=== PATIENT | male | born 1965 | race Caucasian/White ===

== ENCOUNTER 2017-11-27 09:27 | Emergency (ER) | payer OTHER ==
[2017-11-27] MEDS ORDERED: HYDROCODONE/APAP 10/325 TAB ONE (10:20)
[2017-11-27] MEDS ORDERED: COLCHICINE 0.6 MG TAB ONE (10:21)
--- NOTE | 2017-11-27 10:32 | EDPHYS ---
Physician Documentation [facility] Name: Zeus Leone Age: 52 yrs Sex: Male : 1965 Arrival Date: 11/27/2017 Time: 09:29 Bed 15 Private MD: Osbaldo Hernandez S ED Physician Dagoberto Mason HPI: 11/27 10:07 This 52 yrs old Male presents to ER via Ambulatory with complaints of Knee moi Pain. 10:07 The patient presents with decreased range of motion, pain, that is acute. The moi complaints affect the medial aspect of left knee. Context: The problem was sustained at an unknown site. Onset: The symptoms/episode began/occurred 1 week(s) ago. Modifying factors: The symptoms are alleviated by elevating leg, remaining still, the symptoms are aggravated by movement, bending knee. Associated signs and symptoms: The patient has no apparent associated signs or symptoms. Treatment prior to arrival includes: no previous treatment. Severity of symptoms: At their worst the symptoms were moderate. The patient has not experienced similar symptoms in the past. Historical: - Allergies: 09:47 NKA; iw - Home Meds: 09:47 metformin 500 mg Oral tab 1 tab 2 times per day [Active]; unknown BP medication iw [Active]; - PMHx: 09:47 Hypertension; Diabetes - NIDDM; iw - PSHx: 09:47 Carpal Tunnel Repair; adrenal gland removal; right shoulder; iw - Immunization history:: Adult Immunizations not up to date. - Social history:: Smoking status: Patient/guardian denies using tobacco. - Family history:: not pertinent. ROS: 10:07 Constitutional: Negative for fever, chills, and weight loss, Eyes: Negative for injury, moi pain, redness, and discharge, ENT: Negative for injury, pain, and discharge, Neck: Negative for injury, pain, and swelling, Cardiovascular: Negative for chest pain, palpitations, and edema, Respiratory: Negative for shortness of breath, cough, wheezing, and pleuritic chest pain, Abdomen/GI: Negative for abdominal pain, nausea, vomiting, diarrhea, and constipation, Back: Negative for injury and pain, : Negative for injury, bleeding, discharge, and swelling, Skin: Negative for injury, rash, and discoloration, Neuro: Negative for headache, weakness, numbness, tingling, and seizure, Psych: Negative for depression, anxiety, suicide ideation, homicidal ideation, and hallucinations, Allergy/Immunology: Negative for hives, rash, and allergies, Endocrine: Negative for neck swelling, polydipsia, polyuria, polyphagia, and marked weight changes, Hematologic/Lymphatic: Negative for swollen nodes, abnormal bleeding, and unusual bruising. 10:07 MS/extremity: Positive for tenderness, of the medial aspect of left knee. Exam: 10:07 Constitutional: This is a well developed, well nourished patient who is awake, alert, moi and in no acute distress. Head/Face: Normocephalic, atraumatic. Eyes: Pupils equal round and reactive to light, extra-ocular motions intact. Lids and lashes normal. Conjunctiva and sclera are non-icteric and not injected. Cornea within normal limits. Periorbital areas with no swelling, redness, or edema. ENT: Nares patent. No nasal discharge, no septal abnormalities noted. Tympanic membranes are normal and external auditory canals are clear. Oropharynx with no redness, swelling, or masses, exudates, or evidence of obstruction, uvula midline. Mucous membranes moist. Neck: Trachea midline, no thyromegaly or masses palpated, and no cervical lymphadenopathy. Supple, full range of motion without nuchal rigidity, or vertebral point tenderness. No Meningismus. Chest/axilla: Normal chest wall appearance and motion. Nontender with no deformity. No lesions are appreciated. Cardiovascular: Regular rate and rhythm with a normal S1 and S2. No gallops, murmurs, or rubs. Normal PMI, no JVD. No pulse deficits. Respiratory: Lungs have equal breath sounds bilaterally, clear to auscultation and percussion. No rales, rhonchi or wheezes noted. No increased work of breathing, no retractions or nasal flaring. Abdomen/GI: Soft, non-tender, with normal bowel sounds. No distension or tympany. No guarding or rebound. No evidence of tenderness throughout. Back: No spinal tenderness. No costovertebral tenderness. Full range of motion. Male : Normal genitalia with no discharge or lesions. Skin: Warm, dry with normal turgor. Normal color with no rashes, no lesions, and no evidence of cellulitis. Neuro: Awake and alert, GCS 15, oriented to person, place, time, and situation. Cranial nerves II-XII grossly intact. Motor strength 5/5 in all extremities. Sensory grossly intact. Cerebellar exam normal. Normal gait. Psych: Awake, alert, with orientation to person, place and time. Behavior, mood, and affect are within normal limits. 10:07 Musculoskeletal/extremity: Extremities: noted in the medial aspect of left knee: decreased ROM, pain. Vital Signs: 09:47 Pulse 68; Resp 18 S; Temp 97.2; Pulse Ox 98% on R/A; Weight 128.82 kg; Height 5 ft. 11 iw in. (180.34 cm); Pain 9/10; 10:45 BP 157 / 93; Pulse 71; Resp 18; Pulse Ox 99% on R/A; em 09:47 Body Mass Index 39.61 (128.82 kg, 180.34 cm) iw MDM: 09:37 Patient medically screened. [facility] 10:07 Data reviewed: vital signs, nurses notes, radiologic studies. [facility] 11/27 10:07 Order name: Knee Left 3 View XRAY [facility] 11/27 10:07 Order name: Knee Immobilizer; Complete Time: 10:14 [facility] 11/27 10:07 Order name: Ice pack; Complete Time: 10:14 [facility] Administered Medications: 10:25 Drug: [place] 10 mg-325 mg 1 tabs Route: PO; em 11:17 Follow up: Response: No adverse reaction; Pain is decreased em 10:25 Drug: Colcrys 1.2 mg Route: PO; em 11:17 Follow up: Response: No adverse reaction em 11:13 Drug: Colcrys 0.6 mg Route: PO; em 11:17 Follow up: Response: No adverse reaction; Medication administered at discharge. em Disposition: 11/27/17 10:32 Discharged to Home. Impression: Pain in left knee, Osteoarthritis of knee - tricarpment involment. - Condition is Stable. - Discharge Instructions: Knee Bracing, Knee Pain, Knee Pain, [id number]. - Prescriptions for Ibuprofen 600 mg Oral Tablet - take 1 tablet by ORAL route every 6 hours As needed take with food; 24 tablet. Tylenol- Codeine #3 300-30 mg Oral Tablet - take 2 tablet by ORAL route every 6 hours As needed; 30 tablet. - Medication Reconciliation Form, Thank You Letter, Antibiotic Education, Prescription Opioid Use form. - Follow up: Osbaldo Hernandez; When: 2 - 3 days; Reason: Recheck today's complaints, Continuance of care, Re-evaluation by your physician. Follow up: Kevyn Mike; When: 2 - 3 days; Reason: Recheck today's complaints, Re-evaluation by your physician. - Problem is new. - Symptoms have improved. Signatures: Dispatcher [employer] EDDagoberto De La Rosa MD MD cha Munoz, Edgar, NARROW FABRIC CALENDERER NARROW FABRIC CALENDERER em Ester Gonzales RN RN iw Corrections: (The following items were deleted from the chart) 11:18 10:32 11/27/2017 10:32 Discharged to Home. Impression: Pain in left knee; em Osteoarthritis of knee - tricarpment involment. Condition is Stable. Discharge Instructions: Knee Bracing, Knee Pain, Knee Pain, [id number]. Prescriptions for Ibuprofen 600 mg Oral Tablet - take 1 tablet by ORAL route every 6 hours As needed take with food; 24 tablet, Tylenol-Codeine #3 300-30 mg Oral Tablet - take 2 tablet by ORAL route every 6 hours As needed; 30 tablet. and Forms are Medication Reconciliation Form, Thank You Letter, Antibiotic Education, Prescription Opioid Use. Follow up: Osbaldo Hernandez; When: 2 - 3 days; Reason: Recheck today's complaints, Continuance of care, Re-evaluation by your physician. Follow up: Kevyn Mike; When: 2 - 3 days; Reason: Recheck today's complaints, Re-evaluation by your physician. Problem is new. Symptoms have improved. moi
--- NOTE | 2017-11-27 10:32 | ER ---
Nurse's Notes [facility] Name: Zeus Leone Age: 52 yrs Sex: Male : 1965 Arrival Date: 11/27/2017 Time: 09:29 Bed 15 Private MD: Osbaldo Hernandez S Diagnosis: Pain in left knee;Osteoarthritis of knee-tricarpment involment Presentation: 11/27 09:44 Presenting complaint: Patient states: has had left knee pain over past few months, iw walks up and down stairs a lot at work, pain has gotten worse, denies injury to knee, also has hx of gout but this feels different, no redness or swelling noted to knee. Transition of care: patient was not received from another setting of care. Onset of symptoms was August 2017. Initial Sepsis Screen: Does the patient meet any 2 criteria? No. Patient's initial sepsis screen is negative. Does the patient have a suspected source of infection? No. Patient's initial sepsis screen is negative. Care prior to arrival: None. 09:44 Method Of Arrival: Ambulatory iw 09:44 Acuity: YAIR 4 iw Historical: - Allergies: 09:47 NKA; iw - Home Meds: 09:47 metformin 500 mg Oral tab 1 tab 2 times per day [Active]; unknown BP medication iw [Active]; - PMHx: 09:47 Hypertension; Diabetes - NIDDM; iw - PSHx: 09:47 Carpal Tunnel Repair; adrenal gland removal; right shoulder; iw - Immunization history:: Adult Immunizations not up to date. - Social history:: Smoking status: Patient/guardian denies using tobacco. - Family history:: not pertinent. Screenin:05 Abuse screen: Denies threats or abuse. Nutritional screening: No deficits noted. em Tuberculosis screening: No symptoms or risk factors identified. Fall Risk None identified. Assessment: 10:22 General: Appears in no apparent distress. comfortable, Behavior is calm, cooperative. em Pain: Complains of pain in left leg Pain currently is 9 out of 10 on a pain scale. Neuro: Level of Consciousness is awake, alert, obeys commands, Oriented to person, place, time, situation. Cardiovascular: Capillary refill < 3 seconds Patient's skin is warm and dry. Respiratory: Airway is patent Respiratory effort is even, unlabored, Respiratory pattern is regular, symmetrical. GI: Abdomen is round non-distended. : No signs and/or symptoms were reported regarding the genitourinary system. Derm: Skin is intact, Skin is pink, warm \T\ dry. Musculoskeletal: Range of motion: intact in all extremities. 10:35 Reassessment: Patient appears in no apparent distress at this time. I agree with above iw assessment by Rafael Lawton LVN. 11:15 Reassessment: Patient appears in no apparent distress at this time. Patient and/or em family updated on plan of care and expected duration. Pain level reassessed. Patient is alert, oriented x 3, equal unlabored respirations, skin warm/dry/pink. Vital Signs: 09:47 Pulse 68; Resp 18 S; Temp 97.2; Pulse Ox 98% on R/A; Weight 128.82 kg; Height 5 ft. 11 iw in. (180.34 cm); Pain 9/10; 10:45 BP 157 / 93; Pulse 71; Resp 18; Pulse Ox 99% on R/A; em 09:47 Body Mass Index 39.61 (128.82 kg, 180.34 cm) iw ED Course: 09:29 Patient arrived in ED. mr 09:29 Osbaldo Hernandez MD is Private Physician. mr 09:37 Dagoberto Mason MD is Attending Physician. moi 09:46 Triage completed. iw 09:47 Arm band placed on. iw 10:05 Rafael Lawton LVN is Primary Nurse. em 10:22 Patient has correct armband on for positive identification. Bed in low position. Call em light in reach. Adult w/ patient. 10:30 Osbaldo Hernandez MD is Referral Physician. moi 10:30 Kevyn Mike MD is Referral Physician. moi 10:45 No provider procedures requiring assistance completed. Patient did not have IV access em during this emergency room visit. 11:00 Crutch training done. Knee immobilizer applied on left knee. em 11:08 Knee Left 3 View XRAY In Process Unspecified. EDMS Administered Medications: 10:25 Drug: [place] 10 mg-325 mg 1 tabs Route: PO; em 11:17 Follow up: Response: No adverse reaction; Pain is decreased em 10:25 Drug: Colcrys 1.2 mg Route: PO; em 11:17 Follow up: Response: No adverse reaction em 11:13 Drug: Colcrys 0.6 mg Route: PO; em 11:17 Follow up: Response: No adverse reaction; Medication administered at discharge. em Outcome: 10:32 Discharge ordered by . moi 11:15 Discharged to home ambulatory, with crutches. em 11:15 Condition: good 11:15 Discharge instructions given to patient, family, Instructed on discharge instructions, follow up and referral plans. medication usage, Demonstrated understanding of instructions, follow-up care, medications, Prescriptions given X 2. 11:18 Patient left the ED. em Signatures: Dispatcher [employer] EDMS Dagoberto Mason MD MD cha Rivera, Maria mr Munoz, Edgar, EQUIPMENT MANAGER EQUIPMENT MANAGER em Ester Gonzales, TEJ RN iw
--- NOTE | 2017-11-27 13:49 | RAD REPORT ---
EXAM DESCRIPTION: RAD - Knee Left 3 View - 11/27/2017 11:08 am CLINICAL HISTORY: Knee pain COMPARISON: None. FINDINGS: No fracture, dislocation or periosteal reaction.No joint effusion seen. No significant pratik nt space narrowing. Meniscus calcifications are present. Marginal spurs are present. There is spurrin g of the intercondylar notch and tibial spine. No soft tissue abnormality. No foreign body seen. IMPRESSION: Moderate for age degenerative changes in the knee. No acute bone or joint finding. Clinical concerns for internal derangement or occult bony injury could be further assessed with MR im aging.
== END 2017-11-27 11:18 | disposition home or self-care (01) ==
LOC: ER 09:27
DX: M17.12 Unilateral primary osteoarthritis, left knee (principal); I10 Essential (primary) hypertension; E11.9 Type 2 diabetes mellitus without complications
CPT/HCPCS: 99284

== ENCOUNTER 2020-06-14 12:48 | Emergency (ER) | payer OTHER ==
--- OUTSIDE RECORDS SUMMARY | 2020-06-14 12:53 | XMS REPORT | Summary of Care ---
:1965 Author Organization [facility] Address [address] [place] [id number] Care Team Providers Name Role Phone Osbaldo Hernandez MD Primary Care Provider Reason for Visit Reason Comments LAB WORK Auth/Cert Status Reason Specialty Diagnoses / Procedures Referred By C ontact Referred To Contact Phlebotomy Diagnoses Generalized abdominal pain Adc Pob Lab Draw Procedures FECES CULTURE URINE CULTURE UA CMP CBC Professional Office Building [address] , [address] [place] [address] Phone: Fax: Encounter Details Date Type Department Care Team Description 05/14/2020 Taxicab Dispatcher Visit [facility] Anaya Newton FNP [address] [phone] Generalized Professional Office Pob, Adc Lab Main abdominal pain Building Phlebotomy Lab Professional Office Building [address] , [address] [place] [address] Allergies No Known Allergiesdocumented as of this encounter (statuses as of 05/14/2020) Medications Medication Sig Dispensed Refills Start Date End Date Status ONETOUCH VERIO strip TEST BLOOD 100 Strip 0 01/25/2018 Active SUGAR 2 TIMES A DAY sildenafil 100 mg tablet Take 1 tablet 24 tablet 1 03/09/2018 Active by mouth as needed for Other (prn, sexual activity). LISINOPRIL 20 mg TAKE 1 TABLET 60 tablet 0 05/15/2019 Active tabletIndications: BY MOUTH TWICE Uncontrolled hypertension A DAY SITagliptin 100 mg Take 1 tablet 30 tablet 3 06/22/2019 Active tabletIndications: Type 2 by mouth diabetes mellitus without daily. complication, without long-term current use of insulin METFORMIN 1,000 mg TAKE 1 TABLET 180 tablet 1 01/08/2020 Active tabletIndications: Type 2 BY MOUTH TWICE diabetes mellitus without A DAY WITH complication, without MEALS long-term current use of insulin ATORVASTATIN 10 mg tablet TAKE 1 TABLET 30 tablet 1 01/31/2020 Active BY MOUTH EVERYDAY AT BEDTIME HYDROCHLOROTHIAZIDE 12.5 TAKE 1 CAPSULE 90 capsule 0 0 Active mg capsuleIndications: BY MOUTH EVERY Essential hypertension DAY CARVEDILOL 12.5 mg TAKE 1 TABLET 180 tablet 0 03/29/2020 Active tabletIndications: BY MOUTH TWICE Essential hypertension A DAY WITH MEALS dicyclomine (BENTYL) 10 Take 2 180 capsule 0 05/14/2020 Active mg capsuleIndications: capsules by 0 Generalized abdominal mouth 3 pain, Diarrhea, (three) times unspecified type daily for 30 days. documented as of this encounter (statuses as of 05/14/2020) Active Problems Problem Noted Date Obesity (BMI 30-39.9) 11/16/2018 Uncontrolled hypertension 10/07/2017 Paresthesia of both feet 10/07/2017 Lower extremity edema 10/07/2017 Type 2 diabetes mellitus without complication 10/08/19 18 Other hyperlipidemia 10/07/2017 documented as of this encounter (statuses as of 05/14/2020) Resolved Problems Problem Noted Date Resolved Date Rash 10/07/2017 10/28/2017 Other specified hypothyroidism 10/07/2017 8 Chronic gout of multiple sites, unspecified cause 10/07/2017 10/28/2017 documented as of this encounter (statuses as of 05/14/2020) Social History Tobacco Use Types Packs/Day Years Used Date Never Smoker Smokeless Tobacco: Never Used Alcohol Use Drinks/Week oz/Week Comments Yes 2 per month Sex Assigned at Date Recorded Not on file COVID-19 Exposure Response Date Recorded In the last month, have you been in contact with No / Unsure 05/14/2020 11:35 AM CDT someone who was confirmed or suspected to have Coronavirus / COVID-19? documented as of this encounter Last Filed Vital Signs Not on filedocumented in this encounter Nursing Notes Cathy Wright - 05/14/2020 12:30 PM CDT Venipuncture collection performed by clean technique on the right anticubitus. Total of 1 attempts were made. Slight pressure and a bandage/dressing were applied to the site(s). The patient experiencedno complications. The following specimens were processed according to instructions and sent to [facility] laboratories per lab order on [id number]: LT BLUE 1 SST RED 1 LAV PPT DK GREEN (LiHep) DK GREEN (SodH) OSCAR DK BLUE (K2) DK BLUE (S) ACD Blood Culture NIPT/NTD Patient has been identified by and name and was provided with cup, antiseptic towelette, and clean catch instructions. 2 urine specimen(s) sent. 1 Unpreserved 1 Urine Culture Aptima tube Other urine Patient was given kit to collect stool specimen with instructions to return at a later date. documented in this encounter Plan of Treatment Date Type Specialty Care Team Description 05/14/2020 Appointment Radiology Anaya Newton FNP [address] [place] [phone] 05/23/2020 Office Visit Family Medicine Anaya Newton FNP [address] [place] [address] [phone] Health Maintenance Due Date Last Done Comments Depression Screening 1975 FOOT EXAM 1981 DTaP,Tdap,and Td Vaccines (1 1982 - Tdap) COLON CANCER SCREENING 2013 ANNUAL FIT/FOBT COLON CANCER SCREENING FIT 2013 DNA EVERY 3 YEARS COLON CANCER SCREENING 2013 SIGMOIDOSCOPY EVERY 5 YEARS COLONOSCOPY 2013 Colorectal Cancer Screening 2013 Zoster Recombinant Vaccine 2013 (SHINGRIX) (1 of 2) HgA1C 12/22/2019 06/22/2019, 03/09/2018, 10/07/2017 INFLUENZA VACCINE (#1) 2020 EYE EXAM 06/21/2020 06/21/2019 CREATININE (SERUM) 06/22/2020 06/22/2019, 11/11/2018, 03/09/2018, Additional history exists LDL-C 06/22/2020 06/22/2019, 03/09/2018, 10/07/2017 URINE MICROALBUMIN 06/22/2020 06/22/2019 HEPATITIS C (HCV) SCREEN Completed 10/07/2017 PNEUMOCOCCAL 0-64 YEARS Aged Out No longe r eligible COMBINED SERIES based on patient 's age to complete this topic documented as of this encounter Implants Implanted Type Area Pin Machine Tender Device Shelf Model / Serial Identifier Expiration / Lot Date Lens, Konstantin #[id number] - [id number] LENS Right: Konstantin 09/15/2021 [id number] / Implanted: Qty: 1 on 11/16/2018 by Jose Alejandro Santana MD at [facility] Eye 1 [id number] / N/A documented as of this encounter Results Not on filedocumented in this encounter Visit Diagnoses Diagnosis Generalized abdominal pain Abdominal pain, generalized documented in this encounter Additional Health Concerns Infection Onset Date Last Indicated Resolved Time COVID-19 Rule Out 05/14/2020 05/14/2020 documented as of this encounter documented as of this encounter
--- OUTSIDE RECORDS SUMMARY | 2020-06-14 12:53 | XMS REPORT | Summary of Care ---
:1965 Author Organization [facility] Address [address] [place] [address] Care Team Providers Name Role Phone Osbaldo Hernandez MD Primary Care Provider Encounter Details Date Type Department Care Team Description 05/14/2020 Letter (Out) [facility] [employer] Message s Doctor Unassigned, No [address] [facility] [place] [address] [address] [facility] [phone] [place] [address] Allergies No Known Allergiesdocumented as of this [...] TWICE Essential hypertension A DAY WITH MEALS documented as of this encounter (statuses as [...] Assigned at Date Recorded Not on file documented as of this encounter Last Filed Vital Signs Not on filedocumented in this encounter Plan of Treatment Date Type Specialty Care Team Description 05/14/2020 Urgent Care Family Medicine Anaya Newton, [employer] TECHNICIAN [address] [place] [phone] Provider, [facility] Health Maintenance Due Date Last Done Comments [...] of this encounter Implants Implanted Type Area Sports Commentator Device Shelf Model / Serial Identifier Expiration / Lot Date Lens, Konstantin #[id number] - [id number] LENS Right: Konstantin 09/15/2021 [id number] / Implanted: Qty: 1 on 11/16/2018 by Jose Alejandro Santana MD at [facility] Eye 1 [id number] / N/A documented as of this encounter Results Not on filedocumented in this encounter Insurance Payer Benefit Plan / Group Subscriber ID Effective Dates Phone Address Type AET FABY PAE[place] [id number] 2015-Present PPO documented as of this encounter
--- OUTSIDE RECORDS SUMMARY | 2020-06-14 12:53 | XMS REPORT | Continuity of Care Document ---
:1965 Author Organization [facility] t Address [address] [place] [address] Care Team Providers Name Role Phone David MAGUIRE Attending Clinician Lamar MALONEY Attending Clinician Problems This patient has no known problems. Allergies, Adverse Reactions, Alerts This patient has no known allergies or adverse reactions. Medications This patient has no known medications. Procedures This patient has no known procedures. Encounters Start End Encounter Admission Attending Care Care Encounter Source Date/Time Date/Time Type Type Clinicians Facility Department ID 2020-06-06 2020-06-06 Refill REANNA Hernandez [id number] 00:00:00 00:00:00 [facility] [id number] [place] [id number] [facility] [phone] nal [address] 2020-05-23 2020-05-23 Office REANNA Newton [id number] 13:54:55 14:41:19 Visit Anaya [facility] [id number] [place] [id number] [facility] [phone] nal [address] Results This patient has no known results.
--- OUTSIDE RECORDS SUMMARY | 2020-06-14 12:53 | XMS REPORT | Summary of Care ---
:1965 Author Organization [facility] Address [address] [place] [address] Care Team Providers Name Role Phone Osbaldo Hernandez MD Primary Care Provider Reason for Visit Reason Comments Refill Request Encounter Details Date Type Department Care Team Description 05/09/2020 Refill [facility] Family Medicine Chantal gallo, LIZETTE James Refill Request - [address] [place] [address] [place] [address] [phone] Allergies No Known Allergiesdocumented as of this encounter (statuses as of 05/14/2020) Medications Medication Sig Dispensed Refills Start End Date Status Date ONETOUCH VERIO strip TEST BLOOD 100 Strip 0 Active SUGAR 2 8 TIMES A DAY sildenafil 100 mg tablet Take 1 24 tablet 1 Active tablet by 8 mouth as needed for Other (prn, sexual activity). LISINOPRIL 20 mg TAKE 1 60 tablet 0 Act britta tabletIndications: TABLET BY 9 Uncontrolled MOUTH TWICE hypertension A DAY SITagliptin 100 mg Take 1 30 tablet 3 A ctive tabletIndications: Type tablet by 9 2 diabetes mellitus mouth daily. without complication, without long-term current use of insulin METFORMIN 1,000 mg TAKE 1 180 tablet 1 Active tabletIndications: Type TABLET BY 0 2 diabetes mellitus MOUTH TWICE without complication, A DAY WITH without long-term MEALS current use of insulin ATORVASTATIN 10 mg TAKE 1 30 tablet 1 A ctive tablet TABLET BY 0 MOUTH EVERYDAY AT BEDTIME CARVEDILOL 12.5 mg TAKE 1 180 tablet 0 Active tabletIndications: TABLET BY 0 Essential hypertension MOUTH TWICE A DAY WITH MEALS HYDROCHLOROTHIAZIDE 12.5 TAKE 1 14 capsule 0 Active mg capsuleIndications: CAPSULE BY 0 Essential hypertension MOUTH EVERY DAY HYDROCHLOROTHIAZIDE 12.5 TAKE 1 90 capsule 0 04/19 Discontinued mg capsuleIndications: CAPSULE BY 0 20 Essential hypertension MOUTH EVERY DAY documented as of this encounter (statuses as [...] Signs Not on filedocumented in this encounter Miscellaneous Notes Telephone Encounter - Eve Harrison PA - 05/10/2020 10:18 PM CDTI have not seen patient since 06/2019. Was supposed to complete 4 week check up but never did. Needsto be seen and complete fasting labs. If completely out can give 14 day supply documented in this encounter Plan of Treatment Date Type Specialty Care Team Description 05/14/2020 Hospital Encounter Radiology Oj Newton [employer]KR[employer] TRAPPER Arrived [address] [phone] 05/23/2020 Office Visit Family Medicine Erica Newtonthia, [employer]KRAT TRAPPER [address] [phone] Health Maintenance Due Date Last [...] of this encounter Implants Implanted Type Area Food Service Attendant Device Shelf Model / Serial Identifier Expiration / Lot Date Lens, Konstantin #[id number] - [id number] LENS Right: Konstantin 09/15/2021 SN60WF / Implanted: Qty: 1 on 11/16/2018 by Jose Alejandro Santana MD at [facility] Eye 9 [id number] / N/A documented as of this encounter Results Not on filedocumented in this encounter Visit Diagnoses Diagnosis Essential hypertension Unspecified essential hypertension Generalized abdominal pain Abdominal pain, generalized documented in this encounter Additional Health Concerns Infection Onset Date Last Indicated Resolved Time COVID-19 Rule Out 05/14/2020 05/14/2020 documented as of this encounter Insurance Payer Benefit Plan / Group Subscriber ID Effective Dates Phone Address Type AETNA AET[place] CHOICE [place] [id number] 2018-Present POS documented as of this encounter
--- OUTSIDE RECORDS SUMMARY | 2020-06-14 12:53 | XMS REPORT | Summary of Care ---
:1965 Author Organization [facility] Address [address] [place] [address] Care Team Providers Name Role Phone Osbaldo Hernandez MD Primary Care Provider Reason for Visit Reason Comments Refill Request Encounter Details Date Type Department Care Team Description 03/28/2020 Refill [facility] Family Medicine Chantal gallo, LIZETTE James Refill Request - [address] [place] [address] [place] [address] [phone] Allergies No Known Allergiesdocumented as of this encounter (statuses as of 03/29/2020) Medications Medication Sig Dispensed Refills Start End [...] TABLET BY 0 MOUTH EVERYDAY AT BEDTIME HYDROCHLOROTHIAZIDE 12.5 TAKE 1 90 capsule 0 Active mg capsuleIndications: CAPSULE BY 0 Essential hypertension MOUTH EVERY DAY CARVEDILOL 12.5 mg TAKE 1 180 tablet 0 Active tabletIndications: TABLET BY 0 Essential hypertension MOUTH TWICE A DAY WITH MEALS carvedilol 12.5 mg TAKE 1 60 tablet 5 03/29/20 D iscontinued tabletIndications: TABLET BY 9 20 Essential hypertension MOUTH TWICE A DAY WITH MEALS documented as of this encounter (statuses as of 03/29/2020) Active Problems Problem Noted Date Obesity (BMI 30-39.9) 11/16/2018 Uncontrolled hypertension 10/07/2017 Paresthesia of both feet 10/07/2017 Lower extremity edema 10/07/2017 Type 2 diabetes mellitus without complication 10/08/19 18 Other hyperlipidemia 10/07/2017 documented as of this encounter (statuses as of 03/29/2020) Resolved Problems Problem Noted Date Resolved Date Rash 10/07/2017 10/28/2017 Other specified hypothyroidism 10/07/2017 8 Chronic gout of multiple sites, unspecified cause 10/07/2017 10/28/2017 documented as of this encounter (statuses as of 03/29/2020) Social History Tobacco Use Types Packs/Day Years Used Date Never Smoker Smokeless Tobacco: Never Used Alcohol Use Drinks/Week oz/Week Comments Yes 2 per month Sex Assigned at Date Recorded Not on file documented as of this encounter Last Filed Vital Signs Not on filedocumented in this encounter Plan of Treatment Health Maintenance Due Date Last Done Comments [...] of this encounter Implants Implanted Type Area Thread Laster Device Shelf Model / Serial Identifier Expiration / Lot Date Lens, Konstantin #Sn60wf - [id number] LENS Right: Konstantin 09/15/2021 SN60WF / Implanted: Qty: 1 on 11/16/2018 by Jose Alejandro Santana MD at [facility] Eye 2 [id number] / N/A documented as of this encounter Results Not on filedocumented in this encounter Visit Diagnoses Diagnosis Essential hypertension Unspecified essential hypertension documented in this encounter Insurance Payer Benefit Plan / Group Subscriber ID Effective Dates Phone Address Type AETNA F[employer]Y PA[employer] [id number] 2015-Present PPO documented as of this encounter
--- OUTSIDE RECORDS SUMMARY | 2020-06-14 12:54 | XMS REPORT | Summary of Care ---
:1965 Author Organization [facility] Address [address] [place] [address] Care Team Providers Name Role Phone Osbaldo Hernandez MD Primary Care Provider Reason for Visit Reason Comments Results Encounter Details Date Type Department Care Team Description 05/15/2020 Telephone [facility] Family Medicine Osbaldo Hernandez MD Results - [address] [place] [address] [place] [address] [phone] Allergies No Known Allergiesdocumented as of this encounter (statuses as of 05/15/2020) Medications Medication Sig Dispensed Refills Start Date [...] 01/31/2020 Active BY MOUTH EVERYDAY AT BEDTIME CARVEDILOL 12.5 mg TAKE 1 TABLET 180 tablet 0 03/29/2020 Active tabletIndications: BY MOUTH TWICE Essential hypertension A DAY WITH MEALS HYDROCHLOROTHIAZIDE 12.5 TAKE 1 CAPSULE 14 capsule 0 0 Active mg capsuleIndications: BY MOUTH EVERY Essential hypertension DAY dicyclomine (BENTYL) 10 Take 2 180 capsule 0 05/14/2020 Active mg capsuleIndications: capsules by 0 Generalized abdominal mouth 3 pain, Diarrhea, (three) times unspecified type daily for 30 days. documented as of this encounter (statuses as of 05/15/2020) Active Problems Problem Noted Date Obesity (BMI 30-39.9) 11/16/2018 Uncontrolled hypertension 10/07/2017 Paresthesia of both feet 10/07/2017 Lower extremity edema 10/07/2017 Type 2 diabetes mellitus without complication 10/08/19 18 Other hyperlipidemia 10/07/2017 documented as of this encounter (statuses as of 05/15/2020) Resolved Problems Problem Noted Date Resolved Date Rash 10/07/2017 10/28/2017 Other specified hypothyroidism 10/07/2017 8 Chronic gout of multiple sites, unspecified cause 10/07/2017 10/28/2017 documented as of this encounter (statuses as of 05/15/2020) Social History Tobacco Use Types Packs/Day Years [...] this encounter Miscellaneous Notes Telephone Encounter - Monique Fernandez RN - 05/15/2020 3:[address] abdomen show fatty liver and spleen, kidney stones on both sides but no signs off obstruction, and a small gall stone that is not inflamed. Continue treatment plan from this visit, stool culture and labs still pending. Due to findings of the CT, and his symptoms, I recommend he sees GI. Referral made. Telephone Encounter - Valencia Velasco - 05/15/2020 10:20 AM CDTPt returning call back in regards to CT results. documented in this encounter Plan of Treatment Date Type Specialty Care Team Description 05/23/2020 Office Visit Family Medicine Anaya Newton, VP GENETIC [address] [address] Health Maintenance Due Date Last Done [...] VACCINE (#1) 2020 EYE EXAM 06/21/2020 06/21/2019 LDL-C 06/22/2020 06/22/2019, 03/09/2018, 10/07/2017 URINE MICROALBUMIN 06/22/2020 06/22/2019 CREATININE (SERUM) 05/14/2021 05/14/2020, 06/22/2019, 11/11/2018, Additional history exists HEPATITIS C (HCV) SCREEN Completed 10/07/2017 PNEUMOCOCCAL 0-64 YEARS Aged Out No longe r eligible COMBINED SERIES based on patient 's age to complete this topic documented as of this encounter Implants Implanted Type Area Lottery Manager Device Shelf Model / Serial Identifier Expiration / Lot Date Lens, Konstantin #Sn60wf - [id number] LENS Right: Konstantin 09/15/2021 SN60WF / Implanted: Qty: 1 on 11/16/2018 by Jose Alejandro Santana MD at [facility] Eye 8 [id number] / N/A documented as of this encounter Results Not on filedocumented in this encounter Additional Health Concerns Infection Onset Date Last Indicated Resolved Time COVID-19 Rule Out 05/14/2020 05/14/2020 documented as of this encounter Insurance Payer Benefit Plan / Group Subscriber ID Effective Dates Phone Address Type AETNA AETNA CHOICE POS II [id number] 2018-Present POS documented as of this encounter
--- OUTSIDE RECORDS SUMMARY | 2020-06-14 12:54 | XMS REPORT | Summary of Care ---
:1965 Author Organization [facility] Address [address] [place] [id number] Care Team Providers Name Role Phone Osbaldo Hernandez MD Primary Care Provider Reason for Referral MRI/CAT Scan (STAT) Status Reason Specialty Diagnoses / Referred By Referred To Procedures Contact Contact Closed Diagnostic Diagnoses Generalized abdominal pain Anaya Newton, Radiology Procedures CT ABDOMEN WO CONTRAST CT ABDOMEN WO CONTRAST FOIL CUTTER [address] [phone] (Routine) Status Reason Specialty Diagnoses / Procedures Referred By Ann rondon To Contact Contact New Request Gastroenterology Diagnoses Generalized abdominal pain Diarrhea, unspecified type Anene, Procedures CONSULT/REFERRAL GASTROENTEROLOGY Anaya, FOIL CUTTER [address] [phone] Reason for Visit Reason Comments Diarrhea Started a little over a lia h ago. Everytime pt eats anything he has to go to the bathroom almost im mediantly or with in 20 minutes, sometimes it is diarrhea sometimes its regular. Pt is having lots of bloating and gas and today he had crampin g. Every morning it seems he has to get up and make a run for the bathr oom. STOMACH ACHE cramping Auth/Cert Status Reason Specialty Diagnoses / Procedures Referred By Bernie lee Referred To Contact Phlebotomy Diagnoses Generalized abdominal pain Adc Pob Lab Draw Procedures FECES CULTURE URINE CULTURE UA CMP CBC Professional Office Building [address] [facility] [address], [address] [place] [address] Phone: Fax: Encounter Details Date Type Department Care Team Description 05/14/2020 Urgent Care [facility] Family Oj Newton, FOIL CUTTER [address] [place] [phone] Diarrhea, unspecified type (Primary Dx); Medicine - [place] Provider, [facility] Exposure to SARS-associated coronavirus; [address] [place] [address] Generalize d abdominal pain; Drive [place] [phone] Allergies No Known Allergiesdocumented as of this encounter (statuses as of 05/14/2020) Medications Medication Sig Dispensed Refills Start End Date Status Date ONETOUCH VERIO strip TEST BLOOD 100 Strip 0 Active SUGAR 2 8 TIMES A DAY sildenafil 100 mg Take 1 24 tablet 1 Ac tive tablet tablet by 8 mouth as needed for [...] hypertension MOUTH TWICE A DAY WITH MEALS dicyclomine (BENTYL) 10 Take 2 180 capsule 0 05/20 Active mg capsuleIndications: capsules by 0 20 Generalized abdominal mouth 3 pain, Diarrhea, (three) unspecified type times daily for 30 days. HYDROCHLOROTHIAZIDE TAKE 1 90 capsule 0 05/14/20 Discontinued 12.5 mg CAPSULE BY 0 20 capsuleIndications: MOUTH EVERY Essential hypertension DAY documented as of this encounter (statuses [...] of this encounter Last Filed Vital Signs Vital Sign Reading Time Taken Comments Blood Pressure 173/94 05/14/2020 11:38 AM CDT Pulse 72 05/14/2020 11:37 AM CDT Temperature 36.7 C (98.1 F) 05/14/2020 11:37 AM CDT Respiratory Rate 20 05/14/2020 11:37 AM CDT Oxygen Saturation 96% 05/14/2020 11:37 AM CDT Inhaled Oxygen Concentration - - Weight 117.9 kg (260 lb) 05/14/2020 11:37 AM CDT Height 180.3 cm (5' 11") 05/14/2020 11:37 AM CDT Body Mass Index 36.26 05/14/2020 11:37 AM CDT documented in this encounter Patient Instructions Patient InstructionsAnaya Newton FNP - 05/14/2020 11:20 AM CDT Patient Education Abdominal Pain Abdominal pain is pain in the stomach or belly area. Everyone has this pain from time to time. In many cases it goes away on its own. But abdominal pain can sometimes be due to a serious problem, such as appendicitis. So its important to know when to get help. Causes of abdominal pain There are many possible causes of abdominal pain. Common causes in adults include: Constipation, diarrhea, or gas Stomach acid flowing back up into the esophagus (acid reflux or heartburn) Severe acid reflux, called GERD (gastroesophageal reflux disease) A sore in the lining of the stomach or small intestine (peptic ulcer) Inflammation of the gallbladder, liver,or pancreas Gallstones or kidney stones Appendicitis Intestinal blockage An internal organ pushing through a muscle or other tissue (hernia) Urinary tract infections In women, menstrual cramps, fibroids, ovarian cysts, pelvic inflammatory disease, or endometriosis Inflammation or infection of the intestines, including Crohn's disease and ulcerative colitis Irritable bowel syndrome Diagnosing the cause of abdominal pain Your healthcare provider will give you a physical exam help find the cause of your pain. If needed, you will have tests. Belly pain has many possible causes. So it can be hard to find the reason for your pain. Giving details about your pain can help. Tell your provider where and when you feel the pain, and what makes it better or worse. Also let your provider know if you have other symptoms such as: Fever Tiredness Upset stomach (nausea) Vomiting Changes in bathroom habits Blood in the stool or black, tarry stool Weight loss that you can't explain (involuntary weight loss?) Also report any family history of stomach or intestinal problems, or cancers. Tell your provider about all your alcohol use and drug use. Tell your provider about all medicines you use, including herbs, vitamins, and supplements. Treating abdominal pain Some causes of pain need emergency medical treatment right away. These include appendicitis or a bowel blockage. Other problems can be treated with rest, fluids, or medicines. Your healthcare provider can give you specific instructions for treatment or self-care based on what is causing your pain. If you have vomiting or diarrhea,sip water or other clear fluids. When you are ready to eat solid foods again, start with small amounts of tipl-zq-ztaarv, low- fat foods. These include apple sauce, toast, or crackers. When to get medical care Call 911or go to the hospital right away if you: Cant pass stool and are vomiting Are vomiting blood or have bloody diarrhea or black, tarry diarrhea Have chest, neck, or shoulder pain Feel like you might pass out Have pain in your shoulder blades with nausea Have sudden, severe belly pain Have new, severepain unlike any you have felt before Have a belly that is rigid, hard, and hurts to touch Call your healthcare provider if you have: Pain for more aofd7pmhr Bloating for more than 2days Diarrhea for more cioy3yqju A fever of 100.4F (38C) or higher, or as directed by your healthcare provider Pain that gets worse Weight loss for no reason Continued lack of appetite Blood in your stool How to prevent abdominal pain Here are some tips to help prevent abdominal pain: Eat smaller amounts of food at each meal. Don't eat greasy, fried, or other high-fat foods. Don't eat foods that give you gas. Exercise regularly. Drink plenty of fluids. To help prevent GERD symptoms: Quit smoking. Reduce alcohol and foods that increase stomach acid. Don't use aspirin or xpsd-fzg-ocrwlxp pain and fever medicines, if possible. This includes nonsteroidal anti-inflammatory drugs (NSAIDs). Lose excess weight. Finish eating at least 2 hours before you go to bed or lie down. Raise the head of your bed. Zk[employer] last reviewed this educational content on 10/17/201819996063-1611 [employer]. All rights reserved. This information is not intended as a substitute for professional medical care. Always follow your healthcare professional's instructions. Patient Education Treating Diarrhea Diarrhea happens when you have loose, watery, or frequent bowel movements. It is a common problem with many causes. Most cases of diarrhea clear up on their own. But certain cases may need treatment. Be sure to see your healthcare providerif your symptoms don't get better in a few days. Getting relief Treatment of diarrhea depends on its cause. Diarrhea caused by bacterial or parasite infection is often treated with antibiotics. Diarrhea caused by other factors, such as a stomach virus, often improves with simple home treatment. The tips below may also help ease your symptoms. Drink plenty of fluids. This helps prevent too much fluid loss (dehydration). Water, clear soups,and electrolyte solutions are good choices. Don't take alcohol, coffee, tea, or milk. These can irritate your intestines andmake symptoms worse. Suck on ice chips if drinking makes you queasy. Return to your normal diet slowly. You may want to eat bland foods at first, such as rice and toast. Also, you may need to stay away from certain foods for a while, such as dairy products. These canmake symptoms worse. Ask yourhealthcare providerif there are any other foods you should stay away from. If you were prescribed antibiotics, take them as directed. Don't take anti-diarrhea medicines without asking yourproviderfirst. Call your healthcare provider Call your healthcare provider if you have any of the following: A fever of 100.4 F ( 38.0C) or higher, or as directed by your provider Chills Severe pain Worsening diarrhea or diarrhea for more than 2 days Bloody vomit or stool Signs of dehydration (dizziness, dry mouth and tongue, rapid pulse, dark urine) Zkatter last reviewed this educational content on 12/17/201819998038-8566 [employer]. [address] [place] [address], [place] [address]. All rights reserved. This information is not intended as a substitute for professional medical care. Always follow your healthcare professional's instructions. documented in this encounter Progress Notes Anaya Newton FNP - 05/14/2020 11:20 AM CDT Cc: Chief Complaint Patient presents with Diarrhea Started a little over a month ago. Everytime pt eats anything he has to go to the bathroom almost immediantly or with in 20 minutes, sometimes it is diarrhea sometimes its regular. Pt is having lots of bloating and gas and today he had cramping. Every morning it seems he has to get up and make a runfor the bathroom. STOMACH ACHE cramping Zeus Leone is a 54 year old male. Abdominal pain and diarrhea for over 1 month. He has 3 watery stools and 2-3 normal stools per day, on average of 5-6 BM per day. Diarrhea Quality: Watery and semi-solid Severity: Mild Number of episodes: 2-3 times watery, 2 time loose Timing: Constant Progression: Unchanged Relieved by: Nothing Worsened by: Nothing Ineffective treatments: None tried Associated symptoms: abdominal pain Associated symptoms: no chills, no fever, no headaches and no vomiting Abdominal pain: Location: Generalized Quality: bloating Severity: Moderate Onset quality: Gradual Timing: Constant Progression: Unchanged Chronicity: New Risk factors: no recent antibiotic use Allergies Zeus has No Known Allergies. Medications Outpatient Medications Prior to Visit Medication Sig Dispense Refill CARVEDILOL 12.5 mg tablet TAKE 1 TABLET BY MOUTH TWICE A DAY WITH MEALS 180 tablet 0 HYDROCHLOROTHIAZIDE 12.5 mg capsule TAKE 1 CAPSULE BY MOUTH EVERY DAY 90 capsule 0 ATORVASTATIN 10 mg tablet TAKE 1 TABLET BY MOUTH EVERYDAY AT BEDTIME 30 tablet 1 METFORMIN 1,000 mg tablet TAKE 1 TABLET BY MOUTH TWICE A DAY WITH MEALS 180 tablet 1 SITagliptin 100 mg tablet Take 1 tablet by mouth daily. 30 tablet 3 LISINOPRIL 20 mg tablet TAKE 1 TABLET BY MOUTH TWICE A DAY 60 tablet 0 sildenafil 100 mg tablet Take 1 tablet by mouth as needed for Other (prn, sexual activity). 24 tablet 1 ONETOUCH VERIO strip TEST BLOOD SUGAR 2 TIMES A DAY 100 Strip 0 Facility-Administered Medications Prior to Visit Medication Dose Route Frequency Provider Last Rate Last Dose vofraitw-liwoubzcg-mjrrsgireegtd (MAXITROL) 3.5 mg/g-10,000 unit/g-0.1 % ophthalmic ointment PRN Jose Alejandro Ignacio MD 0.5 Inch at 11/16/18 1026 sodium chloride (NS) injection PRN Jose Alejandro Ignacio MD 30 mL at 11/16/18 1026 water for irrigation irrigation solution PRN Jose Alejandro Ignacio MD 30 mL at 11/16/18 1026 Histories Past Medical History: Diagnosis Date Chronic gout of multiple sites, unspecified cause 10/07/2017 Gout Hypertension Other hyperlipidemia 10/07/2017 Renal stones Thyroid disease Type 2 diabetes mellitus without complication 10/07/2017 Past Surgical History: Procedure Laterality Date ADRENALECTOMY left ENDOSCOPIC CARPAL TUNNEL RELEASE b/l KNEE ARTHROSCOPY Left 2018 PHACOEMULSIFICATION OF CATARACT WITH INTRAOCULAR LENS IMPLANT Right 11/16/2018 Surgeon: Jose Alejandro Ignacio MD; Location: [facility] REMV CATARACT INTRACAP,INSERT LENS SHOULDER ARTHROPLASTY R Social History Socioeconomic History Marital status: Spouse name: Not on file Number of children: Not on file Years of education: Not on file Highest education level: Not on file Occupational History Not on file Social Needs Financial resource strain: Not on file Food insecurity Worry: Not on file Inability: Not on file Transportation needs Medical: Not on file Non-medical: Not on file Tobacco Use Smoking status: Never Smoker Smokeless tobacco: Never Used Substance and Sexual Activity Alcohol use: Yes Comment: 2 per month Drug use: No Sexual activity: Not on file Lifestyle Physical activity Days per week: Not on file Minutes per session: Not on file Stress: Not on file Relationships Social connections Talks on phone: Not on file Gets together: Not on file Attends oriental orthodox service: Not on file Active member of club or organization: Not on file Attends meetings of clubs or organizations: Not on file Relationship status: Not on file Intimate partner violence Fear of current or ex partner: Not on file Emotionally abused: Not on file Physically abused: Not on file Forced sexual activity: Not on file Other Topics Concern Not on file Social History Narrative Lives at home with and 2 kids Works at [employer] Family History Problem Relation Age of Onset No Significant Medical Problems Mother Hypercholesterolemia Father Hypertension Father Diabetes Maternal Grandmother Diabetes Maternal Grandfather Diabetes Paternal Grandmother Diabetes Paternal Grandfather Review of Systems Constitutional: Negative. Negative for chills, fatigue and fever. Respiratory: Negative. Negative for cough, chest tightness, shortness of breath and wheezing. Cardiovascular: Negative. Negative for chest pain, palpitations and leg swelling. Gastrointestinal: Positive for abdominal pain and diarrhea. Negative for vomiting. Neurological: Negative. Negative for syncope, weakness, light-headedness and headaches. Psychiatric/Behavioral: Negative. Endocrine: Endocrine negative Vital Signs BP (!) 173/94 | Pulse 72 | Temp 36.7 C (98.1 F) | Resp 20 | Ht 5' 11" (1.803 m) | Wt 260 lb(117.9 kg) | SpO2 96% | BMI 36.26 kg/m Physical Exam Vitals signs and nursing note reviewed. Constitutional: General: He is not in acute distress. Appearance: He is well-developed. Cardiovascular: Rate and Rhythm: Normal rate and regular rhythm. Heart sounds: Normal heart sounds. No murmur. No friction rub. No gallop. Pulmonary: Effort: Pulmonary effort is normal. No respiratory distress. Breath sounds: Normal breath sounds. No stridor. No wheezing or rales. Chest: Chest wall: No tenderness. Abdominal: General: Bowel sounds are normal. Palpations: Abdomen is soft. Tenderness: There is no right CVA tenderness, left CVA tenderness or rebound. Skin: General: Skin is warm and dry. Capillary Refill: Capillary refill takes less than 2 seconds. Neurological: Mental Status: He is alert and oriented to person, place, and time. Psychiatric: Mood and Affect: Mood normal. Assessment/Plan Diarrhea, unspecified type (primary encounter diagnosis) Comment: likely IBS, will give bentyl, get some labs and imaging and refer to GI for further eval and tx Plan: COMP. METABOLIC PANEL (97521), dicyclomine (BENTYL) 10 mg capsule, CONSULT/REFERRAL GASTROENTEROLOGY Exposure to SARS-associated coronavirus Comment: Plan: COVID-19 (PCR MOLECULAR TESTING) - Quarantine until your COVID results are back Criteria met - Covid testing - pending. This test can take 2-3 days to be resulted. While the test is pending...Please socially isolate your self - do not go out to stores or out in public. We will contact you once we have the results. If you are negative - continue with symptomatic treatment. (see below) Patients who have positive results will be contacted by the health department to enforce quarantine measures and for additional community contact tracing. The Infection Control Department will also undertake evaluation of exposures in our healthcare facility. If symptoms worsen - please call your Primary Care Doctor - do not go into the clinic. Call first. Generalized abdominal pain Comment: will work up to determine etiology Plan: CBC WITH DIFF, COMP. METABOLIC PANEL (40929), URINALYSIS, URINE CULTURE, FECES CULTURE, dicyclomine (BENTYL) 10 mg capsule, CONSULT/REFERRAL GASTROENTEROLOGY, CT ABDOMEN WO CONTRAST, CANCELED: CT ABDOMEN WO CONTRAST If worse, go to the ER. Essential hypertension Comment: continue current therapies and care with PCP Plan: Watch blood pressure: check at least twice weekly. Low salt Low caffeine diet Low alcohol Avoid tobacco products. Heart Healthy Exercise: total of 150 minutes of cardio: walking,swimming, hiking, biking every week. Heart healthy diet: low fat/carb/sugar diet; increase lean meat-chicken, turkey, fish; increase vegetables/fruits ( still be careful because elevated sugar level) ER--> worsening condition; cp, shortness of breath, dizziness, syncope, palpitations, n/v, diaphoresis. Plan of care, desired health behaviors, goals, and medication discussed with patient. Education resources provided and reviewed with AVS. Patient/guardian/family verbalized understanding & agrees to plan of care. This visit did not involve counseling and coordination that comprised more than 50% of the visit time. If applicable, the [facility] database was accessed to review any controlled substance prescription claims data. The [employer] prescription claims data in [place] was reviewed to assess patient compliance with the medication treatment plan. Itzel Brandon MA - 05/14/2020 11:20 AM CDT Zeus Leone is a 54 year old male Chief Complaint Patient presents with Diarrhea Started a little over a month ago. Everytime pt eats anything he has to go to the bathroom almost immediantly or with in 20 minutes, sometimes it is diarrhea sometimes its regular. Pt is having lots of bloating and gas and today he had cramping. Every morning it seems he has to get up and make a runfor the bathroom. STOMACH ACHE cramping Vitals: 05/14/20 1137 05/14/20 1138 BP: (!) 197/105 (!) 173/94 Pulse: 72 Resp: 20 Temp: 36.7 C (98.1 F) SpO2: 96% Weight: 260 lb (117.9 kg) Height: 5' 11" (1.803 m) [facility]/pharmacy #[id number] [place] [id number] All Vitals taken, allergies and all medications reviewed, fall risk assessed. Pain level 0. Did not swab for covid. Itzel Nicole MA 05/14/2020 11:39 AM documented in this encounter Plan of Treatment Date Type Specialty Care Team Description 05/14/2020 Hospital Encounter Radiology Oj Newton FNP Arrived [address] [phone] 05/23/2020 Office Visit Family Medicine Anaya Newton FNP [address] [phone] Name Type Priority Associated Diagnoses Date/Ti me COMP. METABOLIC PANEL LAB Routine Generalized abdomin al 05/14/2020 12:36 PM (87220) pain CDT Diarrhea, unspecified type URINALYSIS LAB Routine Generalized abdominal 2019 12:37 PM pain CDT URINE CULTURE LAB Routine Generalized abdominal 05/14 12:37 PM pain CDT Name Type Priority Associated Diagnoses Order S stefany COVID-19 (PCR MOLECULAR LAB Routine Exposure to Orde red: 05/14/2020 TESTING) SARS-associated coronavirus FECES CULTURE LAB Routine Generalized abdominal Expec joey: 05/14/2020, pain Expires: 2020 CT ABDOMEN WO CONTRAST IMAGING STAT Generalized abdomi nal Expected: 05/14/2020, pain Expires: 2020 Health Maintenance Due Date Last Done Comments [...] of this encounter Implants Implanted Type Area Upholstery Department Supervisor Device Shelf Model / Serial Identifier Expiration / Lot Date Lens, Konstantin #[id number] - [id number] LENS Right: Konstantin 09/15/2021 [id number] / Implanted: Qty: 1 on 11/16/2018 by Jose Alejandro Santana MD at [facility] 2 [id number] / N/A documented as of this encounter Procedures Procedure Name Priority Date/Time Associated Diagnosis Comme nts CBC WITH DIFF Routine 05/14/2020 12:36 PM Generalized abdomina l Results for this CDT pain procedure are i n the results section. documented in this encounter Results CBC WITH DIFF (05/14/2020 12:36 PM CDT) Pathologist Sig nature WBC 7.14 4.20 - 10.70 [facility] 10*3/L [facility] RBC 5.00 4.26 - 5.52 [facility] 10*6/L [facility] HGB 15.1 12.2 - 16.4 g/dL [facility] HCT 44.3 38.4 - 49.3 % [facility] MCV 88.6 81.7 - 95.6 fL [facility] MCH 30.2 26.1 - 32.7 pg [facility] MCHC 34.1 31.2 - 35.0 g/dL [facility] RDW-SD 39.4 38.5 - 51.6 fL [facility] RDW-CV 12.2 12.1 - 15.4 % [facility] PLT 145 (L) 150 - 328 [facility] 10*3/L [facility] MPV 10.2 9.8 - 13.0 fL [facility] NRBC/100 WBC 0.0 0.0 - 10.0 /100 [facility] WBCs [facility] NRBC x10^3 <0.01 10*3/L [facility] GRAN MAT (NEUT) % 60.5 % [facility] IMM GRAN % 0.40 % [facility] LYMPH % 29.0 % [facility] MONO % 5.7 % [facility] EOS % 3.8 % [facility] BASO % 0.6 % [facility] GRAN MAT x10^3(ANC) 4.32 1.99 - 6.95 [facility] 10*3/uL [facility] IMM GRAN x10^3 0.03 0.00 - 0.06 [facility] 10*3/uL [facility] LYMPH x10^3 2.07 1.09 - 3.23 [facility] 10*3/uL [facility] MONO x10^3 0.41 0.36 - 1.02 [facility] 10*3/uL [facility] EOS x10^3 0.27 0.06 - 0.53 [facility] 10*3/uL [facility] BASO x10^3 0.04 0.01 - 0.09 [facility] 10*3/uL [facility] Specimen Blood Performing Organization Address City/State/Zipcode Phone Number [facility] CLIA: [id number] [place] [address] documented in this encounter Visit Diagnoses Diagnosis Diarrhea, unspecified type - Primary Exposure to SARS-associated coronavirus Generalized abdominal pain Abdominal pain, generalized Essential hypertension Unspecified essential hypertension Generalized abdominal pain Abdominal pain, generalized documented in this encounter Additional Health Concerns Infection Onset Date Last Indicated Resolved Time COVID-19 Rule Out 05/14/2020 05/14/2020 documented as of this encounter documented as of this encounter
--- OUTSIDE RECORDS SUMMARY | 2020-06-14 12:54 | XMS REPORT | Summary of Care ---
:1965 Author Organization [facility] Address [address] [place] [id number] Care Team Providers Name Role Phone Osbaldo Hernandez MD Primary Care Provider Reason for Referral (Routine) Status Reason Specialty Diagnoses / Referred By Referred To Procedures Contact Contact New Request Ophthalmology Diagnoses Type 2 diabetes mellitus without complication, without long-term current use of insulin Anaya Newton, Procedures CONSULT/REFERRAL OPHTHALMOLOGY [employer] [address] [place] [address] [phone] (Routine) Status Reason Specialty Diagnoses / Referred By Referred To Procedures Contact Contact New Request Orthopedic Surgery Diagnoses Type 2 diabetes mellitus without complication, without long-term current use of insulin Anaya Newton, Procedures CONSULT/REFERRAL PODIATRY [employer] [address] [place] [id number] Reason for Visit Reason Comments Follow-up annual wellness Refill Request atorvastatin Encounter Details Date Type Department Care Team Description 05/23/2020 Office Visit [facility] Family Anaya Newton Wellne ss examination (Primary Dx); [facility] Essential hypertension; [address] [place] [address] Hyperlip idemia, unspecified hyperlipidemia type; [facility] Type 2 diabetes mellitus without complic ation, without long-term current use of insulin; [place] [id number] Uncontrolled hypertension [id number] [place], [place] [phone] Allergies No Known Allergiesdocumented as of this encounter (statuses as of 05/23/2020) Medications Medication Sig Dispensed Refills Start End Status Date Date ONETOUCH VERIO strip TEST BLOOD 100 Strip 0 01/26/20 Active SUGAR 2 18 TIMES A DAY sildenafil 100 mg Take 1 24 tablet 1 03/09/20 Ac tive tablet tablet by 18 mouth as needed for Other (prn, sexual activity). SITagliptin 100 mg Take 1 30 tablet 3 06/22/20 A ctive tabletIndications: Type tablet by 19 2 diabetes mellitus mouth daily. without complication, without long-term current use of insulin METFORMIN 1,000 mg TAKE 1 180 tablet 1 01/08/20 Active tabletIndications: Type TABLET BY 20 2 diabetes mellitus MOUTH TWICE without complication, A DAY WITH without long-term MEALS current use of insulin CARVEDILOL 12.5 mg TAKE 1 180 tablet 0 03/29/20 Active tabletIndications: TABLET BY 20 Essential hypertension MOUTH TWICE A DAY WITH MEALS dicyclomine (BENTYL) 10 Take 2 180 capsule 0 05/14/2005/20 Active mg capsuleIndications: capsules by 20 020 Generalized abdominal mouth 3 pain, Diarrhea, (three) unspecified type times daily for 30 days. acetaminophen-codeine 0 05/21/20 Active 300-30 mg tablet 20 clindamycin 150 mg 0 05/21/20 A ctive capsule 20 hydroCHLOROthiazide Take 1 90 capsule 0 05/23/20 Active 12.5 mg capsule by 20 021 capsuleIndications: mouth daily Essential hypertension, for 90 days. Uncontrolled hypertension lisinopriL 20 mg Take 1 180 tablet 0 05/23/20 Ac tive tabletIndications: tablet by 20 021 Uncontrolled mouth 2 hypertension (two) times daily for 90 days. atorvastatin 10 mg Take 1 30 tablet 0 05/23/20 A ctive tabletIndications: tablet by 20 Hyperlipidemia, mouth at unspecified bedtime. hyperlipidemia type LISINOPRIL 20 mg TAKE 1 60 tablet 0 05/15/20 Dis continued tabletIndications: TABLET BY 19 020 ( Reorder) Uncontrolled MOUTH TWICE hypertension A DAY ATORVASTATIN 10 mg TAKE 1 30 tablet 1 01/31/20 D iscontinued tablet TABLET BY 20 020 (Reorder) MOUTH EVERYDAY AT BEDTIME HYDROCHLOROTHIAZIDE TAKE 1 14 capsule 0 05/14/20 Discontinued 12.5 mg CAPSULE BY 20 020 (Dose capsuleIndications: MOUTH EVERY adjustment) Essential hypertension DAY hydroCHLOROthiazide 25 Take 1 90 tablet 0 05/23/20 Discontinued mg tabletIndications: tablet by 20 020 (Error) Essential hypertension mouth daily for 90 days. documented as of this encounter (statuses as of 05/23/2020) Active Problems Problem Noted Date Obesity (BMI 30-39.9) 11/16/2018 Uncontrolled hypertension 10/07/2017 Paresthesia of both feet 10/07/2017 Lower extremity edema 10/07/2017 Type 2 diabetes mellitus without complication 10/08/19 18 Other hyperlipidemia 10/07/2017 documented as of this encounter (statuses as of 05/23/2020) Resolved Problems Problem Noted Date Resolved Date Rash 10/07/2017 10/28/2017 Other specified hypothyroidism 10/07/2017 8 Chronic gout of multiple sites, unspecified cause 10/07/2017 10/28/2017 documented as of this encounter (statuses as of 05/23/2020) Social History Tobacco Use Types Packs/Day Years Used Date Never Smoker Smokeless Tobacco: Never Used Tobacco Cessation: Counseling Given: No Alcohol Use Drinks/Week oz/Week Comments Yes 2 per month Sex Assigned at Date Recorded Not on file COVID-19 Exposure Response Date Recorded In the last month, have you been in contact with No / Unsure 05/23/2020 2:05 PM [employer] someone who was confirmed or suspected to have Coronavirus / COVID-19? documented as of this encounter Last Filed Vital Signs Vital Sign Reading Time Taken Comments Blood Pressure 162/82 05/23/2020 2:04 PM [employer] Pulse 75 05/23/2020 2:04 PM [employer] Temperature 36.9 C (98.4 F) 05/23/2020 2:04 PM [employer] Respiratory Rate - - Oxygen Saturation 99% 05/23/2020 2:04 PM [employer] Inhaled Oxygen Concentration - - Weight 119.5 kg (263 lb 6.4 oz) 05/23/2020 2:04 PM [employer] Height 180.3 cm (5' 11") 05/23/2020 2:04 PM [employer] Body Mass Index 36.74 05/23/2020 2:04 PM [employer] documented in this encounter Patient Instructions Patient InstructionsAnaya Newton FNP - 05/23/2020 2:00 PM CST Patient Education Controlling High Blood Pressure High blood pressure (hypertension) is often called the silent killer. This is because many people who have it, dont know it. It can be very dangerous. High blood pressure can raise your risk of heart attack, stroke, heart disease, and heart failure. Controlling your blood pressure can decrease yourrisk of these problems. It's important to know the appropriate blood pressure range and remember to check your blood pressure regularly. Doing so can save your life. Blood pressure measurements are given as 2 numbers. Systolic blood pressure is the upper number. This is the pressure when the heart contracts. Diastolic blood pressure is the lower number. This is thepressure when the heart relaxes between beats. Blood pressure is categorized as normal, elevated, or stage 1 or stage 2 high blood pressure: Normal blood pressure is systolic of less than 120 and diastolic of less than 80 (120/80) Elevated blood pressure is systolic of 120 to 129 and diastolic less than 80 Stage 1 high blood pressure is systolic of 130 to 139 or diastolic between 80 to 89 Stage 2 high blood pressure is when systolic is 140 or higher or the diastolic is 90 or higher A heart-healthy lifestyle can help you control your blood pressure without medicines. Here are some things you can do to pursue a heart-healthy lifestyle: Choose heart-healthy foods Select low-salt, low-fat foods. Limit sodium intake to 2,400 mg per day or the amount suggested by your healthcare provider. Limit canned, dried, cured, packaged, and fast foods. These can contain a lot of salt. Eat 8 to 10 servings of fruits and vegetables every day. Choose lean meats, fish, or chicken. Eat whole-grain pasta, brown rice, and beans. Eat 2 to 3 servings of low-fat or fat-free dairy products. Ask your doctor about the DASH eating plan. This plan helps reduce blood pressure. When you go to a restaurant, ask that your meal be prepared with no added salt. Stay at a healthy weight Ask your healthcare provider how many calories to eat a day. Then stick to that number. Ask your healthcare provider what weight range is healthiest for you. If you are overweight, a weight loss of only 3% to 5% of your body weightcan help lower blood pressure. Generally, a good weight loss goal is to lose 10% of your body weight in a year. Limit snacks and sweets. Get regular exercise. Get up and get active Find activities you enjoy that can be done alone or with friends or family. Such activities mightinclude bicycling, dancing, walking, or jogging. Park farther away from building entrances to walk more. Use stairs instead of the elevator. When you can, walk or bike instead of driving. [place] leaves, garden, or do household repairs. Be active at a moderate to vigorous level of physical activity for at least 40 minutes for a minimum of 3 to 4 days a week. Manage stress Make time to relax and enjoy life. Find time to laugh. Communicate your concerns with your loved ones and your healthcare provider. Visit with family and friends, and keep up with hobbies. Limit alcohol and quit smoking Men should have no more than 2 drinks per day. Women should have no more than 1 drink per day. Talk with your healthcare provider about quitting smoking. Smoking significantly increases your risk for heart disease and stroke. Ask your healthcare provider about community smoking cessation programs and other options. Medicines If lifestyle changes arent enough, your healthcare provider may prescribe high blood pressure medicine. Take all medicines as prescribed. If you have any questions about your medicines, ask your healthcare provider before stopping or changing them. [employer] last reviewed this educational content on 12/17/201819992413-1869 [employer]. All rights reserved. This information is not intended as a substitute for professional medical care. Always follow your healthcare professional's instructions. Patient Education Understanding Fat and Cholesterol Too much cholesterol in your blood can lead to problems such as blocked arteries. This canlead toheart attack and stroke. One of the best ways to manage heart and blood vessel disease is to lower your blood cholesterol. Eating meals that are low in saturated fat and cholesterol helps reduce the level of cholesterol in your blood. Below are eating tips to help you do this. Eat less fat A healthy goal is to have less than 25% to 35% of your daily calories come from fat. Instead of fats, eat more fruits, whole grains, and vegetables. This also helps control your weight. It can even reduce your risk for some cancers. There are different kinds of fats in foods. Fats can be saturated, unsaturated, or trans fats. The best fats to choose are unsaturated fats. But fats are high in calories, so eat even unsaturated fats in small amounts. Limit saturated fats Saturated fats come from animals. They also come from certain plants such as coconut and palm. Eating too much saturated fat can raise your blood cholesterol levels. This can make your artery problems worse. Your goal is to eat less saturated fat. Below are some examples of foods that contain a lot ofsaturated fat: Fatty cuts of meat (may, ham, beef) Many pastries, cakes, cookies, and candies Cream, ice cream, sour cream, cheese, and butter, and foods made with them Sauces made with butter or cream Salad dressings with saturated fats Foods that contain palm or coconut oil Choose unsaturated fats Unsaturated fats are usually liquid at room temperature. They are better choices for your heart thansaturated fat. There are 2 types of unsaturated fats. Aim to replace saturated fats with these: Polyunsaturated fats. These are found in corn oil, safflower oil, sunflower oil, and other vegetable oils. Monounsaturated fats. These are found in olive oil, canola oil, and peanut oil. Some margarines and spreads are now made with these oils, too. Avocados are also high in monounsaturated fat. Of allfats, monounsaturated fats are the least harmful to your heart. Don't eat trans fats Like saturated fats, trans fats have been linked to heart disease. Even a small amount can harm yourhealth. Trans fats are found in liquid oils that have been changed to be solid at room temperature. Margarine, which is often made from vegetable oil, is one example. Vegetable shortening is another. Trans fats are often found in packaged goods. Check ingredients for the words hydrogenated or partially hydrogenated. They mean the foods contain trans fat. What about triglycerides? Triglycerides are a type of fat in your blood. Like cholesterol, high levels of triglycerides can lead to blocked arteries. High triglyceride levels can be reduced 20% to 50% by limiting added sugarsin your diet, eating healthier fats, getting more physical activity, and losing weight if you are overweight. You may also be advised to avoid or limit alcohol. Reading food labels Most foods now have Nutrition Facts labels that give you the details about what youre eating. Reading food labels helps you make healthy choices. Look for the words highlighted below. Serving Size.This is the amount of food in 1 serving. If you eat larger portions, be sure to count more of everything: fat, calories, and cholesterol. Total Fat. Tells you how many grams (g) of fat are in 1 serving. Calories from Fat.This tells you the total number of calories from fat in 1 serving.There are9 calories per gram of fat.Look for foods with the fewest calories from fat. Saturated Fat.Tells you how many grams (g) of saturated fat are in 1 serving. Trans Fat. Tells how many grams (g) of trans fat are in 1 serving. Cholesterol.Tells you how many milligrams (mg) of cholesterol are in 1 serving. [employer] haroon reviewed this educational content on 12/18/201919997637-2191 [employer]. All rights reserved. This information is not intended as a substitute for professional medical care. Always follow your healthcare professional's instructions. Patient Education Controlling Your Cholesterol Cholesterol is a waxy substance. It travels in your blood through the blood vessels. When you have high cholesterol, it can build up along the de jesus of the blood vessels. This makes the vessels narrower and decreases blood flow. You are then at greater risk of having a heart attack or a stroke. Good and bad cholesterol Lipids are fats, and blood is mostly water. Fat and water don't mix. So our bodies need lipoproteins(lipids inside a protein shell) to carry the lipids. The protein shell carries its lipids through the bloodstream. There are two main kinds of lipoproteins: LDL (low-density lipoprotein) is known as "bad cholesterol." It mainly carries cholesterol. It delivers this cholesterol to body cells. Excess LDL cholesterol will build up in artery de jesus. This increases your riskfor heart disease and stroke. HDL (high-density lipoprotein) is known as "good cholesterol." This protein shell collects excesscholesterol that LDLs have left behind on blood vessel de jesus. That's why high levels of HDL cholesterol can decrease your risk of heart disease and stroke. Controlling cholesterol levels Total cholesterol includes LDL and HDL cholesterol, as well as other fats in the bloodstream. If your total cholesterol is high, follow the steps below to help lower your total cholesterol level: Eat less unhealthy fat Cut back on saturated fats and trans fats (also called hydrogenated) by selecting lean cuts of meat, low-fat dairy, and using oils instead of solid fats. Limit baked goods, processed meats, and fried foods. A diet thats high in these fats increases your bad cholesterol. It's not enough to just cut back on foods containing cholesterol. Eat about two, 3.5 ounce servings of non-fried fish such as salmon, link, sardines or mackerelper week . Most fish contain omega-3 fatty acids. These help lower total blood cholesterol. [place]-3 fatty acids lowers triglyceride levels, another form of fat in the blood. If you are or thinking of becoming or are , talk with your healthcare provider for advice about the best fish choices and how much to eat. Eat more whole grains and soluble fiber (such as oat bran). These lower overall cholesterol. Be active Choose an activity you enjoy. Walking, swimming, and riding a bike are some good ways to be active. Start at a level where you feel comfortable. Increase your time and pace a little each week. Work up to 30 to 40 minutes of moderate to high intensity physical activity at least 3 to 4 days per week. Remember, some activity is better than none. If you haven't been exercising regularly, start slowly. Check with your healthcare provider to make sure the exercise plan is right for you. Quit smoking Quitting smoking can improve your lipid levels. It also lowers your risk for heart disease and stroke. Manage your weight If you are overweight or obese, your healthcare provider will work with you to lose weight and loweryour BMI (body mass index) to a normal or near-normal level. Making diet changes and increasing physical activity can help. Take medicine as directed Many people need medicine to get their LDL levels to a safe level. Medicine to lower cholesterol levels is effective and safe. Taking medicine is not a substitute for exercise or watching your diet! Your healthcare provider can tell you whether you might benefit from a cholesterol-lowering medicine. [employer] last reviewed this educational content on 12/17/201819995816-2062 [employer]. All rights reserved. This information is not intended as a substitute for professional medical care. Always follow your healthcare professional's instructions. Patient Education Prevention Guidelines, Men Ages 50 to 64 Screening tests and vaccines are an important part of managing your health. A screening test is doneto find diseases in people who don't have any symptoms. The goal is to find a disease early so lifestyle changes and checkups can reduce the risk of disease. Or the goal may be to detect it early to treat it most effectively. Screening tests are not used to diagnose a disease. But they are used to seeif more testing is needed. Health counseling is important, too. Below are guidelines for these, for men ages 50 to 64. Keep in mind that screening recommendations vary among expert groups. Talk with your healthcare provider about which tests are best for you and to make sure youre up-to-date on what you need. Screening Who needs it How often Unhealthy alcohol use All men in this age group At routine exams Blood pressure All men in this age group Yearly checkup if your blood pressure is normal Normal blood pressure is less than 120/80 mm Hg If your blood pressure reading is higher than normal, follow the advice of your healthcare provider Colorectal cancer All men at average risk in this age group Multiple tests are available and are used at different times. Possible tests include: Flexible sigmoidoscopy every 5 years, or Colonoscopy every [address] colonography (virtual colonoscopy) every 5 years, or Yearly fecal occult blood test, or Yearly fecal immunochemical test every year, or Stool DNA test, every 3 years If you choose a test other than a colonoscopy and have an abnormal test result, you will need to follow-up with a colonoscopy. Screening recommendations advice vary varies among expert groups. Talk with your healthcare provider about which tests are best for you. Some people should be screened using a different schedule because of their personal or family healthhistory. Talk with your healthcare provider about your health history. Depression All men in this age group At routine exams Type 2 diabetes or prediabetes All men beginning at age 45 and men without symptoms at any age who are overweight or obese and have 1 or more other risk factors for diabetes At least every 3 years (yearly if your blood sugar has already begun to rise) Type 2 diabetes All men with prediabetes Every year Hepatitis C Men at increased risk for infection; 1 time for those born between 1945 and 1965 At routine exams; talk with your healthcare provider. High cholesterol or triglycerides All men in this age group At least every 5 years; talk with your healthcare provider about your risk HIV All males up to age 64 and men at increased risk. At least once up to age 64 at routine exams; talk with your healthcare provider if you are at risk Lung cancer Men between the ages of 55 to 74 who in fairly good health and are at higher risk for lung cancer Currently smoke or who have quit within past 15 years 30-pack year smoking history a Eligibility criteria and age limit (possibly up to age 80) may vary across major organizations Yearly lung cancer screening with a low-dose CT scan (LDCT); talk with your healthcare provider Obesity All men in this age group At yearly routine exams BMI (body mass index) All men in this age group Every year, to help find out if you are at a healthyweight for your height Prostate cancer Starting at age 50, talk with your healthcare provider about risks and benefits of testing with digital rectal exam (ANNA) and prostate- specific antigen (PSA) screening At routine exams if you decide to be tested. Syphilis Men at increased risk for infection At routine exams; talk with your healthcare provider Tuberculosis Men at increased risk for infection Talk with your healthcare provider Vision All men in this age group Talk with your healthcare provider Vaccine Who needs it How often Chickenpox (varicella) All men in this age group who have no record of this infection or vaccine 2 doses; second dose should be given at least 4 weeks after the first dose Hepatitis A Men at increased risk for infection 2 or 3 doses (depending on the vaccine) given at least 6 months apart; talk with your healthcare provider Hepatitis B Men at increased risk for infection 2 or 3 doses (depending on the vaccine) second dose should be given 1 month after the first dose; if a third dose , it should be given at least 2 months after the second dose and at least 4 months after the first dose; talk with your healthcare provider Haemophilus influenzaeType B (HIB) Men at increased risk for infection 1 or 3 doses; talk with your healthcare provider Influenza (flu) All men in this age group Once a year Measles, mumps, rubella (MMR) Men in this age group born in 1957 or later who have no record of these infections or vaccines 1 or 2 doses; talk with your healthcare provider Meningococcal ACWY (MenACWY) Men at increased risk for infection 1 or 2 doses depending on your case. Then a booster every 5 years if you are still at risk. Talk with your healthcare provider. Meningococcal B (MenB) Men at increased risk for infection 2 or 3 doses, depending on the vaccine and your case; talk with your healthcare provider Pneumococcal conjugate vaccine (PCV13)and pneumococcal polysaccharidevaccine(PPSV23) Men at increased risk for infection PCV13: 1 dose ages 19 to 65 (protects against 13 types of pneumococcal bacteria) PPSV23: 1 to2 doses through age 64, (protects against 23 types of pneumococcal bacteria) Tetanus/diphtheria/pertussis (Td/Tdap) booster All men in this age group Td every 10 years, or a 1-time dose of Tdap instead of a Td booster after age 18, then Td every 10 years Zoster (Shingles) All men in this age group 2 vaccines are available: Recombinant zoster vaccine (RZV; Shigrix) is recommended as the preferred shingles vaccine. It isgiven in a series of 2 doses. The 2nd dose is given 2 to 6 months after the first. This is given even if you've had shingles before or had a previous Zoster live vaccine (ZVL; Zostavax) Zoster live vaccine (ZVL; Zostavax) may be given to healthy adults over age 60. It's given in onedose Counseling Who needs it How often Diet and exercise Men who are overweight or obese When diagnosed, and then at routine exams Sexually transmitted infection prevention Men at increased risk for infection At routine exams; talkwith your healthcare provider Use of daily aspirin Men ages 50 years and up in this age group who are at high risk for cardiovascular health problems and not at increased risk for bleeding as identified by their healthcare providery At routine exams; talk with your healthcare provider Use of statins Men between the ages of 40 and 75 years who have ; men An LDL-C level of more than 70 mg/dL but less than 190 mg/dL, no diabetes and borderline to high level of risk An LDL-C level of 190 mg/dL or greater A diagnosis of diabetes and LDL-C level of greater than 70mg/dL At routine exams, or more often as directed by your healthcare provider. Statin dosages may vary based on your overall health, risk factors, and other health conditions such as diabetes. Talk with your healthcare provider about your risk . Use of tobacco and the health effects it can cause All men in this age group Every exam [facility] last reviewed this educational content on 11/16/201819997228-2093 [employer]. All rights reserved. This information is not intended as a substitute for professional medical care. Always follow your healthcare professional's instructions. 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 Annual wellness visit: Describes diet: Am- peanut butter crackers, and water Lunch-senegalese food, and tea Dinner- grilled chicken, rice- generally healthy Water: at least 64 oz daily. Exercise: stair climbing at work, not routine exercise Other beverages: cokes x2 daily STD screening consent?: No Last colonoscopy: declined Candidate for Hep C screening based on year?: No Candidate for shingles vaccine?: No Candidate for pneumococcal vaccine?: diabetic, stable- NO Candidate for influenza vaccine?: Yes- declines. Candidate for Tdap?: current Domestic/relationship violence screen is negative Depression and anxiety- denies He has a hx of hypertension, but not controlled. Used to be on more medication than he is now, for some reason he has not gotten lisinopril filled for sometime as well as his cholesterol medications. He is a diabetic and compliant with his therapy. Allergies Zeus has No Known Allergies. Medications Outpatient Medications Prior to Visit Medication Sig Dispense Refill acetaminophen-codeine 300-30 mg tablet clindamycin 150 mg capsule dicyclomine (BENTYL) 10 mg capsule Take 2 capsules by mouth 3 (three) times daily for 30 days. 180 capsule 0 HYDROCHLOROTHIAZIDE 12.5 mg capsule TAKE 1 CAPSULE BY MOUTH EVERY DAY 14 capsule 0 CARVEDILOL 12.5 mg tablet TAKE 1 TABLET BY MOUTH TWICE A DAY WITH MEALS 180 tablet 0 ATORVASTATIN 10 mg tablet TAKE 1 [...] Dose Route Frequency Provider Last Rate Last Admin vxbbhxnt-fpfrtrsep-vgfvgkbnxnbiy (MAXITROL) 3.5 mg/g-10,000 unit/g-0.1 % ophthalmic ointment PRN Jose Alejandro Ignacio MD 0.5 Inch at 11/16/18 1026 sodium chloride (NS) injection Jose Alejandro Coleman MD 30 mL at 11/16/18 1026 water for irrigation irrigation solution Jose Alejandro Coleman MD 30 mL at 11/16/18 1026 Histories [...] 11/16/2018 Surgeon: Jose Alejandro Ignacio MD; [place] [facility] [place]AC[place],INSERT LENS SHOULDER ARTHROPLASTY R Social [...] file Gets together: Not on file Attends mandaeism service: Not on file Active member of [...] home with and 2 kids Works at [employer] Family History Problem Relation Age of Onset No Significant Medical Problems Mother Hypercholesterolemia Father Hypertension Father Diabetes Maternal Grandmother Diabetes Maternal Grandfather Diabetes Paternal Grandmother Diabetes Paternal Grandfather Review of Systems Constitutional: Negative. Negative for chills, fatigue and fever. HENT: Negative. Eyes: Negative. Respiratory: Negative. Negative for cough, chest tightness, shortness of breath and wheezing. Cardiovascular: Negative. Negative for chest pain, palpitations and leg swelling. Gastrointestinal: Negative. Genitourinary: Negative. Musculoskeletal: Negative. Skin: Negative. Neurological: Negative. Negative for syncope, weakness, light-headedness and headaches. Psychiatric/Behavioral: Negative. Endocrine: Endocrine negative Vital Signs BP (!) 162/82 (BP Location: Right arm, Patient Position: Sitting, BP CUFF SIZE: Adult Large) | Pulse 75 | Temp 36.9 C (98.4 F) (Oral) | Ht 5' 11" (1.803 m) | Wt 263 lb 6.4 oz (119.5 kg) | [id number]% | BMI 36.74 kg/m Physical Exam Vitals signs and nursing note reviewed. Constitutional: General: He is not in acute distress. Appearance: He is well-developed. Neck: Vascular: No carotid bruit or JVD. Cardiovascular: Rate and Rhythm: Normal rate and regular rhythm. Heart sounds: Normal heart sounds. No murmur. No friction rub. No gallop. Pulmonary: Effort: Pulmonary effort is normal. No respiratory distress. Breath sounds: Normal breath sounds. No stridor. No wheezing or rales. Chest: Chest wall: No tenderness. Abdominal: General: Bowel sounds are normal. Palpations: Abdomen is soft. Feet: Right foot: Skin integrity: Skin integrity normal. Left foot: Skin integrity: Skin integrity normal. Comments: Sensory exam of the foot is normal, tested with the monofilament. Good pulses, no lesions or ulcers, good peripheral pulses. Skin: General: Skin is warm and dry. Capillary Refill: Capillary refill takes less than 2 seconds. Neurological: Mental Status: He is alert and oriented to person, place, and time. Psychiatric: Mood and Affect: Mood normal. Assessment/Plan Wellness examination (primary encounter diagnosis) Comment: physical exam unremarkable Plan: GLYCOSYLATED HEMOGLOBIN (A1C), CBC WITH DIFF, COMP. METABOLIC PANEL (13319), THYROID STIMULATING HORMONE, PROSTATIC SPECIFIC ANTIGEN SCREEN, LIPID PANEL (84207)(TOTAL CHOLESTEROL, TRIGLYCERIDES, HDL) Essential hypertension Comment: uncontrolled, will restart lisinopril Plan: GLYCOSYLATED HEMOGLOBIN (A1C), CBC WITH DIFF, COMP. METABOLIC PANEL (58163), THYROID STIMULATING HORMONE, LIPID PANEL (72371)(TOTAL CHOLESTEROL, TRIGLYCERIDES, HDL), hydroCHLOROthiazide 12.5 mg capsule, DISCONTINUED: hydroCHLOROthiazide 25 mg tablet Watch blood pressure: check at least twice [...] of breath, dizziness, syncope, palpitations, n/v, diaphoresis. Hyperlipidemia, unspecified hyperlipidemia type Comment: will restart atorvastatin Plan: GLYCOSYLATED HEMOGLOBIN (A1C), CBC WITH DIFF, COMP. METABOLIC PANEL (41028), THYROID STIMULATING HORMONE, LIPID PANEL (79559)(TOTAL CHOLESTEROL, TRIGLYCERIDES, HDL), atorvastatin 10 mg tablet Counseled on healthy lifestyle habits in great detail including: -Portion control -My plate model with fruits/vegetables on half of your plate -Monitoring caloric intake via my fitness pal rosangela: goal 2458-4468 xiao daily for women, [id number] calfor men. -Recommend avoiding sodas -Recommend avoiding fast food -Recommend increasing water: min 64 oz daily -Recommend Heart healthy diet: low fat/carb/sugar diet; increase lean meat- chicken, turkey, fish; increase vegetables/fruits ( still be careful because elevated sugar level) -Recommend Heart Healthy Exercise: total of 150 minutes of cardio: walking,swimming, hiking, biking every week. Type 2 diabetes mellitus without complication, without long-term current use of insulin Comment: will get labs including A1C Plan: GLYCOSYLATED HEMOGLOBIN (A1C), CBC WITH DIFF, COMP. METABOLIC PANEL (63550), THYROID STIMULATING HORMONE, LIPID PANEL (85741)(TOTAL CHOLESTEROL, TRIGLYCERIDES, HDL) PREVENTATIVE MEASURE: Declined colonoscopy Declined flu vaccine- but will consider, thus will get from his employer Tetanus up to date, within 5 years, given by his employer [employer] Differed referral to podiatry for annual foot exam Differed referral to optometry for annual eye exam Plan of care, desired health behaviors, goals, and medication discussed with patient. Education resources provided and reviewed with AVS. Patient/guardian/family verbalized understanding & agrees to plan of care. This visit did not involve counseling and coordination that comprised more than 50% of the visit time. If applicable, the [place] ANODIC OPERATOR database was accessed to review any controlled substance prescription claims data. The [place] prescription claims data in [facility] was reviewed to assess patient compliance with the medication treatment plan. 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 METABOLIC PANEL LAB Routine Wellness e xamination Ordered: 05/23/2020 (23763) Essential hypert ension Hyperlipidemia, unspecified hyperlipidemia type Type 2 diabetes mellitus without complication, without long-term current use of insulin THYROID STIMULATING LAB Routine Wellness exa mination Expected: HORMONE Essential hypert ension 05/23/2020, Expires: Hyperlipidemia, 05/23/2021 unspecified hyperlipidemia type Type 2 diabetes mellitus without complication, without long-term current use of insulin PROSTATIC SPECIFIC LAB Routine Wellness examination E xpected: ANTIGEN SCREEN 05/23/2020, E xpires: 05/23/2021 LIPID PANEL (21606)(TOTAL LAB Routine Wellne ss examination Ordered: 05/23/2020 CHOLESTEROL, Essential hypert ension TRIGLYCERIDES, HDL) Hyperlipidemia, unspecified hyperlipidemia type Type 2 diabetes mellitus without complication, without long-term current use of insulin Health Maintenance Due Date Last Done Comments FOOT EXAM 1981 DTaP,Tdap,and Td Vaccines 1982 (1 - Tdap) COLON CANCER SCREENING 2013 ANNUAL FIT/FOBT COLON CANCER SCREENING FIT 2013 DNA EVERY 3 YEARS COLON CANCER SCREENING 2013 SIGMOIDOSCOPY EVERY 5 YEARS COLONOSCOPY 2013 Colorectal Cancer Screening 2013 Zoster Recombinant Vaccine 2013 (SHINGRIX) (1 of 2) HgA1C 12/22/2019 06/22/2019, 03/09/2018, 10/07/2017 EYE EXAM 06/21/2020 06/21/2019 LDL-C 06/22/2020 06/22/2019, 03/09/2018, 10/07/2017 URINE MICROALBUMIN 06/22/2020 06/22/2019 INFLUENZA VACCINE (#1) 2021 Postponed from 03/19/2020 (Refu sed) CREATININE (SERUM) 05/14/2021 05/14/2020, 06/22/2019, 11/11/2018, Additional history exists Depression Screening 05/23/2021 05/23/2020 HEPATITIS C (HCV) SCREEN Completed 10/07/2017 PNEUMOCOCCAL 0-64 YEARS Aged Out No longe r eligible COMBINED SERIES based on patient 's age to complete this topic documented as of this encounter Implants Implanted Type Area Director Business Travel Device Shelf Model / Serial Identifier Expiration / Lot Date Lens, Konstantin #[id number] - [id number] LENS Right: Konstantin 09/15/2021 [id number] / Implanted: Qty: 1 on 11/16/2018 by Jose Alejandro Santana MD at [facility] 2 [id number] / N/A documented as of this encounter Results Not on filedocumented in this encounter Visit Diagnoses Diagnosis Wellness examination - Primary Essential hypertension Unspecified essential hypertension Hyperlipidemia, unspecified hyperlipidem ia type Type 2 diabetes mellitus without complic ation, without long-term current use of insulin Uncontrolled hypertension Unspecified essential hypertension documented in this encounter Additional Health Concerns Infection Onset Date Last Indicated Resolved Time COVID-19 Rule Out 05/14/2020 05/14/2020 documented as of this encounter documented as of this encounter
--- OUTSIDE RECORDS SUMMARY | 2020-06-14 12:54 | XMS REPORT | Summary of Care ---
:1965 Author Organization [facility] Address [address] [place] [id number] Care Team Providers Name Role Phone Osbaldo Hernandez MD Primary Care Provider Reason for Referral MRI/CAT Scan (STAT) Status Reason Specialty Diagnoses / Referred By Referred To Procedures Contact Contact Closed Diagnostic Diagnoses Generalized abdominal pain Anaya Newton, Radiology Procedures CT ABDOMEN WO CONTRAST CT ABDOMEN WO CONTRAST CATALOGUE MAKER [id number] [place] [address] Reason for Visit Auth/Cert Status Reason Specialty Diagnoses / Procedures Referred By Bernie ontpeggy Referred To Contact Phlebotomy Diagnoses Generalized abdominal pain Adc Pob Lab Draw Procedures FECES CULTURE URINE CULTURE UA CMP CBC Professional Office Building [address] [facility] [place] [address], [address] [place] [address] Phone: Fax: Encounter Details Date Type Department Care Team Description 05/14/2020 Hospital Encounter [facility] Bernie Newton, CATALOGUE MAKER Arrived [place] [facility] [address] Tomography [id number] [place] [phone] Allergies No Known Allergiesdocumented as of [...] 05/23/2020 Office Visit Family Medicine Anaya Newton, CATALOGUE MAKER [address] [place] [phone] Health Maintenance Due Date Last Done [...] of this encounter Implants Implanted Type Area Workforce Management Manager Device Shelf Model / Serial Identifier Expiration / Lot Date Lens, Konstantin #[id number] - [id number] LENS Right: Konstantin 09/15/2021 [id number] / Implanted: Qty: 1 on 11/16/2018 by Jose Alejandro Santana MD at [facility] 3 [id number] / N/A documented as of this encounter Procedures Procedure Name Priority Date/Time Associated Diagnosis Comme nts CT ABDOMEN WO STAT 05/14/2020 2:34 PM Generalized Results for this CONTRAST CDT abdominal pain procedure are in the results section. documented in this encounter Results CT ABDOMEN WO CONTRAST (05/14/2020 2:34 PM CDT) Specimen Narrative Performed At CT Abdomen without contrast. PACS/VR/DOSE CLINICAL HISTORY: Abdominal pain. TECHNIQUE: Multidetector helical CT acquisition was ob tained from the lung bases to the level iliac crests without oral and IV co ntrast. The images were reviewed in lung, bone, and soft ti ssue windows. FINDINGS: Absence of intravenous contrast limits cory luation of the solid organs. Evaluation of the bowel is also limited by lac k of oral contrast. Lower lungs: Clear. Triple-vessel marrero ry atherosclerosis is noted. Liver, Gallbladder and Spleen: Liver is 20 cm in lengt h and showed diffuse hepatic steatosis. Spleen is also enlarged, measuring 15 x 7.2 cm. Probable very small gallstone without any acute c hanges. Focal calcifications are seen in the soft tissues oyanna cent to the anterior inferior surface of the spleen and in the left upper a bdomen near the inner surface of the spleen and splenic artery/aorta adrenal gland region, from unknown etiology. Peritoneum: No free air or free fluid. No lymphadenopathy. Pancreas and Adrenals: Unremarkable pa ncreas and adrenal glands. Kidneys and Ureters: 5 mm nonobstructing stone in the interpolar right kidney and 4 mm stone in the lower pole collecting system of the left kidney. No hydronephrosis or hydroureter .. Vessels: Mild diffuse atherosclerosis of the aorta. No aortic aneurysm. Retroperitoneum: No abnormal fluid or ly mphadenopathy. Bowel: Portions of normal appendix visua lized. Visualized large bowel showed mild diverticular disease without any acute changes. Bones: Subcentimeter sclerotic lesion in left side of T10 vertebral body is of unknown etiology but could be an inci dental bone island. Mild degenerative changes are seen in the low er thoracic and upper lumbar spines. Prominent Schmorl's nodes are se en in the L2 and lower thoracic vertebral endplates, likely secondary to remote axial loading trauma. Disc osteophyte complex noted protruding into the spinal canal at L4-L5 and L5-S1. Soft tissues: Unremarkable. CONCLUSION: 1. No acute intra-abdominal pathology de tected. 2. Focal ill-defined increased density i n the left anterior abdominal subcutaneous tissue above the level of u mbilicus could be scar tissue or secondary to recent trauma. Please corre late with history. 3. Hepatosplenomegaly with hepatic steat osis. 4. Bilateral kidney stones without hydro nephrosis or hydroureter. 5. Probable small gallstone without any acute changes of cholecystitis. Procedure Note [facility], Radiant Results Inft User - 2019 2:[address] Abdomen without contrast. CLINICAL HISTORY: Abdominal pain. TECHNIQUE: Multidetector helical CT acqu isition was obtained from the lung bases to the level iliac crests without oral and IV contrast. The images were reviewed in lung, bone, and soft ti ssue windows. FINDINGS: Absence of intravenous contra st limits evaluation of the solid organs. Evaluation of the bowel is also limited by lack of oral contrast. Lower lungs: Clear. Triple-vessel marrero ry atherosclerosis is noted. Liver, Gallbladder and Spleen: Liver is 20 cm in length and showed diffuse hepatic steatosis. Spleen is also enlarg ed, measuring 15 x 7.2 cm. Probable very small gallstone without any acute c hanges. Focal calcifications are seen in the sof t tissues adjacent to the anterior inferior surface of the spleen and in th e left upper abdomen near the inner surface of the spleen and splenic artery /aorta adrenal gland region, from unknown etiology. Peritoneum: No free air or free fluid. No lymphadenopathy. Pancreas and Adrenals: Unremarkable loyola creas and adrenal glands. Kidneys and Ureters: 5 mm nonobstructing stone in the interpolar right kidney and 4 mm stone in the lower pole collecting system of the left kidney. No hydronephrosis or hydroureter .. Vessels: Mild diffuse atherosclerosis of the aorta. No aortic aneurysm. Retroperitoneum: No abnormal fluid or ly mphadenopathy. Bowel: Portions of normal appendix visua lized. Visualized large bowel showed mild diverticular disease without any acute changes. Bones: Subcentimeter sclerotic lesion in left side of T10 vertebral body is of unknown etiology but could be an inci dental bone island. Mild degenerative changes are seen in the low er thoracic and upper lumbar spines. Prominent Schmorl's nodes are se en in the L2 and lower thoracic vertebral endplates, likely secondary to remote axial loading trauma. Disc osteophyte complex noted protruding into the spinal canal at L4-L5 and L5-S1. Soft tissues: Unremarkable. CONCLUSION: 1. No acute intra-abdominal pathology de tected. 2. Focal ill-defined increased density i n the left anterior abdominal subcutaneous tissue above the level of u mbilicus could be scar tissue or secondary to recent trauma. Please corre late with history. 3. Hepatosplenomegaly with hepatic steat osis. 4. Bilateral kidney stones without hydro nephrosis or hydroureter. 5. Probable small gallstone without any acute changes of cholecystitis. Performing Organization Address City/State/Zipcode Phone Number PACS/VR/DOSE documented in this encounter Visit Diagnoses Diagnosis Generalized abdominal pain Abdominal pain, generalized documented in this encounter Additional Health Concerns Infection Onset Date Last Indicated Resolved Time COVID-19 Rule Out 05/14/2020 05/14/2020 documented as of this encounter documented as of this encounter
--- OUTSIDE RECORDS SUMMARY | 2020-06-14 12:55 | XMS REPORT | Summary of Care ---
:1965 Author Organization [facility] Address [address] [place] [id number] Care Team Providers Name Role Phone Osbaldo Hernandez MD Primary Care Provider Reason for Referral (Routine) Status Reason Specialty Diagnoses / Referred By Referred To Procedures Contact Contact New Request Ophthalmology Diagnoses Type 2 diabetes mellitus without complication, without long-term current use of insulin Anaya Newton, Procedures CONSULT/REFERRAL OPHTHALMOLOGY EMT BASIC [address] [place] [address] [phone] (Routine) Status Reason Specialty Diagnoses / Referred By Referred To Procedures Contact Contact New Request Orthopedic Surgery Diagnoses Type 2 diabetes mellitus without complication, without long-term current use of insulin Anaya Newton, Procedures CONSULT/REFERRAL PODIATRY EMT BASIC [address] [place] [phone] Reason for Visit Reason Comments Follow-up annual wellness Refill Request atorvastatin Encounter Details Date Type Department Care Team Description 05/23/2020 Office Visit [facility] Family Anaya Newton Wellne ss examination (Primary Dx); [facility] Essential hypertension; [address] [place] [address] Hyperlip idemia, unspecified hyperlipidemia type; 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 documented as of this encounter Last Filed Vital Signs Vital Sign Reading Time Taken Comments Blood Pressure 162/82 05/23/2020 2:04 PM REVENUE TAX SPECIALIST Pulse 75 05/23/2020 2:04 PM REVENUE TAX SPECIALIST Temperature 36.9 C (98.4 F) 05/23/2020 2:04 PM REVENUE TAX SPECIALIST Respiratory Rate - - Oxygen Saturation 99% 05/23/2020 2:04 PM REVENUE TAX SPECIALIST Inhaled Oxygen Concentration - - Weight 119.5 kg (263 lb 6.4 oz) 05/23/2020 2:04 PM REVENUE TAX SPECIALIST Height 180.3 cm (5' 11") 05/23/2020 2:04 PM REVENUE TAX SPECIALIST Body Mass Index 36.74 05/23/2020 2:04 PM REVENUE TAX SPECIALIST documented in this encounter Patient Instructions Patient [...] can, walk or bike instead of driving. [place] leaves, garden, or do household repairs. Be [...] healthcare provider before stopping or changing them. [employer] last reviewed this educational content on 12/17/201819995486-6182 [employer]. All rights reserved. This information is not [...] (mg) of cholesterol are in 1 serving. [employer] haroon reviewed this educational content on 12/18/201919992982-5360 [employer]. All rights reserved. This information is not [...] acids. These help lower total blood cholesterol. [place]-3 fatty acids lowers triglyceride levels, another form [...] you might benefit from a cholesterol-lowering medicine. [employer] last reviewed this educational content on 12/17/201819990243-7033 [employer]. All rights reserved. This information is not [...] men in this age group Every exam [employer] last reviewed this educational content on 11/16/201819999020-5394 [employer]. All rights reserved. This information is not intended as a substitute for professional medical care. Always follow your healthcare professional's instructions. NUE TAX SPECIALIST documented in this encounter Progress Notes Anaya Newton FNP - 05/23/2020 2:00 PM CST Cc: Chief Complaint Patient presents with Follow-up annual wellness Refill Request atorvastatin Zeus Leone is a 54 year old male. Annual wellness visit: Describes diet: Am- peanut butter crackers, and water Lunch-ukrainian food, and tea Dinner- grilled chicken, rice- [...] Route Frequency Provider Last Rate Last Admin rnjjlboa-zfywfiyjo-lggitweoakusm (MAXITROL) 3.5 mg/g-10,000 unit/g-0.1 % ophthalmic ointment [...] 11/16/2018 Surgeon: Jose Alejandro Ignacio MD; [place] [facility] [place]AC[place],INSERT LENS SHOULDER ARTHROPLASTY R [...] file Gets together: Not on file Attends baptist service: Not on file Active member of [...] home with and 2 kids Works at [employer] Family History Problem Relation Age of Onset [...] 263 lb 6.4 oz (119.5 kg) | XrE698% | BMI 36.74 kg/m Physical Exam Vitals [...] (A1C), CBC WITH DIFF, COMP. METABOLIC PANEL (71518), THYROID STIMULATING HORMONE, PROSTATIC SPECIFIC ANTIGEN SCREEN, LIPID PANEL (48804)(TOTAL CHOLESTEROL, TRIGLYCERIDES, HDL) Essential hypertension Comment: uncontrolled, will restart lisinopril Plan: GLYCOSYLATED HEMOGLOBIN (A1C), CBC WITH DIFF, COMP. METABOLIC PANEL (74808), THYROID STIMULATING HORMONE, LIPID PANEL (01420)(TOTAL CHOLESTEROL, TRIGLYCERIDES, HDL), hydroCHLOROthiazide 12.5 mg capsule, [...] (A1C), CBC WITH DIFF, COMP. METABOLIC PANEL (98834), THYROID STIMULATING HORMONE, LIPID PANEL (00680)(TOTAL CHOLESTEROL, TRIGLYCERIDES, HDL), atorvastatin 10 mg tablet Counseled on healthy lifestyle habits in great detail including: -Portion control -My plate model with fruits/vegetables on half of your plate -Monitoring caloric intake via my fitness pal rosangela: goal [phone] xiao daily for women, [phone] calfor men. -Recommend avoiding sodas -Recommend avoiding [...] (A1C), CBC WITH DIFF, COMP. METABOLIC PANEL (10722), THYROID STIMULATING HORMONE, LIPID PANEL (81573)(TOTAL CHOLESTEROL, TRIGLYCERIDES, HDL) PREVENTATIVE MEASURE: Declined colonoscopy [...] of the visit time. If applicable, the [place] IMPLEMENTATION ANALYST database was accessed to review any controlled substance prescription claims data. The [facility] prescription claims data in [facility] was reviewed to assess patient compliance with the medication treatment plan. NUE TAX SPECIALIST documented in this encounter Plan of Treatment [...] LAB Routine Wellness e xamination Ordered: 05/23/2020 (98732) Essential hypert ension Hyperlipidemia, unspecified hyperlipidemia type [...] SCREEN 05/23/2020, E xpires: 05/23/2021 LIPID PANEL (08199)(TOTAL LAB Routine Wellne ss examination Ordered: 05/23/2020 [...] of this encounter Implants Implanted Type Area Doctor Naturopathic Device Shelf Model / Serial Identifier Expiration / Lot Date Lens, Konstantin #[id number] - [id number] LENS Right: Konstantin 09/15/2021 [id number] / Implanted: Qty: 1 on 11/16/2018 by Jose Alejandro Santana MD at [facility] Eye 2 [id number] / N/A documented as of this encounter [...]
--- OUTSIDE RECORDS SUMMARY | 2020-06-14 12:55 | XMS REPORT | Summary of Care ---
:1965 Author Organization [facility] Address [address] [place] [address] Care Team Providers Name Role Phone Osbaldo Hernandez MD Primary Care Provider Reason for Visit Reason Comments Refill Request Encounter Details Date Type Department Care Team Description 06/06/2020 Refill [facility] Family Medicine Osbaldo Hernandez MD Refill Request - [address] [place] [address] [place] [address] [place] [address] [phone] Allergies No Known Allergiesdocumented as of this encounter (statuses as of 06/06/2020) Medications Medication Sig Dispensed Refills Start End [...] hypertension MOUTH TWICE A DAY WITH MEALS acetaminophen-codeine 0 05/21/20 Active 300-30 mg tablet [...] Hyperlipidemia, mouth at unspecified bedtime. hyperlipidemia type dicyclomine (BENTYL) 10 Take 2 180 capsule 0 06/06/20 Active mg capsuleIndications: capsules by 20 Generalized abdominal mouth 3 pain, Diarrhea, (three) unspecified type times daily. dicyclomine (BENTYL) 10 Take 2 180 capsule 0 05/14/2005/19 Discontinued mg capsuleIndications: capsules by 20 020 (Reorder) Generalized abdominal mouth 3 pain, Diarrhea, (three) unspecified type times daily for 30 days. documented as of this encounter (statuses as of 06/06/2020) Active Problems Problem Noted Date Obesity (BMI 30-39.9) 11/16/2018 Uncontrolled hypertension 10/07/2017 Paresthesia of both feet 10/07/2017 Lower extremity edema 10/07/2017 Type 2 diabetes mellitus without complication 10/08/19 18 Other hyperlipidemia 10/07/2017 documented as of this encounter (statuses as of 06/06/2020) Resolved Problems Problem Noted Date Resolved Date Rash 10/07/2017 10/28/2017 Other specified hypothyroidism 10/07/2017 8 Chronic gout of multiple sites, unspecified cause 10/07/2017 10/28/2017 documented as of this encounter (statuses as of 06/06/2020) Social History Tobacco Use Types Packs/Day Years Used Date Never Smoker Smokeless Tobacco: Never Used Alcohol Use Drinks/Week oz/Week Comments Yes 2 per month Sex Assigned at Date Recorded Not on file COVID-19 Exposure Response Date Recorded In the last month, have you been in contact with No / Unsure 05/23/2020 2:05 PM 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 someone who was confirmed or suspected to [...] of this encounter Implants Implanted Type Area Ager Tender Device Shelf Model / Serial Identifier Expiration / Lot Date Lens, Konstantin #[id number] - [id number] LENS Right: Konstantin 09/15/2021 [id number] / Implanted: Qty: 1 on 11/16/2018 by Jose Alejandro Santana MD at [facility] Eye 6 [id number] / N/A documented as of this encounter Results Not on filedocumented in this encounter Visit Diagnoses Diagnosis Generalized abdominal pain Abdominal pain, generalized Diarrhea, unspecified type documented in this encounter Insurance Payer Benefit Plan / Group Subscriber ID Effective Dates Phone Address Type AETNA AETNA CHOICE POS II [id number] 2018-Present POS documented as of this encounter
[2020-06-14 13:46] LABS: Basophils % 0.3 % (0-1.3); Hematocrit 43.5 % (39.6-49.0); Lymphocytes % 22.3 % (15.3-44.8); MPV 9.5 fL (7.6-11.3); RBC Red Blood Cell Count 5.02 M/uL (4.33-5.43)
--- NOTE | 2020-06-14 13:47 | RAD REPORT ---
EXAM DESCRIPTION: Lisa Single View06/14/2020 1:41 pm CLINICAL HISTORY: Cough COMPARISON: none FINDINGS: The lungs appear clear of acute infiltrate. The heart is normal size IMPRESSION: No acute abnormalities displayed
[2020-06-14] MEDS ORDERED: NA CHLORIDE 0.9% 1,000 ML ONE (13:54)
[2020-06-14] MEDS ORDERED: ONDANSETRON 4 MG/2 ML VIAL ONE (13:54)
[2020-06-14 14:12] LABS: Albumin 3.6 g/dL (3.4-5.0); Bilirubin Direct 0.2 mg/dL (0-0.2); Bilirubin Total 0.7 mg/dL (0.2-1.0); Potassium 3.7 mmol/L (3.5-5.1); Protein, Total 7.8 g/dL (6.4-8.2)
--- NOTE | 2020-06-14 15:11 | RAD REPORT ---
EXAM DESCRIPTION: CT - Stone Protocol - 06/14/2020 2:53 pm CLINICAL HISTORY: Abdominal pain. COMPARISON: 2011 TECHNIQUE: Computed axial tomography of the abdomen pelvis was obtained without oral or IV contrast. Lack of IV and oral contrast limits evaluation of solid organs, bowel, and vessels. Coronal reformat joey images were obtained and reviewed. All CT scans are performed using dose optimization technique as appropriate and may include automated exposure control or mA/KV adjustment according to patient size. FINDINGS: Mild to moderate bilateral ground-glass opacities within the lungs. Small bilateral renal calculi. No hydronephrosis. . An ureteral calculus is not noted. A bladder calc ulus is not present. Fatty liver The spleen measures 15 centimeters Pancreas and right adrenal appear grossly normal. Postsurgical changes involve left adrenal gland There is no evidence of diverticulitis. The appendix appears normal. Small inguinal hernias contain fat IMPRESSION: Small nonobstructing renal calculi Mild to moderate ground-glass opacities within the lungs may indicate Covid pneumonia
--- NOTE | 2020-06-14 15:17 | EDPHYS ---
Physician Documentation [facility] Name: Zeus Leone Age: 55 yrs Sex: Male : 1965 Arrival Date: 06/14/2020 Time: 12:51 Bed 5 Private MD: ED Physician Florencia Barroso HPI: 06/14 13:24 This 55 yrs old Male presents to ER via Ambulatory with complaints of Cough, kb Vomiting/Diarrhea. 13:24 The patient presents to the emergency department with nausea, vomiting, diarrhea. kb Onset: The symptoms/episode began/occurred 3 week(s) ago. Possible causes: unknown. The symptoms are aggravated by food , The symptoms are alleviated by nothing. Associated signs and symptoms: Pertinent positives: diarrhea, nausea, vomiting, cough, congestion, Pertinent negatives: fever. Severity of symptoms: At their worst the symptoms were moderate in the emergency department the symptoms are unchanged. The patient has not experienced similar symptoms in the past. The patient has not recently seen a physician. Pt reports nausea after eating and diarrhea for 3 weeks. Reports cough and congestion for 10 days. Denies fevre.. Historical: - Allergies: 13:04 NKA; iw - Home Meds: 13:06 metformin 1,000 mg oral tab 2 times per day [Active]; carvedilol 12.5 mg oral tab 1 tab iw 2 times per day [Active]; hydrochlorothiazide 12.5 mg Oral tab 1 tab 2 times per day [Active]; atorvastatin 10 mg oral tab 1 tab once daily [Active]; Dicyclomine Oral [Active]; - PMHx: 13:04 Diabetes - NIDDM; Hypertension; iw - PSHx: 13:04 Carpal Tunnel Repair; adrenal gland removal; right shoulder; iw - Immunization history:: Adult Immunizations not up to date. - Social history:: Smoking status: Patient denies any tobacco usage or history of. ROS: 13:23 Constitutional: Negative for fever, chills, and weight loss, Cardiovascular: Negative kb for chest pain, palpitations, and edema, Back: Negative for injury and pain, MS/Extremity: Negative for injury and deformity, Skin: Negative for injury, rash, and discoloration, Neuro: Negative for headache, weakness, numbness, tingling, and seizure. 13:23 ENT: Positive for rhinorrhea, sinus congestion. 13:23 Respiratory: Positive for cough, Negative for dyspnea on exertion, hemoptysis, orthopnea, pleurisy, shortness of breath, sputum production, wheezing. 13:23 Abdomen/GI: Positive for nausea, vomiting, and diarrhea, Negative for abdominal pain. Exam: 13:24 Constitutional: This is a well developed, well nourished patient who is awake, alert, kb and in no acute distress. Head/Face: Normocephalic, atraumatic. Chest/axilla: Normal chest wall appearance and motion. Nontender with no deformity. No lesions are appreciated. Cardiovascular: Regular rate and rhythm with a normal S1 and S2. No gallops, murmurs, or rubs. Normal PMI, no JVD. No pulse deficits. Respiratory: Lungs have equal breath sounds bilaterally, clear to auscultation and percussion. No rales, rhonchi or wheezes noted. No increased work of breathing, no retractions or nasal flaring. Abdomen/GI: Soft, non-tender, with normal bowel sounds. No distension or tympany. No guarding or rebound. No evidence of tenderness throughout. Skin: Warm, dry with normal turgor. Normal color with no rashes, no lesions, and no evidence of cellulitis. MS/ Extremity: Pulses equal, no cyanosis. Neurovascular intact. Full, normal range of motion. Neuro: Awake and alert, GCS 15, oriented to person, place, time, and situation. Cranial nerves II-XII grossly intact. Motor strength 5/5 in all extremities. Sensory grossly intact. Cerebellar exam normal. Normal gait. Vital Signs: 13:00 BP 107 / 95; Pulse 86; Resp 18 S; Temp 98.6; Pulse Ox 98% on R/A; Weight 109.77 kg; iw Height 5 ft. 11 in. (180.34 cm); 15:38 BP 115 / 76; Pulse 74; Resp 18; Temp 99.2; Pulse Ox 99% on R/A; ll1 13:00 Body Mass Index 33.75 (109.77 kg, 180.34 cm) iw MDM: 13:14 Patient medically screened. kb 13:23 Data reviewed: vital signs, nurses notes. Data interpreted: Pulse oximetry: on room air kb is 98 %. Interpretation: normal. 15:14 Counseling: I had a detailed discussion with the patient and/or guardian regarding: the kb historical points, exam findings, and any diagnostic results supporting the discharge/admit diagnosis, lab results, radiology results, the need for outpatient follow up, a family practitioner, to return to the emergency department if symptoms worsen or persist or if there are any questions or concerns that arise at home. ED course: Pt educated on diagnostic results and probability of COVID, but results from swab needed to confirm. Verbal understanding received. . 06/14 13:18 Order name: Basic Metabolic Panel; Complete Time: 14:13 kb 06/14 13:18 Order name: CBC with Diff; Complete Time: 13:48 kb 06/14 13:18 Order name: Hepatic Function; Complete Time: 14:13 kb 06/14 13:18 Order name: Lipase; Complete Time: 14:13 kb 06/14 13:18 Order name: COVID-19; Complete Time: 12:36 kb 06/14 14:20 Order name: Flu; Complete Time: 15:03 kb 06/14 13:18 Order name: IV Saline Lock; Complete Time: 13:26 kb 06/14 13:18 Order name: Labs collected and sent; Complete Time: 13:26 kb 06/14 13:18 Order name: Chest Single View XRAY; Complete Time: 13:48 kb 06/14 14:36 Order name: CT Stone Protocol; Complete Time: 15:13 kb Administered Medications: 13:46 Drug: NS 0.9% 1000 ml Route: IV; Rate: 1000 ml; Site: left antecubital; ll1 15:39 Follow up: Response: No adverse reaction; RASS: Alert and Calm (0); IV Status: ll1 Completed infusion; IV Intake: 1000ml 13:46 Drug: Zofran (Ondansetron) 4 mg Route: IVP; Site: left antecubital; ll1 15:37 Follow up: Response: No adverse reaction ll1 Disposition: 18:37 Co-signature as Attending Physician, Florencia Barroso MD. ma2 Disposition: 06/14/20 15:16 Discharged to Home. Impression: Acute upper respiratory infection, unspecified, Diarrhea, unspecified, Viral pneumonia, unspecified. - Condition is Stable. - Discharge Instructions: Viral Respiratory Infection, Ivjk-Ay-Wjzm, COVID-19. - Prescriptions for Zofran 4 mg Oral Tablet - take 1 tablet by ORAL route every 6 hours As needed; 20 tablet. - Medication Reconciliation Form, Thank You Letter, Antibiotic Education, Prescription Opioid Use form. - Follow up: Emergency Department; When: As needed; Reason: Worsening of condition. Follow up: Private Physician; When: 2 - 3 days; Reason: Recheck today's complaints, Continuance of care, Re-evaluation by your physician. Addendum: 06/17/2020 12:37 Addendum: Notified of positive COVID result, feels better, told to quarantine. . r n Signatures: Dispatcher [employer] EDMS Deloris Henderson, HEMATOLOGY TECHNOLOGIST-C HEMATOLOGY TECHNOLOGIST-Ckb Ester Gonzales, RN RN Camron Del Castillo MD MD rn Alzahri, Mohammad, MD MD ma2 Zenaida Cates RN RN ll1 Corrections: (The following items were deleted from the chart) 06/14 15:39 15:16 06/14/2020 15:16 Discharged to Home. Impression: Acute upper respiratory ll1 infection, unspecified; Diarrhea, unspecified; Viral pneumonia, unspecified. Condition is Stable. Forms are Medication Reconciliation Form, Thank You Letter, Antibiotic Education, Prescription Opioid Use. Follow up: Emergency Department; When: As needed; Reason: Worsening of condition. Follow up: Private Physician; When: 2 - 3 days; Reason: Recheck today's complaints, Continuance of care, Re-evaluation by your physician. kb
--- NOTE | 2020-06-14 15:17 | ER ---
Nurse's Notes [facility] Name: Zeus Leone Age: 55 yrs Sex: Male : 1965 Arrival Date: 06/14/2020 Time: 12:51 Bed 5 Private MD: Diagnosis: Acute upper respiratory infection, unspecified;Diarrhea, unspecified;Viral pneumonia, unspecified Presentation: 06/14 13:00 Chief complaint: Patient states: persistent cough, nasal drainage, diarrhea , got iw dicyclomine for diarrhea, was prescribed by Dr. David BAUER on May 22, is still having diarrhea, is weak, no appetite, lost 20 pounds in past month, no fever, +chills , has not been tested for COVID . Cough started 10 days ago. Coronavirus screen: chills, cough unrelated to allergies, diarrhea, runny nose, Client presents with at least one sign or symptom that may indicate coronavirus-19. Standard/surgical mask placed on the client. Provider contacted for isolation considerations. Ebola Screen: Patient negative for fever greater than or equal to 101.5 degrees Fahrenheit, and additional compatible Ebola Virus Disease symptoms Patient denies exposure to infectious person. Patient denies travel to an Ebola-affected area in the 21 days before illness onset. No symptoms or risks identified at this time. Initial Sepsis Screen: Does the patient meet any 2 criteria? No. Patient's initial sepsis screen is negative. Does the patient have a suspected source of infection? No. Patient's initial sepsis screen is negative. Risk Assessment: Do you want to hurt yourself or someone else? Patient reports no desire to harm self or others. Onset of symptoms was May 22, 2020. 13:00 Method Of Arrival: Ambulatory iw 13:00 Acuity: YAIR 3 iw Historical: - Allergies: 13:04 NKA; iw - Home Meds: 13:06 metformin 1,000 mg oral tab 2 times per day [Active]; carvedilol 12.5 mg oral tab 1 tab iw 2 times per day [Active]; hydrochlorothiazide 12.5 mg Oral tab 1 tab 2 times per day [Active]; atorvastatin 10 mg oral tab 1 tab once daily [Active]; Dicyclomine Oral [Active]; - PMHx: 13:04 Diabetes - NIDDM; Hypertension; iw - PSHx: 13:04 Carpal Tunnel Repair; adrenal gland removal; right shoulder; iw - Immunization history:: Adult Immunizations not up to date. - Social history:: Smoking status: Patient denies any tobacco usage or history of. Screenin:49 Abuse screen: Denies threats or abuse. Nutritional screening: No deficits noted. ll1 Tuberculosis screening: No symptoms or risk factors identified. Fall Risk IV access (20 points). Gait- Weak (10 pts.). Total Thomas Fall Scale indicates Low Risk Score (25-44 pts). Fall prevention measures have been instituted. Side Rails Up X 2 Placed close to Nursing Station Frequent Obs/Assesments occuring Family Present and informed to notify staff if they need to leave bedside As available Patient and Family Educated on Fall Prevention Program and strategies. Assessment: 13:47 General: Appears in no apparent distress. Behavior is calm, cooperative, appropriate ll1 for age. Pain: Complains of pain in abdomen Quality of pain is described as crampy, Pain began 3 weeks. Neuro: No deficits noted. Cardiovascular: No deficits noted. Respiratory: Reports cough that is productive, Airway is patent Trachea midline Respiratory effort is even, unlabored, Respiratory pattern is regular, symmetrical, Sputum is thick, Breath sounds are clear bilaterally. Onset: The symptoms/episode began/occurred 3 weeks ago. GI: Abdomen is round Bowel sounds present X 4 quads. Abd is soft and non tender X 4 quads. Reports cramping, diarrhea, nausea. : No deficits noted. Musculoskeletal: Circulation, motion, and sensation intact. Capillary refill < 3 seconds, Reports body aches and fatigue. 14:45 Reassessment: Patient and/or family updated on plan of care and expected duration. Pain ll1 level reassessed. 15:38 Reassessment: Patient and/or family updated on plan of care and expected duration. Pain ll1 level reassessed. Patient is alert, oriented x 3, equal unlabored respirations, skin warm/dry/pink. Patient states feeling better. Vital Signs: 13:00 BP 107 / 95; Pulse 86; Resp 18 S; Temp 98.6; Pulse Ox 98% on R/A; Weight 109.77 kg; iw Height 5 ft. 11 in. (180.34 cm); 15:38 BP 115 / 76; Pulse 74; Resp 18; Temp 99.2; Pulse Ox 99% on R/A; ll1 13:00 Body Mass Index 33.75 (109.77 kg, 180.34 cm) ED Course: 12:51 Patient arrived in ED. as 13:02 Deloris Henderson [facility]-C [facility]. kb 13:02 Florencia Barroso MD is Attending Physician. kb 13:04 Triage completed. iw 13:05 Arm band placed on. iw 13:15 Zenaida Cates, RN is Primary Nurse. ll1 13:30 Inserted saline lock: 20 gauge in left antecubital area, using aseptic technique. Blood ll1 collected. 13:41 Chest Single View XRAY In Process Unspecified. EDMS 13:49 Patient has correct armband on for positive identification. Bed in low position. Call ll1 light in reach. Side rails up X 1. Adult w/ patient. 14:53 CT Stone Protocol In Process Unspecified. EDMS 15:38 No provider procedures requiring assistance completed. IV discontinued, intact, ll1 bleeding controlled, No redness/swelling at site. Pressure dressing applied. Administered Medications: 13:46 Drug: NS 0.9% 1000 ml Route: IV; Rate: 1000 ml; Site: left antecubital; ll1 15:39 Follow up: Response: No adverse reaction; RASS: Alert and Calm (0); IV Status: ll1 Completed infusion; IV Intake: 1000ml 13:46 Drug: Zofran (Ondansetron) 4 mg Route: IVP; Site: left antecubital; ll1 15:37 Follow up: Response: No adverse reaction ll1 Intake: 15:39 IV: 1000ml; Total: 1000ml. ll1 Outcome: 15:16 Discharge ordered by . kb 15:39 Discharged to home ambulatory. ll1 15:39 Condition: stable 15:39 Discharge instructions given to patient, Instructed on discharge instructions, follow up and referral plans. medication usage, Demonstrated understanding of instructions, follow-up care, medications, Prescriptions given X 1. 15:39 Patient left the ED. ll1 Signatures: Dispatcher [employer] EDMS Deloris Henderson FNP-C FNP-Ckb Martinez, Amelia as Ester Gonzales RN RN iw Zenaida Cates, RN RN ll1
[2020-06-14 16:18] VITALS: BP 115/76; TEMP 99.2; O2SAT 99
== END 2020-06-14 15:39 | disposition home or self-care (01) ==
LOC: ER 12:48
DX: U07.1 COVID-19 (principal); J12.89 Other viral pneumonia; R19.7 Diarrhea, unspecified; I10 Essential (primary) hypertension; E11.9 Type 2 diabetes mellitus without complications
CPT/HCPCS: 96361; 85025; 80048; 36415; 80076; 83690; 87804 ×2; 76377; 74176; 71045; 96374; 99284; U0002; J7030; J2405

== ENCOUNTER 2021-12-08 15:05 | Observation (INO) | payer OTHER ==
--- OUTSIDE RECORDS SUMMARY | 2021-12-08 15:12 | XMS REPORT | Continuity of Care Document ---
:[address] [facility] t Address [address] [place] [address] Care Team Providers Name Role Phone David MAGUIRE Primary Care Physician David MAGUIRE Attending Clinician Lamar MCKENZIEP Attending Clinician Jung Desai DO Attending Clinician Juan Miguel MAGUIRE, A Attending Clinician Christy BAUER, A Attending Clinician Doctor Unassigned, Name Attending Clinician Unavailable ANENE Attending Clinician Unavailable Pob, Lab Main Attending Clinician Unavailable Provider, Urgent Care Attending Clinician Unavailable Payers Payer Name Policy Type Policy Number Effective Date Expiration Date S ource Problems Condition Condition Condition Status Onset Resolution Last Treating Co mments Source Name Details Category Date Date Treatment Clinician Date Obesity Obesity Disease Active Univers (BMI (BMI 5-01 ity of 30-39.9) 30-39.9) 00:00: [place] 00 [facility] Branch Type 2 Type 2 Disease Active Univers diabetes diabetes 3- ity of mellitus mellitus 00:00: [place] without without 00 Medical complicati complicati Br anch on on Other Other Disease Active Univers hyperlipid hyperlipid 3-22 it y of emia emia 00:00: [place] 00 Medical Branch Uncontroll Uncontroll [facility] hypertens[place] Paresthesi Paresthesi Disease Active U nivers a of both a of both - ity of feet feet 00:00: [place] [facility] Branch Lower Lower Disease Active Univers extremity extremity 3- ity of edema edema 00:00: [place] [address] Medical Branch Allergies, Adverse Reactions, Alerts Allergy Allergy Status Severity Reaction(s) Onset Inactive Treating Comm ents Source Name Type Date Date Clinician NO KNOWN Drug Active Univers ALLERGIE Class ity of S [facility] Social History Social Habit Start Date Stop Date Quantity Comments Source Exposure to Not sure [facility] SARS-CoV-2 [place] [facility] (event) Branch History SDOH University o f Alcohol Frequency [place] M ed[facility] Branch History SDOH University o f Alcohol Std [place] [facility] Drinks Branch History SDOH University o f Alcohol Binge [place] [facility] Alcohol intake 2020-05-23 2020-05-23 Current drinker Unive rsity of 00:00:00 00:00:00 of alcohol [place] [facility] (finding) Branch Tobacco use and 2017-10-07 2017-10-07 Never used Universit y of exposure 00:00:00 00:00:00 [facility] Alcohol Comment 2017-10-07 2017-10-07 2 per month Universi ty of 00:00:00 00:00:00 [facility] Sex [birth year] Universit y of 00:00:00 00:00:00 [facility] Smoking Status Start Date Stop Date Source Never smoker [facility] Medications Ordered Filled Start Stop Current Ordering Indication Dosage Frequency Signature Comments Components Source Medication Medication Date Date Medication? Clinician (SIG) Name Name atormarthadong 2020-07 Yes [id number] 10mg Take 1 Univers n 10 mg 0-26 tablet by ity of tablet 00:00: mouth at [place] [address] bedtime. Medical MUST BE Branch SEEN FOR FURTHER REFILLS atorvastati 2020-07 Yes [id number] 10mg Take 1 Univers n 10 mg 0-26 tablet by ity of tablet 00:00: mouth at [place] [address] bedtime. Medical MUST BE Branch SEEN FOR FURTHER REFILLS atorvastati 2020-07 Yes [id number] 10mg Take 1 Univers n 10 mg 0-26 tablet by ity of tablet 00:00: mouth at [place] [address] bedtime. Medical MUST BE Branch SEEN FOR FURTHER REFILLS atorvastati 2020-07 Yes [id number] 10mg Take 1 Univers n 10 mg 0-26 tablet by ity of tablet 00:00: mouth at [place] [address] bedtime. Medical MUST BE Branch SEEN FOR FURTHER REFILLS atorvastati Yes [id number] 10mg Take 1 Univers n 10 mg 9-02 tablet by ity of tablet 00:00: mouth at [place] [address] bedtime. Medical Branch atorvastati 0 Yes [id number] 10mg Take 1 Univers n 10 mg 9-02 tablet by ity of tablet 00:00: mouth at [place] 00 bedtime. Medical Branch atorvastati 0 Yes [id number] 10mg Take 1 Univers n 10 mg 9-02 tablet by ity of tablet 00:00: mouth at [place] [address] bedtime. Medical Branch atorvastati Yes [id number] 10mg Take 1 Univers n 10 mg 9-02 tablet by ity of tablet 00:00: mouth at [place] [address] bedtime. Medical Branch atorvastati Yes [id number] 10mg Take 1 Univers n 10 mg 9-02 tablet by ity of tablet 00:00: mouth at [place] [address] bedtime. Medical Branch atorvastati 2020- No [id number] 10mg Take 1 Univers n 10 mg 9-02 10-26 tablet by ity of tablet 00:00: 00:00 mouth at [place] 00 :00 bedtime. Medical Branch LISINOPRIL 0 Yes [id number] TAKE 1 U nivers 20 mg 8-27 TABLET BY ity of tablet 00:00: MOUTH [place] 00 TWICE A Medical DAY Branch LISINOPRIL 2020-0 Yes [id number] TAKE 1 U nivers 20 mg 8-27 TABLET BY ity of tablet 00:00: MOUTH [place] 00 TWICE A Medical DAY Branch LISINOPRIL 2020-0 Yes [id number] TAKE 1 U nivers 20 mg 8-27 TABLET BY ity of tablet 00:00: MOUTH [place] 00 TWICE A Medical DAY Branch LISINOPRIL 2020-0 Yes [id number] TAKE 1 U nivers 20 mg 8-27 TABLET BY ity of tablet 00:00: MOUTH [place] 00 TWICE A Medical DAY Branch LISINOPRIL 2020-0 Yes [id number] TAKE 1 U nivers 20 mg 8-27 TABLET BY ity of tablet 00:00: MOUTH [place] 00 TWICE A Medical DAY Branch LISINOPRIL 202-0 Yes [id number] TAKE 1 U nivers 20 mg 8-27 TABLET BY ity of tablet 00:00: MOUTH TWICE A Medical DAY Branch LISINOPRIL 2020-0 Yes [id number] TAKE 1 U nivers 20 mg 8-27 TABLET BY ity of tablet 00:00: MOUTH TWICE A Medical DAY Branch LISINOPRIL 2020-0 Yes [id number] TAKE 1 U nivers 20 mg 8-27 TABLET BY ity of tablet 00:00: MOUTH TWICE A Medical DAY Branch LISINOPRIL 2020-0 Yes [id number] TAKE 1 U nivers 20 mg 8-27 TABLET BY ity of tablet 00:00: MOUTH TWICE A Medical DAY Branch LISINOPRIL 2020-0 Yes [id number] TAKE 1 U nivers 20 mg 8-27 TABLET BY ity of tablet 00:00: MOUTH TWICE A Medical DAY Branch LISINOPRIL 2020-0 Yes [id number] TAKE 1 U nivers 20 mg 8-27 TABLET BY ity of tablet 00:00: MOUTH TWICE A Medical DAY Branch ATORVASTATI 2020-0 Yes [id number] TAKE 1 Univers N 10 mg 8-02 TABLET BY ity of tablet 00:00: MOUTH 00 EVERYDAY Medical AT BEDTIME Branch LISINOPRIL 2020-0 Yes [id number] TAKE 1 U nivers 20 mg 8-02 TABLET BY ity of tablet 00:00: MOUTH TWICE A Medical DAY Branch ATORVASTATI 2020-0 Yes [id number] TAKE 1 Univers N 10 mg 8-02 TABLET BY ity of tablet 00:00: MOUTH 00 EVERYDAY Medical AT BEDTIME Branch ATORVASTATI 2020-0 Yes [id number] TAKE 1 Univers N 10 mg 8-02 TABLET BY ity of tablet 00:00: MOUTH 00 EVERYDAY Medical AT BEDTIME Branch ATORVASTATI 2020-0 2021- No [id number] TAKE 1 Univers N 10 mg 8-02 08-31 TABLET BY ity of tablet 00:00: 00:00 [facility] [place] 00 :00 EVERYDAY Medical AT BEDTIME Branch LISINOPRIL 202-0 1- No [id number] TAKE 1 Univers 20 mg 8-02 08-27 TABLET BY ity of tablet 00:00: 00:00 MOUTH [place] 00 :00 TWICE A Medical DAY Branch LISINOPRIL 2021-0 2021- No [id number] TAKE 1 Univers 20 mg 8-02 08-27 TABLET BY ity of tablet 00:00: 00:00 MOUTH [place] 00 :00 TWICE A Medical DAY Branch ATORVASTATI 2021-0 Yes [id number] TAKE 1 Univers N 10 mg 7-05 TABLET BY ity of tablet 00:00: MOUTH [place] 00 EVERYDAY Medical AT BEDTIME Branch LISINOPRIL 2021-0 Yes [id number] TAKE 1 U nivers 20 mg 7-05 TABLET BY ity of tablet 00:00: MOUTH [place] 00 TWICE A Medical DAY Branch ATORVASTATI 2020-0 2021- No [id number] TAKE 1 Univers N 10 mg 7-05 08-02 TABLET BY ity of tablet 00:00: 00:00 MOUTH [place] 00 :00 EVERYDAY Medical AT BEDTIME Branch LISINOPRIL 202-0 2021- No [id number] TAKE 1 Univers 20 mg 7-05 08-02 TABLET BY ity of tablet 00:00: 00:00 MOUTH [place] 00 :00 TWICE A Medical DAY Branch METFORMIN 2021-0 Yes [id number] TAKE 1 U nivers 1,000 mg 7-02 TABLET BY ity of tablet 00:00: MOUTH [place] 00 TWICE A Medical DAY WITH Branch MEALS METFORMIN 2021-0 Yes [id number] TAKE 1 U nivers 1,000 mg 7-02 TABLET BY ity of tablet 00:00: MOUTH [place] 00 TWICE A Medical DAY WITH Branch MEALS METFORMIN 2021-0 Yes [id number] TAKE 1 U nivers 1,000 mg 7-02 TABLET BY ity of tablet 00:00: MOUTH [place] 00 TWICE A Medical DAY WITH Branch MEALS METFORMIN 2021-0 Yes [id number] TAKE 1 U nivers 1,000 mg 7-02 TABLET BY ity of tablet 00:00: MOUTH [place] 00 TWICE A Medical DAY WITH Branch MEALS METFORMIN 2021-0 Yes [id number] TAKE 1 U nivers 1,000 mg 7-02 TABLET BY ity of tablet 00:00: MOUTH [place] 00 TWICE A Medical DAY WITH Branch MEALS METFORMIN 2021-0 Yes [id number] TAKE 1 U nivers 1,000 mg 7-02 TABLET BY ity of tablet 00:00: MOUTH [place] 00 TWICE A Medical DAY WITH Branch MEALS METFORMIN 2021-0 Yes [id number] TAKE 1 U nivers 1,000 mg 7-02 TABLET BY ity of tablet 00:00: MOUTH [place] 00 TWICE A Medical DAY WITH Branch MEALS METFORMIN 2021-0 Yes [id number] TAKE 1 U nivers 1,000 mg 7-02 TABLET BY ity of tablet 00:00: MOUTH [place] 00 TWICE A Medical DAY WITH Branch MEALS METFORMIN 2021-0 Yes [id number] TAKE 1 U nivers 1,000 mg 7-02 TABLET BY ity of tablet 00:00: MOUTH [place] 00 TWICE A Medical DAY WITH Branch MEALS METFORMIN 2021-0 Yes [id number] TAKE 1 U nivers 1,000 mg 7-02 TABLET BY ity of tablet 00:00: MOUTH [place] 00 TWICE A Medical DAY WITH Branch MEALS METFORMIN 2021-0 Yes [id number] TAKE 1 U nivers 1,000 mg 7-02 TABLET BY ity of tablet 00:00: MOUTH [place] 00 TWICE A Medical DAY WITH Branch MEALS METFORMIN 2021-0 Yes [id number] TAKE 1 U nivers 1,000 mg 7-02 TABLET BY ity of tablet 00:00: MOUTH [place] 00 TWICE A Medical DAY WITH Branch MEALS METFORMIN 2021-0 Yes [id number] TAKE 1 U nivers 1,000 mg 7-02 TABLET BY ity of tablet 00:00: MOUTH [place] 00 TWICE A Medical DAY WITH Branch MEALS METFORMIN 2021-0 Yes [id number] TAKE 1 U nivers 1,000 mg 7-02 TABLET BY ity of tablet 00:00: MOUTH [place] 00 TWICE A Medical DAY WITH Branch MEALS LISINOPRIL 2021-0 Yes [id number] TAKE 1 U nivers 20 mg 6-09 TABLET BY ity of tablet 00:00: MOUTH [place] 00 TWICE A Medical DAY Branch ATORVASTATI 2021-0 Yes [id number] TAKE 1 Univers N 10 mg 6-09 TABLET BY ity of tablet 00:00: MOUTH [place] 00 EVERYDAY Medical AT BEDTIME Branch LISINOPRIL 2021-0 Yes [id number] TAKE 1 U nivers 20 mg 6-09 TABLET BY ity of tablet 00:00: MOUTH [place] 00 TWICE A Medical DAY Branch ATORVASTATI 2021-0 Yes [id number] TAKE 1 Univers N 10 mg 6-09 TABLET BY ity of tablet 00:00: MOUTH [place] 00 EVERYDAY Medical AT BEDTIME Branch LISINOPRIL 2021-0 2021- No [id number] TAKE 1 Univers 20 mg 12-25 TABLET BY ity of tablet 00:00: 00:00 MOUTH [place] 00 :00 TWICE A Medical DAY Branch ATORVASTATI 2020- No [id number] TAKE 1 Univers N 10 mg 12-25 TABLET BY ity of tablet 00:00: 00:00 MOUTH [place] 00 :00 EVERYDAY Medical AT BEDTIME Branch hydroCHLORO 0 Yes [id number] 12.5mg Take 1 Univers thiazide 4-23 capsule by ity o f 12.5 mg 00:00: mouth [place] capsule 00 daily. Medical Branch hydroCHLORO Yes [id number] 12.5mg Take 1 Univers thiazide 4-23 capsule by ity o f 12.5 mg 00:00: mouth [place] capsule 00 daily. Medical Branch hydroCHLORO Yes [id number] 12.5mg Take 1 Univers thiazide 4-23 capsule by ity o f 12.5 mg 00:00: mouth [place] capsule 00 daily. Medical Branch hydroCHLORO Yes [id number] 12.5mg Take 1 Univers thiazide 4-23 capsule by ity o f 12.5 mg 00:00: mouth [place] capsule 00 daily. Medical Branch hydroCHLORO Yes [id number] 12.5mg Take 1 Univers thiazide 4-23 capsule by ity o f 12.5 mg 00:00: mouth [place] capsule 00 daily. Medical Branch hydroCHLORO Yes [id number] 12.5mg Take 1 Univers thiazide 4-23 capsule by ity o f 12.5 mg 00:00: mouth [place] capsule 00 daily. Medical Branch hydroCHLORO 0 Yes [id number] 12.5mg Take 1 Univers thiazide 4-23 capsule by ity o f 12.5 mg 00:00: mouth [place] capsule 00 daily. Medical Branch hydroCHLORO 0 Yes [id number] 12.5mg Take 1 Univers thiazide 4-23 capsule by ity o f 12.5 mg 00:00: mouth [place] capsule 00 daily. Medical Branch hydroCHLORO Yes [id number] 12.5mg Take 1 Univers thiazide 4-23 capsule by ity o f 12.5 mg 00:00: mouth [place] capsule 00 daily. Medical Branch hydroCHLORO 2021-0 Yes [id number] 12.5mg Take 1 Univers thiazide 4-23 capsule by ity o f 12.5 mg 00:00: mouth [place] capsule 00 daily. Medical Branch hydroCHLORO 2020-0 Yes [id number] 12.5mg Take 1 Univers thiazide 4-23 capsule by ity o f 12.5 mg 00:00: mouth [place] capsule 00 daily. Medical Branch hydroCHLORO 2020-0 Yes [id number] 12.5mg Take 1 Univers thiazide 4-23 capsule by ity o f 12.5 mg 00:00: mouth [place] capsule 00 daily. Medical Branch hydroCHLORO 2020-0 Yes [id number] 12.5mg Take 1 Univers thiazide 4-23 capsule by ity o f 12.5 mg 00:00: mouth [place] capsule 00 daily. Medical Branch hydroCHLORO 2020-0 Yes [id number] 12.5mg Take 1 Univers thiazide 4-23 capsule by ity o f 12.5 mg 00:00: mouth [place] capsule 00 daily. Medical Branch hydroCHLORO 2020-0 Yes [id number] 12.5mg Take 1 Univers thiazide 4-23 capsule by ity o f 12.5 mg 00:00: mouth [place] capsule 00 daily. Medical Branch hydroCHLORO 2020-0 Yes [id number] 12.5mg Take 1 Univers thiazide 4-23 capsule by ity o f 12.5 mg 00:00: mouth [place] capsule 00 daily. Medical Branch hydroCHLORO 2020-0 Yes [id number] 12.5mg Take 1 Univers thiazide 4-23 capsule by ity o f 12.5 mg 00:00: mouth [place] capsule 00 daily. Medical Branch ATORVASTATI 2020-0 Yes [id number] TAKE 1 Univers N 10 mg 2-09 TABLET BY ity of tablet 00:00: MOUTH [place] 00 EVERYDAY Medical AT BEDTIME Branch ATORVASTATI 2020-0 Yes [id number] TAKE 1 Univers N 10 mg 2-09 TABLET BY ity of tablet 00:00: MOUTH [place] 00 EVERYDAY Medical AT BEDTIME Branch ATORVASTATI 2020-0 Yes [id number] TAKE 1 Univers N 10 mg 2-09 TABLET BY ity of tablet 00:00: MOUTH [place] 00 EVERYDAY Medical AT BEDTIME Branch ATORVASTATI 2020-0 Yes [id number] TAKE 1 Univers N 10 mg 2-09 TABLET BY ity of tablet 00:00: MOUTH [place] 00 EVERYDAY Medical AT BEDTIME Branch ATORVASTATI 0 2020- No [id number] TAKE 1 Univers N 10 mg 08-27 TABLET BY ity of tablet 00:00: 00:00 MOUTH [place] 00 :00 EVERYDAY Medical AT BEDTIME Branch lisinopriL 0 Yes [id number] 20mg Take 1 U nivers 20 mg 1-26 tablet by ity of tablet 00:00: mouth 2 (two) Medical times Branch daily. hydroCHLORO 2020-0 Yes [id number] 12.5mg Take 1 Univers thiazide 1-26 capsule by ity o f 12.5 mg 00:00: mouth [place] capsule 00 daily. Medical Branch lisinopriL Yes [id number] 20mg Take 1 U nivers 20 mg 1-26 tablet by ity of tablet 00:00: mouth 2 (two) Medical times Branch daily. hydroCHLORO Yes [id number] 12.5mg Take 1 Univers thiazide 1-26 capsule by ity o f 12.5 mg 00:00: mouth [place] capsule 00 daily. Medical Branch ATORVASTATI 0 Yes [id number] TAKE 1 Univers N 10 mg 1-26 TABLET BY ity of tablet 00:00: MOUTH [place] 00 EVERYDAY Medical AT BEDTIME Branch lisinopriL 0 Yes [id number] 20mg Take 1 U nivers 20 mg 1-26 tablet by ity of tablet 00:00: mouth 2 (two) Medical times Branch daily. hydroCHLORO 2020-0 Yes [id number] 12.5mg Take 1 Univers thiazide 1-26 capsule by ity o f 12.5 mg 00:00: mouth [place] capsule 00 daily. Medical Branch lisinopriL 0 Yes [id number] 20mg Take 1 U nivers 20 mg 1-26 tablet by ity of tablet 00:00: mouth 2 (two) Medical times Branch daily. hydroCHLORO 2020-0 Yes [id number] 12.5mg Take 1 Univers thiazide 1-26 capsule by ity o f 12.5 mg 00:00: mouth [place] capsule 00 daily. Medical Branch lisinopriL 0 Yes [id number] 20mg Take 1 U nivers 20 mg 1-26 tablet by ity of tablet 00:00: mouth 2 [place] 00 (two) Medical times Branch daily. lisinopriL Yes [id number] 20mg Take 1 U nivers 20 mg 1-26 tablet by ity of tablet 00:00: mouth 2 00 (two) Medical times Branch daily. lisinopriL 2020- No [id number] 20mg Take 1 Univers 20 mg 1-26 06-09 tablet by ity of tablet 00:00: 00:00 mouth 2 00 :00 (two) Medical times Branch daily. hydroCHLORO 2020- No [id number] 12.5mg Take 1 Univers thiazide 1-26 -23 capsule by ity of 12.5 mg 00:00: 00:00 mouth [place] capsule 00 :00 daily. Medical Branch DICYCLOMINE 2020- Yes [id number] 20mg TAKE 2 Univers 10 mg 2-28 CAPSULES ity of capsule 00:00: [place]OU[place] 3 [place] (THREE) Medical TIMES Branch DAILY. DICYCLOMINE 2020-1 Yes [id number] 20mg TAKE 2 Univers 10 mg 2-28 CAPSULES ity of capsule 00:00: [place]OU[place] 3 [place] (THREE) Medical TIMES Branch DAILY. DICYCLOMINE 2020-1 Yes [id number] 20mg TAKE 2 Univers 10 mg 2-28 CAPSULES ity of capsule 00:00: [place]OUTH 3 [place] (THREE) Medical TIMES Branch DAILY. DICYCLOMINE 2020-1 Yes [id number] 20mg TAKE 2 Univers 10 mg 2-28 CAPSULES ity of capsule 00:00: [place]OUTH 3 [place] (THREE) Medical TIMES Branch DAILY. DICYCLOMINE 2020-1 Yes [id number] 20mg TAKE 2 Univers 10 mg 2-28 CAPSULES ity of capsule 00:00: [place] MOUTH 3 [place] (THREE) Medical TIMES Branch DAILY. DICYCLOMINE 2020-1 Yes [id number] 20mg TAKE 2 Univers 10 mg 2-28 CAPSULES ity of capsule 00:00: [place] MOUTH 3 [place] (THREE) Medical TIMES Branch DAILY. DICYCLOMINE 2020-1 Yes [id number] 20mg TAKE 2 Univers 10 mg 2-28 CAPSULES ity of capsule 00:00: BY MOUTH 3 [place] (THREE) Medical TIMES Branch DAILY. DICYCLOMINE 2020-1 Yes [id number] 20mg TAKE 2 Univers 10 mg 2-28 CAPSULES ity of capsule 00:00: [place] MOUTH 3 [place] (THREE) Medical TIMES Branch DAILY. DICYCLOMINE 2020-1 Yes [id number] 20mg TAKE 2 Univers 10 mg 2-28 CAPSULES ity of capsule 00:00: [place] MOUTH 3 [place] (THREE) Medical TIMES Branch DAILY. DICYCLOMINE 2020-1 Yes [id number] 20mg TAKE 2 Univers 10 mg 2-28 CAPSULES ity of capsule 00:00: BY MOUTH 3 [place] 00 (THREE) Medical TIMES Branch DAILY. DICYCLOMINE 2020-1 Yes [id number] 20mg TAKE 2 Univers 10 mg 2-28 CAPSULES ity of capsule 00:00: BY MOUTH 3 [place] (THREE) Medical TIMES Branch DAILY. DICYCLOMINE 2020-1 Yes [id number] 20mg TAKE 2 Univers 10 mg 2-28 CAPSULES ity of capsule 00:00: BY MOUTH 3 [place] (THREE) Medical TIMES Branch DAILY. DICYCLOMINE 2020-1 Yes [id number] 20mg TAKE 2 Univers 10 mg 2-28 CAPSULES ity of capsule 00:00: [place] MOUTH 3 [place] (THREE) Medical TIMES Branch DAILY. DICYCLOMINE 2020-1 Yes [id number] 20mg TAKE 2 [facility] 10 mg 2-28 CAPSULES ity of capsule 00:00: BY MOUTH 3 [place] (THREE) Medical TIMES Branch DAILY. DICYCLOMINE 2020-1 Yes [id number] 20mg TAKE 2 Univers 10 mg 2-28 CAPSULES ity of capsule 00:00: BY MOUTH 3 [place] (THREE) Medical TIMES Branch DAILY. DICYCLOMINE 2020-1 Yes [id number] 20mg TAKE 2 Univers 10 mg 2-28 CAPSULES ity of capsule 00:00: BY MOUTH 3 [place] (THREE) Medical TIMES Branch DAILY. DICYCLOMINE 2020-1 Yes [id number] 20mg TAKE 2 Univers 10 mg 2-28 CAPSULES ity of capsule 00:00: BY MOUTH 3 [place] (THREE) Medical TIMES Branch DAILY. DICYCLOMINE 2020-1 Yes [id number] 20mg TAKE 2 Univers 10 mg 2-28 CAPSULES ity of capsule 00:00: BY MOUTH 3 [place] (THREE) Medical TIMES Branch DAILY. DICYCLOMINE 2020-1 Yes [id number] 20mg TAKE 2 Univers 10 mg 2-28 CAPSULES ity of capsule 00:00: BY MOUTH 3 [place] (THREE) Medical TIMES Branch DAILY. DICYCLOMINE 2020-1 Yes [id number] 20mg TAKE 2 Univers 10 mg 2-28 CAPSULES ity of capsule 00:00: BY MOUTH 3 [place] (THREE) Medical TIMES Branch DAILY. DICYCLOMINE 2020-1 Yes [id number] 20mg TAKE 2 Univers 10 mg 2-28 CAPSULES ity of capsule 00:00: BY MOUTH 3 [place] (THREE) Medical TIMES Branch DAILY. DICYCLOMINE 2020-1 Yes [id number] 20mg TAKE 2 Univers 10 mg 2-28 CAPSULES ity of capsule 00:00: BY MOUTH 3 [place] (THREE) Medical TIMES Branch DAILY. DICYCLOMINE 2020-1 Yes [id number] 20mg TAKE 2 Univers 10 mg 2-28 CAPSULES ity of capsule 00:00: [place] MOUTH 3 [place] (THREE) Medical TIMES Branch DAILY. CARVEDILOL 2019- Yes [id number] TAKE 1 U nivers 12.5 mg 2-18 TABLET BY ity of tablet 00:00: MOUTH 00 TWICE A Medical DAY WITH Branch MEALS CARVEDILOL 2019-07 Yes [id number] TAKE 1 U nivers 12.5 mg 2-18 TABLET BY ity of tablet 00:00: MOUTH 00 TWICE A Medical DAY WITH Branch MEALS CARVEDILOL 2019-07 Yes [id number] TAKE 1 U nivers 12.5 mg 2-18 TABLET BY ity of tablet 00:00: MOUTH TWICE A Medical DAY WITH Branch MEALS CARVEDILOL 2019-07 Yes [id number] TAKE 1 U nivers 12.5 mg 2-18 TABLET BY ity of tablet 00:00: MOUTH 00 TWICE A Medical DAY WITH Branch MEALS CARVEDILOL 2019-07 Yes [id number] TAKE 1 U nivers 12.5 mg 2-18 TABLET BY ity of tablet 00:00: MOUTH 00 TWICE A Medical DAY WITH Branch MEALS CARVEDILOL 2019-07 Yes [id number] TAKE 1 U nivers 12.5 mg 2-18 TABLET BY ity of tablet 00:00: MOUTH 00 TWICE A Medical DAY WITH Branch MEALS CARVEDILOL 2019-07 Yes [id number] TAKE 1 U nivers 12.5 mg 2-18 TABLET BY ity of tablet 00:00: MOUTH 00 TWICE A Medical DAY WITH Branch MEALS CARVEDILOL 2020-1 Yes [id number] TAKE 1 U nivers 12.5 mg 2-18 TABLET BY ity of tablet 00:00: MOUTH 00 TWICE A Medical DAY WITH Branch MEALS CARVEDILOL 2020- Yes [id number] TAKE 1 U nivers 12.5 mg 2-18 TABLET BY ity of tablet 00:00: MOUTH 00 TWICE A Medical DAY WITH Branch MEALS CARVEDILOL 2020- Yes [id number] TAKE 1 U nivers 12.5 mg 2-18 TABLET BY ity of tablet 00:00: MOUTH 00 TWICE A Medical DAY WITH Branch MEALS CARVEDILOL 2020- Yes [id number] TAKE 1 U nivers 12.5 mg 2-18 TABLET BY ity of tablet 00:00: MOUTH 00 TWICE A Medical DAY WITH Branch MEALS CARVEDILOL 2020- Yes [id number] TAKE 1 U nivers 12.5 mg 2-18 TABLET BY ity of tablet 00:00: MOUTH TWICE A Medical DAY WITH Branch MEALS CARVEDILOL 2020- Yes [id number] TAKE 1 U nivers 12.5 mg 2-18 TABLET BY ity of tablet 00:00: MOUTH 00 TWICE A Medical DAY WITH Branch MEALS CARVEDILOL 2020- Yes [id number] TAKE 1 U nivers 12.5 mg 2-18 TABLET BY ity of tablet 00:00: MOUTH 00 TWICE A Medical DAY WITH Branch MEALS CARVEDILOL 2020- Yes [id number] TAKE 1 U nivers 12.5 mg 2-18 TABLET BY ity of tablet 00:00: MOUTH 00 TWICE A Medical DAY WITH Branch MEALS CARVEDILOL 2020-1 Yes [id number] TAKE 1 U nivers 12.5 mg 2-18 TABLET BY ity of tablet 00:00: MOUTH 00 TWICE A Medical DAY WITH Branch MEALS CARVEDILOL 2020- Yes [id number] TAKE 1 U nivers 12.5 mg 2-18 TABLET BY ity of tablet 00:00: MOUTH 00 TWICE A Medical DAY WITH Branch MEALS CARVEDILOL 2020- Yes [id number] TAKE 1 U nivers 12.5 mg 2-18 TABLET BY ity of tablet 00:00: MOUTH 00 TWICE A Medical DAY WITH Branch MEALS CARVEDILOL 2020-1 Yes [id number] TAKE 1 U nivers 12.5 mg 2-18 TABLET BY ity of tablet 00:00: MOUTH 00 TWICE A Medical DAY WITH Branch MEALS CARVEDILOL 2020-1 Yes [id number] TAKE 1 U nivers 12.5 mg 2-18 TABLET BY ity of tablet 00:00: MOUTH 00 TWICE A Medical DAY WITH Branch MEALS CARVEDILOL 2020-1 Yes [id number] TAKE 1 U nivers 12.5 mg 2-18 TABLET BY ity of tablet 00:00: MOUTH 00 TWICE A Medical DAY WITH Branch MEALS CARVEDILOL 2020-1 Yes [id number] TAKE 1 U nivers 12.5 mg 2-18 TABLET BY ity of tablet 00:00: MOUTH 00 TWICE A Medical DAY WITH Branch MEALS CARVEDILOL 2020-1 Yes [id number] TAKE 1 U nivers 12.5 mg 2-18 TABLET BY ity of tablet 00:00: MOUTH 00 TWICE A Medical DAY WITH Branch MEALS CARVEDILOL 2020- Yes [id number] TAKE 1 U nivers 12.5 mg 2-18 TABLET BY ity of tablet 00:00: MOUTH 00 TWICE A Medical DAY WITH Branch MEALS CARVEDILOL 2020-1 Yes [id number] TAKE 1 U nivers 12.5 mg 2-18 TABLET BY ity of tablet 00:00: MOUTH 00 TWICE A Medical DAY WITH Branch MEALS METFORMIN 2020-1 Yes [id number] TAKE 1 U nivers 1,000 mg 2-16 TABLET BY ity of tablet 00:00: MOUTH 00 TWICE A Medical DAY WITH Branch MEALS METFORMIN 2020-1 Yes [id number] TAKE 1 U nivers 1,000 mg 2-16 TABLET BY ity of tablet 00:00: MOUTH 00 TWICE A Medical DAY WITH Branch MEALS METFORMIN 2020-1 Yes [id number] TAKE 1 U nivers 1,000 mg 2-16 TABLET BY ity of tablet 00:00: MOUTH 00 TWICE A Medical DAY WITH Branch MEALS METFORMIN 2020-1 Yes [id number] TAKE 1 U nivers 1,000 mg 2-16 TABLET BY ity of tablet 00:00: MOUTH 00 TWICE A Medical DAY WITH Branch MEALS METFORMIN 2020-1 Yes [id number] TAKE 1 U nivers 1,000 mg 2-16 TABLET BY ity of tablet 00:00: MOUTH 00 TWICE A Medical DAY WITH Branch MEALS METFORMIN 2020-1 Yes [id number] TAKE 1 U nivers 1,000 mg 2-16 TABLET BY ity of tablet 00:00: MOUTH [place] 00 TWICE A Medical DAY WITH Branch MEALS METFORMIN 2020- Yes [id number] TAKE 1 U nivers 1,000 mg 2-16 TABLET BY ity of tablet 00:00: MOUTH [place] 00 TWICE A Medical DAY WITH Branch MEALS METFORMIN 2020- Yes [id number] TAKE 1 U nivers 1,000 mg 2-16 TABLET BY ity of tablet 00:00: MOUTH [place] 00 TWICE A Medical DAY WITH Branch MEALS METFORMIN 2020- Yes [id number] TAKE 1 U nivers 1,000 mg 2-16 TABLET BY ity of tablet 00:00: MOUTH [place] 00 TWICE A Medical DAY WITH Branch MEALS METFORMIN 2020- Yes [id number] TAKE 1 U nivers 1,000 mg 2-16 TABLET BY ity of tablet 00:00: MOUTH [place] 00 TWICE A Medical DAY WITH Branch MEALS METFORMIN 2020- Yes [id number] TAKE 1 U nivers 1,000 mg 2-16 TABLET BY ity of tablet 00:00: MOUTH [place] 00 TWICE A Medical DAY WITH Branch MEALS METFORMIN 2020- Yes [id number] TAKE 1 U nivers 1,000 mg 2-16 TABLET BY ity of tablet 00:00: MOUTH [place] 00 TWICE A Medical DAY WITH Branch MEALS METFORMIN 2020-2020- No [id number] TAKE 1 [facility] 1,000 mg 2-16 - TABLET BY [facility] o f tablet 00:00: 00:00 MOUTH [place] 00 :00 TWICE A Medical DAY WITH Branch MEALS DICYCLOMINE 2020- Yes [id number] 20mg TAKE 2 [facility] 10 mg 2-14 CAPSULES [facility] capsule 00:00: BY MOUTH 3 [place] (THREE) Medical TIMES Branch DAILY. DICYCLOMINE 2020- Yes [id number] 20mg TAKE 2 [facility] 10 mg 2-14 CAPSULES [facility] capsule 00:00: [place]TH 3 [place] (THREE) Medical TIMES Branch DAILY. DICYCLOMINE 2020- Yes [id number] 20mg TAKE 2 [facility] 10 mg 2-14 CAPSULES [facility] capsule 00:00: [place] M[place]TH 3 [place] (THREE) Medical TIMES Branch DAILY. DICYCLOMINE 2020- Yes [id number] 20mg TAKE 2 [facility] 10 mg 2-14 CAPSULES [facility] capsule 00:00: [place] MOUTH 3 [place] (THREE) Medical TIMES Branch DAILY. DICYCLOMINE 2019-07 2020- No [id number] 20mg TAKE 2 [facility] 10 mg 2-14 12-28 CAPSULES [facility] capsule 00:00: 00:00 BY MOUTH 3 [place] :[place] (THREE) Medical TIMES Branch DAILY. ATORVASTATI 2019-07 Yes [id number] TAKE 1 [facility] N 10 mg 1-30 TABLET BY [facility] of tablet 00:00: MOUTH [place] 00 EVERYDAY Medical AT BEDTIME Branch ATORVASTA 2019-07 Yes [id number] TAKE 1 [facility] N 10 mg 1-30 TABLET BY [facility] of tablet 00:00: MOUTH [place] 00 EVERYDAY Medical AT BEDTIME Branch ATORVASTA 2019-07 Yes [id number] TAKE 1 [facility] N 10 mg 1-30 TABLET BY [facility] tablet 00:00: MOUTH [place] 00 EVERYDAY Medical AT BEDTIME Branch ATORVASTA 2019-07 Yes [id number] TAKE 1 [facility] N 10 mg 1-30 TABLET BY [facility] tablet 00:00: MOUTH [place] 00 EVERYDAY Medical AT BEDTIME Branch ATORVASTA 2019-07 Yes [id number] TAKE 1 [facility] N 10 mg 1-30 TABLET BY [facility] of tablet 00:00: MOUTH [place] 00 EVERYDAY Medical AT BEDTIME Branch ATORVASTA 2019-07 Yes [id number] TAKE 1 [facility] N 10 mg 1-30 TABLET BY [facility] of tablet 00:00: MOUTH [place] 00 EVERYDAY Medical AT BEDTIME Branch ATORVASTA 2019-07 Yes [id number] TAKE 1 [facility] N 10 mg 1-30 TABLET BY [facility] of tablet 00:00: MOUTH [place] 00 EVERYDAY Medical AT BEDTIME Branch ATORVASTATI 2019-07 Yes [id number] TAKE 1 [facility] N 10 mg 1-30 TABLET BY [facility] tablet 00:00: MOUTH [place] 00 EVERYDAY Medical AT BEDTIME Branch ATORVASTA 2019-07 Yes [id number] TAKE 1 [facility] N 10 mg 1-30 TABLET BY [facility] of tablet 00:00: MOUTH [place] 00 EVERYDAY Medical AT BEDTIME Branch ATORVASTA 2019-07 Yes [id number] TAKE 1 [facility] N 10 mg 1-30 TABLET BY [facility] of tablet 00:00: MOUTH [place] 00 EVERYDAY Medical AT BEDTIME Branch ATORVASTA 2019-07- No [id number] TAKE 1 [facility] N 10 mg 1-30 01-26 TABLET BY [facility] of tablet 00:00: 00:00 MOUTH [place] 00 :00 EVERYDAY Medical AT BEDTIME Branch dicyclomine 2019-07 Yes [id number] 20mg Take 2 [facility] (BENTYL) 10 1-19 capsules [facility] of mg capsule 00:00: by mouth 3 [place] 00 (three) Medical times Branch daily. dicyclomine 2019-07 Yes [id number] 20mg Take 2 [facility] (BENTYL) 10 1-19 capsules [facility] mg capsule 00:00: by mouth 3 [place] 00 (three) Medical times Branch daily. dicyclomine 2019-07 Yes [id number] 20mg Take 2 [facility] (BENTYL) 10 1-19 capsules [facility] of mg capsule 00:00: by mouth 3 [place] 00 (three) Medical times Branch daily. dicyclomine 2019-07- No [id number] 20mg Take 2 [facility] (BENTYL) 10 1-19 12-14 capsules ity of mg capsule 00:00: 00:00 by mouth 3 [place] 00 :00 (three) Medical times Branch daily. atorvastati 2019-07 Yes [id number] 10mg Take 1 [facility] n 10 mg 1-05 tablet by [facility] of tablet 00:00: mouth at [place] 00 bedtime. Medical Branch atorvastati 2019-07 Yes [id number] 10mg Take 1 [facility] n 10 mg 1-05 tablet by [facility] of tablet 00:00: mouth at [place] 00 bedtime. Medical Branch atorvastati 2019-07 Yes [id number] 10mg Take 1 [facility] n 10 mg 1-05 tablet by [facility] of tablet 00:00: mouth at [place] 00 bedtime. Medical Branch hydroCHLORO 2019-07- No [id number] 12.5mg Take 1 [facility] thiazide 1-05 02-04 capsule by ity of 12.5 mg 00:00: 05:59 mouth [place] capsule 00 :00 daily for Medical 90 days. Branch lisinopriL 2019-07- No [id number] 20mg Take 1 [facility] 20 mg 1-05 02-04 tablet by it[facility] of tablet 00:00: 05:59 mouth 2 [place] 00 :00 (two) Medical times Branch daily for 90 days. hydroCHLORO 2019-07- No [id number] 12.5mg Take 1 [facility] thiazide 1-05 02-04 capsule by ity of 12.5 mg 00:00: 05:59 mouth [place] capsule 00 :00 daily for Medical 90 days. [facility] lisinopriL 2019-07- No [id number] 20mg Take 1 [facility] 20 mg 1-05 02-04 tablet by [facility] of tablet 00:00: 05:59 mouth 2 [place] 00 :00 (two) Medical times [facility] daily for 90 days. hydroCHLORO 2019-07- No [id number] 12.5mg Take 1 [facility] thiazide 1-05 02-04 capsule by [facility] of 12.5 mg 00:00: 05:59 mouth [place] capsule 00 :00 daily for Medical 90 days. [facility] lisinopriL 2019-07- No [id number] 20mg Take 1 [facility] 20 mg 1-05 02-04 tablet by [facility] of tablet 00:00: 05:59 mouth 2 [place] 00 :00 (two) Medical times [facility] daily for 90 days. hydroCHLORO 2019-07- No [id number] 12.5mg Take 1 [facility] thiazide 1-05 02-04 capsule by [facility] of 12.5 mg 00:00: 05:59 mouth [place] capsule 00 :00 daily for Medical 90 days. [facility] lisinopriL 2019-07- No [id number] 20mg Take 1 [facility] 20 mg 1-05 02-04 tablet by [facility] of tablet 00:00: 05:59 mouth 2 [place] 00 :00 (two) Medical times [facility] daily for 90 days. hydroCHLORO 2019-07- No [id number] 12.5mg Take 1 [facility] thiazide 1-05 02-04 capsule by [facility] of 12.5 mg 00:00: 05:59 mouth [place] capsule 00 :00 daily for Medical 90 days. [facility] lisinopriL 2019-07- No [id number] 20mg Take 1 [facility] 20 mg 1-05 02-04 tablet by [facility] of tablet 00:00: 05:59 mouth 2 [place] 00 :00 (two) Medical times [facility] daily for 90 days. hydroCHLORO 2019-07- No [id number] 12.5mg Take 1 [facility] thiazide 1-05 02-04 capsule by [facility] of 12.5 mg 00:00: 05:59 mouth [place] capsule 00 :00 daily for Medical 90 days. [facility] lisinopriL 2019-07- No [id number] 20mg Take 1 [facility] 20 mg 1-05 02-04 tablet by [facility] of tablet 00:00: 05:59 mouth 2 [place] 00 :00 (two) Medical times Branch daily for 90 days. hydroCHLORO 2019-07- No [id number] 12.5mg Take 1 [facility] thiazide 1-05 02-04 capsule by [facility] of 12.5 mg 00:00: 05:59 mouth [place] capsule 00 :00 daily for Medical 90 days. [facility] lisinopriL 2019-07- No [id number] 20mg Take 1 [facility] 20 mg 1-05 02-04 tablet by [facility] of tablet 00:00: 05:59 mouth 2 [place] 00 :00 (two) Medical times Branch daily for 90 days. hydroCHLORO 2019-07- No [id number] 12.5mg Take 1 [facility] thiazide 1-05 02-04 capsule by [facility]y of 12.5 mg 00:00: 05:59 mouth [place] capsule 00 :00 daily for Medical 90 days. [facility] lisinopriL 2019-07- No [id number] 20mg Take 1 [facility] 20 mg 1-05 02-04 tablet by [facility] of tablet 00:00: 05:59 mouth 2 [place] 00 :00 (two) Medical times [facility] daily for 90 days. hydroCHLORO 2019-07- No [id number] 12.5mg Take 1 [facility] thiazide 1-05 02-04 capsule by [facility] of 12.5 mg 00:00: 05:59 mouth [place] capsule 00 :00 daily for Medical 90 days. [facility] lisinopriL 2019-07- No [id number] 20mg Take 1 [facility] 20 mg 1-05 02-04 tablet by [facility] of tablet 00:00: 05:59 mouth 2 [place] 00 :00 (two) Medical times Branch daily for 90 days. hydroCHLORO 2019-07- No [id number] 12.5mg Take 1 [facility] thiazide 1-05 02-04 capsule by [facility] of 12.5 mg 00:00: 05:59 mouth [place] capsule 00 :00 daily for Medical 90 days. [facility] lisinopriL 2019-07- No [id number] 20mg Take 1 [facility] 20 mg 1-05 02-04 tablet by [facility] of tablet 00:00: 05:59 mouth 2 [place] 00 :00 (two) Medical times [facility] daily for 90 days. hydroCHLORO 2019-07- No [id number] 12.5mg Take 1 [facility] thiazide 1-11 17-04 capsule by [facility]y of 12.5 mg 00:00: 05:59 mouth [place] capsule 00 :00 daily for Medical 90 days. Branch lisinopriL 2019-07- No [id number] 20mg Take 1 [facility] 20 mg 07-23-04 tablet by [facility] of tablet 00:00: 05:59 mouth 2 [place] 00 :00 (two) Medical times [facility] daily for 90 days. hydroCHLORO 2019-07- No [id number] 12.5mg Take 1 [facility] thiazide 07-23- capsule by [facility]y of 12.5 mg 00:00: 05:59 mouth [place] capsule 00 :00 daily for Medical 90 days. Branch lisinopriL 2019-07 No [id number] 20mg Take 1 [facility] 20 mg 07-23 tablet by [facility] of tablet 00:00: 05:59 mouth 2 [place] 00 :00 (two) Medical times [facility] daily for 90 days. hydroCHLORO 2019-07 No [id number] 12.5mg Take 1 [facility] thiazide 07-23 capsule by ity of 12.5 mg 00:00: 00:00 mouth [place] capsule 00 :00 daily for Medical 90 days. Branch lisinopriL 2019-07- No [id number] 20mg Take 1 [facility] 20 mg 07-23 tablet by [facility] of tablet 00:00: 00:00 mouth 2 [place] 00 :00 (two) Medical times [facility] daily for 90 days. atorvastati 2019-07- No [id number] 10mg Take 1 [facility] n 10 mg 07-2330 tablet by [facility] of tablet 00:00: 00:00 mouth at [place] 00 :00 bedtime. Medical Branch hydroCHLORO 2019-07- No [id number] 25mg Take 1 [facility] thiazide 25 -05 11-05 tablet by it y of mg tablet 00:00: 00:00 mouth [place] 00 :00 daily for Medical 90 days. Branch hydroCHLORO 2019-07- No [id number] 25mg Take 1 [facility] thiazide 25 -05 11-05 tablet by it y of mg tablet 00:00: 00:00 mouth [place] 00 :00 daily for Medical 90 days. Branch acetaminoph 2019-07 Yes [facility] s en-codeine 1-03 ity of 300-30 mg 00:00: [place] tablet 00 Medical Branch clindamycin 2020-1 Yes [facility] 150 mg 1-03 ity of capsule 00:00: [place] 00 Medical Branch acetaminoph 2020-1 Yes [facility] s en-codeine 1-03 ity of 300-30 mg 00:00: [place] tablet 00 Medical Branch clindamycin 2020-1 Yes [facility] s 150 mg 1-03 ity of capsule 00:00: [place] [facility] acetaminoph 2020-1 Yes [facility] s en-codeine 1-03 ity of 300-30 mg 00:00: [place] tablet 00 Medical Branch clindamycin 2020-1 Yes [facility] s 150 mg 1-03 ity of capsule 00:00: [place] [facility] acetaminoph 2020-1 Yes [facility] s en-codeine 1-03 ity of 300-30 mg 00:00: [place] tablet 00 Medical Branch clindamycin 2020-1 Yes [facility] s 150 mg 1-03 ity of capsule 00:00: [place] [facility] acetaminoph 2020-1 Yes [facility] s en-codeine 1-03 ity of 300-30 mg 00:00: [place] tablet 00 Medical Branch clindamycin 2020-1 Yes [facility] s 150 mg 1-03 ity of capsule 00:00: [place] [facility] acetaminoph 2020-1 Yes Un[facility] s en-codeine 1-03 ity of 300-30 mg 00:00: [place] tablet 00 Medical Branch clindamycin 2020-1 Yes [facility] s 150 mg 1-03 ity of capsule 00:00: [place] [facility] acetaminoph 2020-1 Yes Un[facility] s en-codeine 1-03 ity of 300-30 mg 00:00: [place] tablet 00 Medical Branch clindamycin 2020-1 Yes [facility] s 150 mg 1-03 ity of capsule 00:00: [place] 00 Medical Branch acetaminoph 2020-1 Yes Un[facility] s en-codeine 1-03 ity of 300-30 mg 00:00: [place] tablet 00 Medical Branch clindamycin 2020-1 Yes [facility] s 150 mg 1-03 ity of capsule 00:00: [place] 00 Medical Branch acetaminoph 2020-1 Yes Un[facility] s en-codeine 1-03 ity of 300-30 mg 00:00: [place] tablet 00 Medical Branch clindamycin 2020-1 Yes [facility] s 150 mg 1-03 ity of capsule 00:00: [place] 00 Medical Branch acetaminoph 2020-1 Yes [facility] s en-codeine 1-03 ity of 300-30 mg 00:00: [place] tablet 00 Medical Branch clindamycin 2020-1 Yes [facility] s 150 mg 1-03 ity of capsule 00:00: [place] 00 Medical Branch acetaminoph 2020-1 Yes [facility] s en-codeine 1-03 ity of 300-30 mg 00:00: [place] tablet 00 Medical Branch clindamycin 2020-1 Yes [facility] s 150 mg 1-03 ity of capsule 00:00: [place] 00 Medical Branch acetaminoph 2020-1 Yes [facility] s en-codeine 1-03 ity of 300-30 mg 00:00: [place] tablet 00 Medical Branch clindamycin 2020-1 Yes [facility] s 150 mg 1-03 ity of capsule 00:00: [place] 00 Medical Branch acetaminoph 2020-1 Yes [facility] s en-codeine 1-03 ity of 300-30 mg 00:00: [place] tablet 00 Medical Branch clindamycin 2020-1 Yes [facility] s 150 mg 1-03 ity of capsule 00:00: [place] 00 Medical Branch acetaminoph 2020-1 Yes [facility] s en-codeine 1-03 ity of 300-30 mg 00:00: [place] tablet 00 Medical Branch clindamycin 2020-1 Yes [facility] s 150 mg 1-03 ity of capsule 00:00: [place] 00 Medical Branch acetaminoph 2020-1 Yes [facility] s en-codeine 1-03 ity of 300-30 mg 00:00: [place] tablet 00 Medical Branch clindamycin 2020-1 Yes [facility] s 150 mg 1-03 ity of capsule 00:00: [place] 00 Medical Branch acetaminoph 2020-1 Yes [facility] s en-codeine 1-03 ity of 300-30 mg 00:00: [place] tablet 00 Medical Branch clindamycin 2020-1 Yes [facility] 150 mg 1-03 ity of capsule 00:00: [place] 00 Medical Branch acetaminoph 2020-1 Yes [facility] s en-codeine 1-03 ity of 300-30 mg 00:00: [place] tablet 00 Medical Branch clindamycin 2020-1 Yes [facility] 150 mg 1-03 ity of capsule 00:00: [place] 00 Medical Branch acetaminoph 2020-1 Yes [facility] s en-codeine 1-03 ity of 300-30 mg 00:00: [place] tablet 00 Medical Branch clindamycin 2020-1 Yes [facility] 150 mg 1-03 ity of capsule 00:00: [place] 00 Medical Branch acetaminoph 2020-1 Yes [facility] s en-codeine 1-03 ity of 300-30 mg 00:00: [place] tablet 00 Medical Branch clindamycin 2020-1 Yes [facility] 150 mg 1-03 ity of capsule 00:00: [place] 00 Medical Branch acetaminoph 2020-1 Yes [facility] s en-codeine 1-03 ity of 300-30 mg 00:00: [place] tablet 00 Medical Branch clindamycin 2020-1 Yes [facility] 150 mg 1-03 ity of capsule 00:00: [place] 00 Medical Branch acetaminoph 2020- Yes [facility] s en-codeine 1-03 ity of 300-30 mg 00:00: [place] tablet 00 Medical Branch clindamycin 2020-1 Yes [facility] 150 mg 1-03 ity of capsule 00:00: [place] [facility] acetaminoph 2020-1 Yes [facility] s en-codeine 1-03 ity of 300-30 mg 00:00: [place] tablet 00 Medical Branch clindamycin 2020-1 Yes [facility] 150 mg 1-03 ity of capsule 00:00: [place] 00 Medical Branch acetaminoph 2020-1 Yes [facility] s en-codeine 1-03 ity of 300-30 mg 00:00: [place] tablet 00 Medical Branch clindamycin 2020-1 Yes [facility] 150 mg 1-03 ity of capsule 00:00: [place] 00 Medical Branch acetaminoph 2020-1 Yes [facility] s en-codeine 1-03 ity of 300-30 mg 00:00: [place] tablet 00 Medical Branch clindamycin 2020-1 Yes [facility] 150 mg 1-03 ity of capsule 00:00: [place] 00 Medical Branch acetaminoph 2020-1 Yes [facility] s en-codeine 1-03 ity of 300-30 mg 00:00: [place] tablet 00 Medical Branch clindamycin 2020-1 Yes [facility] 150 mg 1-03 ity of capsule 00:00: [place] 00 Medical Branch acetaminoph 2020-1 Yes [facility] s en-codeine 1-03 ity of 300-30 mg 00:00: [place] tablet 00 Medical Branch clindamycin 2020-1 Yes [facility] 150 mg 1-03 ity of capsule 00:00: [place] 00 Medical Branch acetaminoph 2020-1 Yes [facility] s en-codeine 1-03 ity of 300-30 mg 00:00: [place] tablet 00 Medical Branch clindamycin 2020-1 Yes [facility] 150 mg 1-03 ity of capsule 00:00: [place] [facility] acetaminoph 2020-1 Yes [facility] s en-codeine 1-03 ity of 300-30 mg 00:00: [place] tablet 00 Medical Branch clindamycin 2020-1 Yes [facility] 150 mg 1-03 ity of capsule 00:00: [place] 00 Medical Branch acetaminoph 2020-1 Yes Un[facility] s en-codeine 1-03 ity of 300-30 mg 00:00: [place] tablet 00 Medical Branch clindamycin 2020-1 Yes [facility] 150 mg 1-03 ity of capsule 00:00: [place] [facility] acetaminoph 2020-1 Yes [facility] s en-codeine 1-03 ity of 300-30 mg 00:00: [place] tablet 00 Medical Branch clindamycin 2020-1 Yes [facility] 150 mg 1-03 ity of capsule 00:00: [place] 00 Medical Branch acetaminoph 2020-1 Yes [facility] s en-codeine 1-03 ity of 300-30 mg 00:00: [place] tablet 00 Medical Branch clindamycin 2020-1 Yes [facility] 150 mg 1-03 ity of capsule 00:00: [place] 00 Medical Branch acetaminoph 2020-1 Yes [facility] s en-codeine 1-03 ity of 300-30 mg 00:00: [place] tablet 00 Medical Branch clindamycin 2020-1 Yes [facility] 150 mg 1-03 ity of capsule 00:00: [place] 00 Medical Branch acetaminoph 2020-1 Yes Un[facility] s en-codeine 1-03 ity of 300-30 mg 00:00: [place] tablet 00 Medical Branch clindamycin 2020-1 Yes [facility] 150 mg 1-03 ity of capsule 00:00: [place] 00 Medical Branch HYDROCHLORO 2020-1 Yes [id number] TAKE 1 [facility] THIAZIDE 0-27 CAPSULE BY ity o f 12.5 mg 00:00: MOUTH [place] capsule 00 EVERY DAY Medical Branch HYDROCHLORO 2019-07 Yes [id number] TAKE 1 [facility] THIAZIDE 0-27 CAPSULE BY ity o f 12.5 mg 00:00: MOUTH [place] capsule 00 EVERY DAY Medical Branch HYDROCHLORO 2019-07 Yes [id number] TAKE 1 [facility] THIAZIDE 0-27 CAPSULE BY ity o f 12.5 mg 00:00: MOUTH [place] capsule 00 EVERY DAY Medical Branch dicyclomine 2019-07- No [id number] 20mg Take 2 [facility] (BENTYL) 10 0-27 11-27 capsules ity of mg capsule 00:00: 05:59 by mouth 3 [place] 00 :00 (three) Medical times Branch daily for 30 days. dicyclomine 2019-07- No [id number] 20mg Take 2 [facility] (BENTYL) 10 0-27 11-27 capsules ity of mg capsule 00:00: 05:59 by mouth 3 [place] 00 :00 [facility] Medical times Branch daily for 30 days. dicyclomine 2019-07- No [id number] 20mg Take 2 [facility] (BENTYL) 10 0-27 11-27 capsules ity of mg capsule 00:00: 05:59 by mouth 3 [place] 00 :00 ([facility] health system) Medical times Branch daily for 30 days. dicyclomine 2019-07- No [id number] 20mg Take 2 [facility] (BENTYL) 10 0-27 11-27 capsules ity of mg capsule 00:00: 05:59 by mouth 3 [place] 00 :00 ([facility] health system) Medical times [facility] daily for 30 days. dicyclomine 2019-07- No [id number] 20mg Take 2 [facility] (BENTYL) 10 0-27 11-27 capsules ity of mg capsule 00:00: 05:59 by mouth 3 [place] 00 :00 ([facility] health system) Medical times Branch daily for 30 days. dicyclomine 2019-07- No [id number] 20mg Take 2 [facility] (BENTYL) 10 0-27 11-27 capsules ity of mg capsule 00:00: 05:59 by mouth 3 [place] 00 :00 ([facility] health system) Medical times Branch daily for 30 days. dicyclomine 2019-07- No [id number] 20mg Take 2 [facility] (BENTYL) 10 0-27 11-19 capsules ity of mg capsule 00:00: 00:00 by mouth 3 [place] 00 :00 (three) Medical times Branch daily for 30 days. HYDROCHLORO 2020-1 2020- No [id number] TAKE 1 [facility] THIAZIDE 0-27 11-05 CAPSULE BY ity of 12.5 mg 00:00: 00:00 MOUTH [place] capsule 00 :00 EVERY DAY Medical Branch HYDROCHLORO 2020-1 2020- No [id number] TAKE 1 [facility] THIAZIDE 0-27 11-05 CAPSULE BY ity of 12.5 mg 00:00: 00:00 MOUTH [place] capsule 00 :00 EVERY DAY Medical Branch CARVEDILOL 2020-0 Yes [id number] TAKE 1 [facility] nivers 12.5 mg 9-11 TABLET BY ity of tablet 00:00: MOUTH 00 TWICE A Medical DAY WITH Branch MEALS CARVEDILOL 2020-0 Yes [id number] TAKE 1 U nivers 12.5 mg 9-11 TABLET BY ity of tablet 00:00: MOUTH 00 TWICE A Medical DAY WITH Branch MEALS CARVEDILOL 2020-0 Yes [id number] TAKE 1 U nivers 12.5 mg 9-11 TABLET BY ity of tablet 00:00: MOUTH 00 TWICE A Medical DAY WITH Branch MEALS CARVEDILOL 2020-0 Yes [id number] TAKE 1 U nivers 12.5 mg 9-11 TABLET BY ity of tablet 00:00: MOUTH 00 TWICE A Medical DAY WITH Branch MEALS CARVEDILOL 2020-0 Yes [id number] TAKE 1 U nivers 12.5 mg 9-11 TABLET BY ity of tablet 00:00: MOUTH 00 TWICE A Medical DAY WITH Branch MEALS CARVEDILOL 2020-0 Yes [id number] TAKE 1 U nivers 12.5 mg 9-11 TABLET BY ity of tablet 00:00: MOUTH 00 TWICE A Medical DAY WITH Branch MEALS CARVEDILOL 2020-0 Yes [id number] TAKE 1 U nivers 12.5 mg 9-11 TABLET BY ity of tablet 00:00: MOUTH 00 TWICE A Medical DAY WITH Branch MEALS CARVEDILOL 2020-0 Yes [id number] TAKE 1 U nivers 12.5 mg 9-11 TABLET BY ity of tablet 00:00: MOUTH 00 TWICE A Medical DAY WITH Branch MEALS CARVEDILOL 2020-0 Yes [id number] TAKE 1 U nivers 12.5 mg 9-11 TABLET BY ity of tablet 00:00: MOUTH 00 TWICE A Medical DAY WITH Branch MEALS CARVEDILOL 2020-0 Yes [id number] TAKE 1 U nivers 12.5 mg 9-11 TABLET BY ity of tablet 00:00: MOUTH [place] 00 TWICE A Medical DAY WITH Branch MEALS CARVEDILOL 2020-0 Yes [id number] TAKE 1 U nivers 12.5 mg 9-11 TABLET BY ity of tablet 00:00: MOUTH [place] 00 TWICE A Medical DAY WITH Branch MEALS CARVEDILOL 2020-0 Yes [id number] TAKE 1 U nivers 12.5 mg 9-11 TABLET BY ity of tablet 00:00: MOUTH [place] 00 TWICE A Medical DAY WITH Branch MEALS CARVEDILOL 2020-0 Yes [id number] TAKE 1 U nivers 12.5 mg 9-11 TABLET BY ity of tablet 00:00: MOUTH [place] 00 TWICE A Medical DAY WITH Branch MEALS CARVEDILOL 2020-0 Yes [id number] TAKE 1 U nivers 12.5 mg 9-11 TABLET BY ity of tablet 00:00: MOUTH [place] 00 TWICE A Medical DAY WITH Branch MEALS CARVEDILOL 2020-0 2020- No [id number] TAKE 1 [facility] 12.5 mg 9-11 12-18 TABLET BY ity of tablet 00:00: 00:00 MOUTH [place] 00 :00 TWICE A Medical DAY WITH Branch MEALS HYDROCHLORO 2020-0 Yes [id number] TAKE 1 [facility] THIAZIDE 7-27 CAPSULE BY ity o f 12.5 mg 00:00: MOUTH [place] capsule 00 EVERY DAY Medical Branch HYDROCHLORO 2020-0 Yes [id number] TAKE 1 [facility] THIAZIDE 7-27 CAPSULE BY ity o f 12.5 mg 00:00: MOUTH [place] capsule 00 EVERY DAY Medical Branch HYDROCHLORO 2020-0 Yes [id number] TAKE 1 [facility] THIAZIDE 7-27 CAPSULE BY ity o f 12.5 mg 00:00: MOUTH [place] capsule 00 EVERY DAY Medical Branch HYDROCHLORO 2020-0 Yes [id number] TAKE 1 [facility] THIAZIDE 7-27 CAPSULE BY ity o f 12.5 mg 00:00: MOUTH [place] capsule 00 EVERY DAY Medical Branch HYDROCHLORO 2020-0 2020- No [id number] TAKE 1 [facility] THIAZIDE 7-27 10-27 CAPSULE BY ity of 12.5 mg 00:00: 00:00 MOUTH [place] capsule 00 :00 EVERY DAY Medical Branch HYDROCHLORO 2020-0 2020- No [id number] TAKE 1 [facility] THIAZIDE 7-27 10-27 CAPSULE BY ity of 12.5 mg 00:00: 00:00 MOUTH [place] capsule 00 :00 EVERY DAY Medical Branch ATORVASTATI 2020-0 Yes TAKE 1 [facility] ers N 10 mg 7-15 TABLET BY ity of tablet 00:00: MOUTH 00 EVERYDAY Medical AT BEDTIME Branch ATORVASTATI 2020-0 Yes TAKE 1 [facility] ers N 10 mg 7-15 TABLET BY ity of tablet 00:00: 00 EVERYDAY Medical AT BEDTIME Branch ATORVASTATI 2020-0 Yes TAKE 1 [facility] ers N 10 mg 7-15 TABLET BY ity of tablet 00:00: MOUTH 00 EVERYDAY Medical AT BEDTIME Branch ATORVASTATI 2020-0 Yes TAKE 1 [facility] ers N 10 mg 7-15 TABLET BY ity of tablet 00:00: [facility] 00 EVERYDAY Medical AT BEDTIME Branch ATORVASTATI 2020-0 Yes TAKE 1 [facility] ers N 10 mg 7-15 TABLET BY ity of tablet 00:00: [facility] 00 EVERYDAY Medical AT BEDTIME Branch ATORVASTATI 2020-0 Yes TAKE 1 [facility] ers N 10 mg 7-15 TABLET BY ity of tablet 00:00: [facility] 00 EVERYDAY Medical AT BEDTIME Branch ATORVASTATI 2020-0 Yes TAKE 1 [facility] ers N 10 mg 7-15 TABLET BY ity of tablet 00:00: [facility] 00 EVERYDAY Medical AT BEDTIME Branch ATORVASTATI 2020-0 Yes TAKE 1 [facility] ers N 10 mg 7-15 TABLET BY ity of tablet 00:00: [facility] 00 EVERYDAY Medical AT BEDTIME Branch ATORVASTATI 2020-0 Yes TAKE 1 [facility] ers N 10 mg 7-15 TABLET BY ity of tablet 00:00: [facility] 00 EVERYDAY Medical AT BEDTIME Branch ATORVASTATI 2020-0 2020- No TAKE 1 [facility] vers N 10 mg 7-15 11-05 TABLET BY ity of tablet 00:00: 00:00 [facility] [place] 00 :00 EVERYDAY Medical AT BEDTIME Branch ATORVASTATI 2020-0 2020- No TAKE 1 [facility] vers N 10 mg 7-15 11-05 TABLET BY ity of tablet 00:00: 00:00 [facility] [place] 00 :00 EVERYDAY Medical AT BEDTIME Branch ATORVASTATI 2020-0 Yes TAKE 1 [facility] ers N 10 mg 6-23 TABLET BY ity of tablet 00:00: MOUTH 00 EVERYDAY Medical AT BEDTIME Branch ATORVASTATI 2020-0 2020- No TAKE 1 [facility] vers N 10 mg 6-23 07-15 TABLET BY ity of tablet 00:00: 00:00 MOUTH [place] 00 :00 EVERYDAY Medical AT BEDTIME Branch METFORMIN 2020-0 Yes [id number] TAKE 1 U nivers 1,000 mg 6-22 TABLET BY ity of tablet 00:00: MOUTH 00 TWICE A Medical DAY WITH Branch MEALS METFORMIN 2020-0 Yes [id number] TAKE 1 U nivers 1,000 mg 6-22 TABLET BY ity of tablet 00:00: MOUTH 00 TWICE A Medical DAY WITH Branch MEALS METFORMIN 2020-0 Yes [id number] TAKE 1 [facility] nivers 1,000 mg 6-22 TABLET BY ity of tablet 00:00: MOUTH 00 TWICE A Medical DAY WITH Branch MEALS METFORMIN 2020-0 Yes [id number] TAKE 1 [facility] nivers 1,000 mg 6-22 TABLET BY ity of tablet 00:00: MOUTH 00 TWICE A Medical DAY WITH Branch MEALS METFORMIN 2020-0 Yes [id number] TAKE 1 [facility] nivers 1,000 mg 6-22 TABLET BY ity of tablet 00:00: MOUTH 00 TWICE A Medical DAY WITH Branch MEALS METFORMIN 2020-0 Yes [id number] TAKE 1 [facility] nivers 1,000 mg 6-22 TABLET BY ity of tablet 00:00: MOUTH 00 TWICE A Medical DAY WITH Branch MEALS METFORMIN 2020-0 Yes [id number] TAKE 1 [facility] nivers 1,000 mg 6-22 TABLET BY ity of tablet 00:00: MOUTH 00 TWICE A Medical DAY WITH Branch MEALS METFORMIN 2020-0 Yes [id number] TAKE 1 [facility] nivers 1,000 mg 6-22 TABLET BY ity of tablet 00:00: MOUTH TWICE A Medical DAY WITH Branch MEALS METFORMIN 2020-0 Yes [id number] TAKE 1 [facility]ivers 1,000 mg 6-22 TABLET BY ity of tablet 00:00: MOUTH 00 TWICE A Medical DAY WITH Branch MEALS METFORMIN 2020-0 Yes [id number] TAKE 1 [facility]ivers 1,000 mg 6-22 TABLET BY ity of tablet 00:00: MOUTH 00 TWICE A Medical DAY WITH Branch MEALS METFORMIN 2020-0 Yes [id number] TAKE 1 [facility]ivers 1,000 mg 6-22 TABLET BY ity of tablet 00:00: MOUTH 00 TWICE A Medical DAY WITH Branch MEALS METFORMIN 2020-0 Yes [id number] TAKE 1 [facility] nivers 1,000 mg 6-22 TABLET BY ity of tablet 00:00: MOUTH [place] 00 TWICE A Medical DAY WITH Branch MEALS METFORMIN 2020-0 Yes [id number] TAKE 1 [facility] nivers 1,000 mg 6-22 TABLET BY ity of tablet 00:00: MOUTH [place] 00 TWICE A Medical DAY WITH Branch MEALS METFORMIN 2020-0 Yes [id number] TAKE 1 U nivers 1,000 mg 6-22 TABLET BY ity of tablet 00:00: MOUTH [place] 00 TWICE A Medical DAY WITH Branch MEALS METFORMIN 2020-0 Yes [id number] TAKE 1 U nivers 1,000 mg 6-22 TABLET BY ity of tablet 00:00: MOUTH [place] 00 TWICE A Medical DAY WITH Branch MEALS METFORMIN 2020-0 Yes [id number] TAKE 1 [facility] nivers 1,000 mg 6-22 TABLET BY it[facility] of tablet 00:00: MOUTH [place] 00 TWICE A Medical DAY WITH Branch MEALS METFORMIN 2020-0 Yes [id number] TAKE 1 [facility] nivers 1,000 mg 6-22 TABLET BY ity of tablet 00:00: MOUTH [place] 00 TWICE A Medical DAY WITH Branch MEALS METFORMIN 2020-0 2020- No [id number] TAKE 1 [facility] 1,000 mg 6-22 12-16 TABLET BY ity o f tablet 00:00: 00:00 MOUTH [place] 00 :00 TWICE A Medical DAY WITH Branch MEALS ATORVASTATI 2020-0 Yes TAKE 1 [facility] ers N 10 mg 5-26 TABLET BY it[facility] of tablet 00:00: MOUTH [place] 00 EVERYDAY Medical AT BEDTIME Branch ATORVASTATI 2020-0 Yes TAKE 1 [facility] ers N 10 mg 5-26 TABLET BY ity of tablet 00:00: MOUTH [place] 00 EVERYDAY Medical AT BEDTIME Branch ATORVASTATI 2020-0 2020- No TAKE 1 [facility] vers N 10 mg 5-26 06-23 TABLET BY ity of tablet 00:00: 00:00 MOUTH [place] 00 :00 EVERYDAY Medical AT BEDTIME Branch HYDROCHLORO 2020-0 Yes [id number] TAKE 1 [facility] THIAZIDE 5-05 CAPSULE BY ity o f 12.5 mg 00:00: MOUTH [place] capsule 00 EVERY DAY Medical Branch HYDROCHLORO 2020-0 Yes [id number] TAKE 1 [facility] THIAZIDE 5-05 CAPSULE BY ity o f 12.5 mg 00:00: MOUTH [place] capsule 00 EVERY DAY Medical Branch HYDROCHLORO 2020-0 Yes [id number] TAKE 1 [facility] THIAZIDE 5-05 CAPSULE BY ity o f 12.5 mg 00:00: MOUTH [place] capsule 00 EVERY DAY Medical Branch HYDROCHLORO 2020-0 Yes [id number] TAKE 1 [facility] THIAZIDE 5-05 CAPSULE BY ity o f 12.5 mg 00:00: MOUTH [place] capsule 00 EVERY DAY Medical Branch HYDROCHLORO 2020-0 Yes [id number] TAKE 1 [facility] THIAZIDE 5-05 CAPSULE BY ity o f 12.5 mg 00:00: MOUTH [place] capsule 00 EVERY DAY Medical Branch HYDROCHLORO 2020-0 Yes [id number] TAKE 1 [facility] THIAZIDE 5-05 CAPSULE BY ity o f 12.5 mg 00:00: MOUTH [place] capsule 00 EVERY DAY Medical Branch HYDROCHLORO 2020-0 2020- No [id number] TAKE 1 [facility] THIAZIDE 5-05 07-27 CAPSULE BY ity of 12.5 mg 00:00: 00:00 MOUTH [place] capsule 00 :00 EVERY DAY Medical Branch rosuvastati 2020-0 2020- No 10mg Take 10 mg [facility] n 10 mg 4-28 04-28 by mouth ity of tablet 17:06: 00:00 at [place] 07 :00 bedtime. Medical Branch ATORVASTATI 2020-0 Yes TAKE 1 [facility] ers N 10 mg 4-28 TABLET BY ity of tablet 00:00: MOUTH [place] 00 EVERYDAY Medical AT BEDTIME Branch ATORVASTATI 2020-0 Yes TAKE 1 [facility] ers N 10 mg 4-28 TABLET BY ity of tablet 00:00: MOUTH [place] 00 EVERYDAY Medical AT BEDTIME Branch ATORVASTATI 2020-0 Yes TAKE 1 [facility] ers N 10 mg 4-28 TABLET BY ity of tablet 00:00: MOUTH [place] 00 EVERYDAY Medical AT BEDTIME Branch ATORVASTATI 2020-0 2020- No TAKE 1 [facility] vers N 10 mg 4-28 05-26 TABLET BY ity of tablet 00:00: 00:00 MOUTH [place] 00 :00 EVERYDAY Medical AT BEDTIME Branch HYDROCHLORO 2020-0 Yes [id number] TAKE 1 [facility] THIAZIDE 4-10 CAPSULE BY ity o f 12.5 mg 00:00: MOUTH [place] capsule 00 EVERY DAY Medical Branch HYDROCHLORO 2020-0 Yes [id number] TAKE 1 [facility] THIAZIDE 4-10 CAPSULE BY ity o f 12.5 mg 00:00: MOUTH [place] capsule 00 EVERY DAY Medical Branch HYDROCHLORO 2020-0 2020- No [id number] TAKE 1 [facility] THIAZIDE 4-10 05-05 CAPSULE BY ity of 12.5 mg 00:00: 00:00 MOUTH [place] capsule 00 :00 EVERY DAY Medical Branch ATORVASTATI 2019-0 Yes TAKE 1 [facility] ers N 10 mg 2-24 TABLET BY ity of tablet 00:00: MOUTH [place] 00 EVERYDAY Medical AT BEDTIME Branch ATORVASTATI 2019-0 Yes TAKE 1 [facility] ers N 10 mg 2-24 TABLET BY ity of tablet 00:00: MOUTH [place] 00 EVERYDAY Medical AT BEDTIME Branch ATORVASTATI 2019-0 Yes TAKE 1 [facility] ers N 10 mg 2-24 TABLET BY ity of tablet 00:00: MOUTH [place] 00 EVERYDAY Medical AT BEDTIME Branch ATORVASTATI 0 2020- No TAKE 1 [facility] vers N 10 mg 2-24 - TABLET BY ity of tablet 00:00: 00:00 MOUTH [place] 00 :00 EVERYDAY Medical AT BEDTIME Branch atorvastati 0 Yes 10mg Take 1 [facility] ers n 10 mg 1-27 tablet by ity of tablet 00:00: mouth at [place] 00 bedtime. Medical Branch atorvastati 0 2020- No 10mg Take 1 Uni vers n 10 mg 1-27 -24 tablet by ity of tablet 00:00: 00:00 mouth at [place] 00 :00 bedtime. Medical Branch ATORVASTATI 2018-07 2020- No TAKE 1 [facility] vers N 10 mg 2-31 -27 TABLET BY ity of tablet 00:00: 00:00 MOUTH [place] 00 :00 EVERYDAY Medical AT BEDTIME Branch SITagliptin 2018-07 Yes [id number] 100mg Take 1 [facility] 100 mg 2-05 tablet by ity of tablet 00:00: mouth [place] 00 daily. Medical Branch hydroCHLORO 2019- Yes [id number] 12.5mg Take 1 [facility] thiazide 2-05 capsule by ity o f 12.5 mg 00:00: mouth [place] capsule 00 daily. Medical Branch SITagliptin 2019 Yes [id number] 100mg Take 1 [facility] 100 mg 2-05 tablet by ity of tablet 00:00: mouth [place] 00 daily. Medical Branch hydroCHLORO 2018- Yes [id number] 12.5mg Take 1 [facility] thiazide 2-05 capsule by ity o f 12.5 mg 00:00: mouth [place] capsule 00 daily. Medical Branch SITagliptin 2019- Yes [id number] 100mg Take 1 [facility] 100 mg 2-05 tablet by ity of tablet 00:00: mouth [place] 00 daily. Medical Branch hydroCHLORO 2019- Yes [id number] 12.5mg Take 1 [facility] thiazide 2-05 capsule by ity o f 12.5 mg 00:00: mouth [place] capsule 00 daily. [facility] Branch SITagliptin 2018-07 Yes [id number] 100mg Take 1 [facility] 100 mg 2-05 tablet by ity of tablet 00:00: mouth [place] 00 daily. [facility] SITagliptin 2018-07 Yes [id number] 100mg Take 1 [facility] 100 mg 2-05 tablet by ity of tablet 00:00: mouth [place] 00 daily. [facility] SITagliptin 2018-07 Yes [id number] 100mg Take 1 [facility] 100 mg 2-05 tablet by ity of tablet 00:00: mouth [place] 00 daily. [facility] SITagliptin 2018-07 Yes [id number] 100mg Take 1 [facility] 100 mg 2-05 tablet by ity of tablet 00:00: mouth [place] 00 daily. [facility] SITagliptin 2018-07 Yes [id number] 100mg Take 1 [facility] 100 mg 2-05 tablet by ity of tablet 00:00: mouth [place] 00 daily. [facility] SITagliptin 2018-07 Yes [id number] 100mg Take 1 [facility] 100 mg 2-05 tablet by ity of tablet 00:00: mouth [place] 00 daily. [facility] SITagliptin 2018-07 Yes [id number] 100mg Take 1 [facility] 100 mg 2-05 tablet by ity of tablet 00:00: mouth [place] 00 daily. [facility] SITagliptin 2018-07 Yes [id number] 100mg Take 1 [facility] 100 mg 2-05 tablet by ity of tablet 00:00: mouth [place] 00 daily. [facility] SITagliptin 2018-07 Yes [id number] 100mg Take 1 [facility] 100 mg 2-05 tablet by ity of tablet 00:00: mouth [place] 00 daily. [facility] SITagliptin 2018-07 Yes [id number] 100mg Take 1 [facility] 100 mg 2-05 tablet by ity of tablet 00:00: mouth [place] 00 daily. [facility] SITagliptin 2018-07 Yes [id number] 100mg Take 1 [facility] 100 mg 2-05 tablet by ity of tablet 00:00: mouth [place] 00 daily. [facility] SITagliptin 2018-07 Yes [id number] 100mg Take 1 [facility] 100 mg 2-05 tablet by ity of tablet 00:00: mouth [place] 00 daily. [facility] SITagliptin 2018-07 Yes [id number] 100mg Take 1 [facility] 100 mg 2-05 tablet by ity of tablet 00:00: mouth [place] 00 daily. [facility] SITagliptin 2018-07 Yes [id number] 100mg Take 1 [facility] 100 mg 2-05 tablet by ity of tablet 00:00: mouth [place] 00 daily. [facility] SITagliptin 2018-07 Yes [id number] 100mg Take 1 [facility] 100 mg 2-05 tablet by ity of tablet 00:00: mouth [place] 00 daily. [facility] SITagliptin 2018-07 Yes [id number] 100mg Take 1 [facility] 100 mg 2-05 tablet by ity of tablet 00:00: mouth [place] 00 daily. [facility] SITagliptin 2018-07 Yes [id number] 100mg Take 1 [facility] 100 mg 2-05 tablet by ity of tablet 00:00: mouth [place] 00 daily. [facility] SITagliptin 2018-07 Yes [id number] 100mg Take 1 [facility] 100 mg 2-05 tablet by ity of tablet 00:00: mouth [place] 00 daily. [facility] SITagliptin 2018-07 Yes [id number] 100mg Take 1 [facility] 100 mg 2-05 tablet by ity of tablet 00:00: mouth [place] 00 daily. [facility] SITagliptin 2018-07 Yes [id number] 100mg Take 1 [facility] 100 mg 2-05 tablet by ity of tablet 00:00: mouth [place] 00 daily. [facility] SITagliptin 2018-07 Yes [id number] 100mg Take 1 [facility] 100 mg 2-05 tablet by ity of tablet 00:00: mouth [place] 00 daily. [facility] SITagliptin 2018-07 Yes [id number] 100mg Take 1 [facility] 100 mg 2-05 tablet by ity of tablet 00:00: mouth [place] 00 daily. [facility] SITagliptin 2018-07 Yes [id number] 100mg Take 1 [facility] 100 mg 2-05 tablet by ity of tablet 00:00: mouth [place] 00 daily. [facility] SITagliptin 2018-07 Yes [id number] 100mg Take 1 [facility] 100 mg 2-05 tablet by ity of tablet 00:00: mouth [place] 00 daily. [facility] SITagliptin 2018-07 Yes [id number] 100mg Take 1 [facility] 100 mg 2-05 tablet by ity of tablet 00:00: mouth [place] 00 daily. [facility] SITagliptin 2018-07 Yes [id number] 100mg Take 1 [facility] 100 mg 2-05 tablet by ity of tablet 00:00: mouth [place] 00 daily. [facility] SITagliptin 2018-07 Yes [id number] 100mg Take 1 [facility] 100 mg 2-05 tablet by ity of tablet 00:00: mouth [place] 00 daily. [facility] SITagliptin 2018-07 Yes [id number] 100mg Take 1 [facility] 100 mg 2-05 tablet by ity of tablet 00:00: mouth [place] 00 daily. [facility] SITagliptin 2018-07 Yes [id number] 100mg Take 1 [facility] 100 mg 2-05 tablet by ity of tablet 00:00: mouth [place] 00 daily. [facility] SITagliptin 2018-07 Yes [id number] 100mg Take 1 [facility] 100 mg 2-05 tablet by ity of tablet 00:00: mouth [place] 00 daily. [facility] SITagliptin 2018-07 Yes [id number] 100mg Take 1 [facility] 100 mg 2-05 tablet by ity of tablet 00:00: mouth [place] 00 daily. [facility] SITagliptin 2018-07 Yes [id number] 100mg Take 1 [facility] 100 mg 2-05 tablet by ity of tablet 00:00: mouth [place] 00 daily. [facility] SITagliptin 2018-07 Yes [id number] 100mg Take 1 [facility] 100 mg 2-05 tablet by ity of tablet 00:00: mouth [place] 00 daily. [facility] SITagliptin 2018-07 Yes [id number] 100mg Take 1 [facility] 100 mg 2-05 tablet by ity of tablet 00:00: mouth [place] 00 daily. [facility] SITagliptin 2018-07 Yes [id number] 100mg Take 1 [facility] 100 mg 2-05 tablet by ity of tablet 00:00: mouth [place] 00 daily. [facility] SITagliptin 2018-07 Yes [id number] 100mg Take 1 [facility] 100 mg 2-05 tablet by ity of tablet 00:00: mouth [place] 00 daily. [facility] SITagliptin 2018-07 Yes [id number] 100mg Take 1 [facility] 100 mg 2-05 tablet by ity of tablet 00:00: mouth [place] 00 daily. [facility] SITagliptin 2018-07 Yes [id number] 100mg Take 1 [facility] 100 mg 2-05 tablet by ity of tablet 00:00: mouth [place] 00 daily. [facility] SITagliptin 2018-07 Yes [id number] 100mg Take 1 [facility] 100 mg 2-05 tablet by ity of tablet 00:00: mouth [place] 00 daily. [facility] SITagliptin 2018-07 Yes [id number] 100mg Take 1 [facility] 100 mg 2-05 tablet by ity of tablet 00:00: mouth [place] 00 daily. [facility] SITagliptin 2018-07 Yes [id number] 100mg Take 1 [facility] 100 mg 2-05 tablet by ity of tablet 00:00: mouth [place] 00 daily. [facility] SITagliptin 2018-07 Yes [id number] 100mg Take 1 [facility] 100 mg 2-05 tablet by ity of tablet 00:00: mouth [place] 00 daily. [facility] SITagliptin 2018-07 Yes [id number] 100mg Take 1 [facility] 100 mg 2-05 tablet by ity of tablet 00:00: mouth [place] 00 daily. [facility] SITagliptin 2018-07 Yes [id number] 100mg Take 1 [facility] 100 mg 2-05 tablet by ity of tablet 00:00: mouth [place] 00 daily. [facility] SITagliptin 2018-07 Yes [id number] 100mg Take 1 [facility] 100 mg 2-05 tablet by ity of tablet 00:00: mouth [place] 00 daily. [facility] SITagliptin 2018-07 Yes [id number] 100mg Take 1 [facility] 100 mg 2-05 tablet by ity of tablet 00:00: mouth [place] 00 daily. [facility] SITagliptin 2018-07 Yes [id number] 100mg Take 1 [facility] 100 mg 2-05 tablet by ity of tablet 00:00: mouth [place] 00 daily. [facility] SITagliptin 2018-07 Yes [id number] 100mg Take 1 [facility] 100 mg 2-05 tablet by ity of tablet 00:00: mouth [place] 00 daily. [facility] SITagliptin 2018-07 Yes [id number] 100mg Take 1 [facility] 100 mg 2-05 tablet by ity of tablet 00:00: mouth [place] 00 daily. [facility] hydroCHLORO 2018-07 2020- No [id number] 12.5mg Take 1 [facility] thiazide 2-05 04-10 capsule by ity of 12.5 mg 00:00: 00:00 mouth [place] capsule 00 :00 daily. [facility] rosuvastati 2018-07 Yes 10mg Take 10 mg Univers n 10 mg 2-04 by mouth ity of tablet 22:00: at [place] [address] bedtime. [facility] rosuvastati 2018-07 Yes 10mg Take 10 mg Univers n 10 mg 2-04 by mouth ity of tablet 22:00: at [place] [address] bedtime. [facility] rosuvastati 2018-07 Yes 10mg Take 10 mg [facility] n 10 mg 2-04 by mouth ity of tablet 22:00: at [place] [address] bedtime. Medical Branch rosuvastati 2018-07 Yes 10mg Take 10 mg [facility] n 10 mg 2-04 by mouth ity of tablet 22:00: at [place] [address] bedtime. Medical Branch carvedilol 2018-07 Yes [id number] TAKE 1 U nivers 12.5 mg 2-04 TABLET BY ity of tablet 00:00: MOUTH [place] 00 TWICE A Medical DAY WITH Branch MEALS metFORMIN 2018-07 Yes [id number] 1000mg Take 1 [facility] 1,000 mg 2-04 tablet by ity of tablet 00:00: mouth 2 (two) Medical times Branch daily with meals. carvedilol 2018-07 Yes [id number] TAKE 1 U nivers 12.5 mg 2-04 TABLET BY ity of tablet 00:00: MOUTH 00 TWICE A Medical DAY WITH Branch MEALS metFORMIN 2018-07 Yes [id number] 1000mg Take 1 [facility] 1,000 mg 2-04 tablet by ity of tablet 00:00: mouth (two) Medical times Branch daily with meals. carvedilol 2018-07 Yes [id number] TAKE 1 U nivers 12.5 mg 2-04 TABLET BY ity of tablet 00:00: MOUTH 00 TWICE A Medical DAY WITH Branch MEALS metFORMIN 2018-07 Yes [id number] 1000mg Take 1 [facility] 1,000 mg 2-04 tablet by ity of tablet 00:00: mouth (two) Medical times Branch daily with meals. carvedilol 2018-07 Yes [id number] TAKE 1 U nivers 12.5 mg 2-04 TABLET BY ity of tablet 00:00: MOUTH [place] 00 TWICE A Medical DAY WITH Branch MEALS metFORMIN 2018-07 Yes [id number] 1000mg Take 1 [facility] 1,000 mg 2-04 tablet by ity of tablet 00:00: mouth 2 (two) Medical times Branch daily with meals. carvedilol 2018-07 Yes [id number] TAKE 1 U nivers 12.5 mg 2-04 TABLET BY ity of tablet 00:00: MOUTH [place] 00 TWICE A Medical DAY WITH Branch MEALS metFORMIN 2018-07 Yes [id number] 1000mg Take 1 [facility] 1,000 mg 2-04 tablet by ity of tablet 00:00: mouth 2 (two) Medical times Branch daily with meals. carvedilol 2018-07 Yes [id number] TAKE 1 U nivers 12.5 mg 2-04 TABLET BY ity of tablet 00:00: MOUTH [place] 00 TWICE A Medical DAY WITH Branch MEALS metFORMIN 2018-07 Yes [id number] 1000mg Take 1 [facility] 1,000 mg 2-04 tablet by ity of tablet 00:00: mouth 2 00 (two) Medical times Branch daily with meals. carvedilol 2018-07 Yes [id number] TAKE 1 U nivers 12.5 mg 2-04 TABLET BY ity of tablet 00:00: MOUTH [place] 00 TWICE A Medical DAY WITH Branch MEALS metFORMIN 2018-07 Yes [id number] 1000mg Take 1 [facility] 1,000 mg 2-04 tablet by ity of tablet 00:00: mouth 2 00 (two) Medical times Branch daily with meals. carvedilol 2018-07 Yes [id number] TAKE 1 U nivers 12.5 mg 2-04 TABLET BY ity of tablet 00:00: MOUTH [place] 00 TWICE A Medical DAY WITH Branch MEALS metFORMIN 2018-07 Yes [id number] 1000mg Take 1 [facility] 1,000 mg 2-04 tablet by ity of tablet 00:00: mouth 2 (two) Medical times Branch daily with meals. carvedilol 2018-07 Yes [id number] TAKE 1 U nivers 12.5 mg 2-04 TABLET BY ity of tablet 00:00: MOUTH [place] 00 TWICE A Medical DAY WITH Branch MEALS carvedilol 2018-07 Yes [id number] TAKE 1 U nivers 12.5 mg 2-04 TABLET BY ity of tablet 00:00: MOUTH 00 TWICE A Medical DAY WITH Branch MEALS carvedilol 2018-07 Yes [id number] TAKE 1 U nivers 12.5 mg 2-04 TABLET BY ity of tablet 00:00: MOUTH [place] 00 TWICE A Medical DAY WITH Branch MEALS carvedilol 2018-07 Yes [id number] TAKE 1 U nivers 12.5 mg 2-04 TABLET BY ity of tablet 00:00: MOUTH [place] 00 TWICE A Medical DAY WITH Branch MEALS carvedilol 2018-07 2020- No [id number] TAKE 1 [facility] 12.5 mg 2-04 - TABLET BY ity of tablet 00:00: 00:00 MOUTH [place] 00 :00 TWICE A Medical DAY WITH Branch MEALS metFORMIN 2018-07 2020- No [id number] 1000mg Take 1 [facility] 1,000 mg 2-04 - tablet by ity o f tablet 00:00: 00:00 mouth 2 00 :00 (two) Medical times Branch daily with meals. LISINOPRIL 2019- Yes [id number] TAKE 1 U nivers 20 mg 0-28 TABLET BY ity of tablet 00:00: MOUTH TWICE A Medical DAY Branch LISINOPRIL 2019- Yes [id number] TAKE 1 U nivers 20 mg 0-28 TABLET BY ity of tablet 00:00: MOUTH TWICE A Medical DAY Branch LISINOPRIL 2019- Yes [id number] TAKE 1 U nivers 20 mg 0-28 TABLET BY ity of tablet 00:00: TWICE A Medical DAY Branch LISINOPRIL 2019- Yes [id number] TAKE 1 U nivers 20 mg 0-28 TABLET BY ity of tablet 00:00: TWICE A Medical DAY Branch LISINOPRIL 2019- Yes [id number] TAKE 1 U nivers 20 mg 0-28 TABLET BY ity of tablet 00:00: TWICE A Medical DAY Branch LISINOPRIL 2019- Yes [id number] TAKE 1 U nivers 20 mg 0-28 TABLET BY ity of tablet 00:00: TWICE A Medical DAY Branch LISINOPRIL 2019- Yes [id number] TAKE 1 [facility] nivers 20 mg 0-28 TABLET BY ity of tablet 00:00: [facility] TWICE A Medical DAY Branch LISINOPRIL 2019- Yes [id number] TAKE 1 U nivers 20 mg 0-28 TABLET BY ity of tablet 00:00: [facility] TWICE A Medical DAY Branch LISINOPRIL 2019-1 Yes [id number] TAKE 1 U nivers 20 mg 0-28 TABLET BY ity of tablet 00:00: TWICE A Medical DAY Branch LISINOPRIL 2019-1 Yes [id number] TAKE 1 U nivers 20 mg 0-28 TABLET BY ity of tablet 00:00: TWICE A Medical DAY Branch LISINOPRIL 2019- Yes [id number] TAKE 1 U nivers 20 mg 0-28 TABLET BY ity of tablet 00:00: TWICE A Medical DAY Branch LISINOPRIL 2019-1 Yes [id number] TAKE 1 U nivers 20 mg 0-28 TABLET BY ity of tablet 00:00: MOUTH [place] 00 TWICE A Medical DAY Branch LISINOPRIL 2018-07 Yes [id number] TAKE 1 U nivers 20 mg 0-28 TABLET BY ity of tablet 00:00: MOUTH 00 TWICE A Medical DAY Branch LISINOPRIL 2018-07 Yes [id number] TAKE 1 [facility] nivers 20 mg 0-28 TABLET BY ity of tablet 00:00: MOUTH 00 TWICE A Medical DAY Branch LISINOPRIL 2018-07 Yes [id number] TAKE 1 U nivers 20 mg 0-28 TABLET BY ity of tablet 00:00: MOUTH 00 TWICE A Medical DAY Branch LISINOPRIL 2018-07 Yes [id number] TAKE 1 [facility] nivers 20 mg 0-28 TABLET BY ity of tablet 00:00: MOUTH 00 TWICE A Medical DAY Branch LISINOPRIL 2018-07 Yes [id number] TAKE 1 U nivers 20 mg 0-28 TABLET BY ity of tablet 00:00: MOUTH 00 TWICE A Medical DAY Branch LISINOPRIL 2018-07 Yes [id number] TAKE 1 [facility] nivers 20 mg 0-28 TABLET BY ity of tablet 00:00: MOUTH TWICE A Medical DAY Branch LISINOPRIL 2018-07 Yes [id number] TAKE 1 [facility] nivers 20 mg 0-28 TABLET BY ity of tablet 00:00: MOUTH 00 TWICE A Medical DAY Branch LISINOPRIL 2018-07 2020- No [id number] TAKE 1 [facility] 20 mg 0-28 11-05 TABLET BY ity of tablet 00:00: 00:00 MOUTH [place] 00 :00 TWICE A Medical DAY Branch LISINOPRIL 2018- 2020- No [id number] TAKE 1 [facility] 20 mg 0-28 11-05 TABLET BY ity of tablet 00:00: 00:00 MOUTH [place] 00 :00 TWICE A Medical DAY Branch atorvastati Yes 10mg Take 1 [facility] ers n 10 mg 9-06 tablet by ity of tablet 00:00: mouth at [place] 00 bedtime. Medical Branch metFORMIN 2018- Yes 1000mg Take 1 Univ ers 1,000 mg 8-23 tablet by ity of tablet 00:00: mouth [place] (two) Medical times Branch daily with meals. metFORMIN Yes 1000mg Take 1 Univ ers 1,000 mg 8-23 tablet by ity of tablet 00:00: mouth 2 [place] (two) Medical times Branch daily with meals. atorvastati Yes 10mg Take 1 [facility] ers n 10 mg 8-09 tablet by ity of tablet 00:00: mouth at [place] [address] bedtime. Medical Branch atorvastati Yes 10mg Take 1 [facility] ers n 10 mg 8-09 tablet by ity of tablet 00:00: mouth at [place] 00 bedtime. Medical Branch atorvastati 2019- No 10mg Take 1 Uni vers n 10 mg 8-09 09-06 tablet by ity of tablet 00:00: 00:00 mouth at [place] 00 :00 bedtime. Medical Branch metFORMIN Yes 1000mg Take 1 [facility] ers 1,000 mg 7-29 tablet by ity of tablet 00:00: mouth 2 [place] (two) Medical times Branch daily with meals. metFORMIN Yes 1000mg Take 1 Univ ers 1,000 mg 7-29 tablet by ity of tablet 00:00: mouth 2 [place] (two) Medical times Branch daily with meals. metFORMIN 2019- No 1000mg Take 1 Uni vers 1,000 mg 7-29 08- tablet by ity o f tablet 00:00: 00:00 mouth 2 [place] 00 :00 (two) Medical times Branch daily with meals. atorvastati Yes 10mg Take 1 Univ ers n 10 mg 7- tablet by ity of tablet 00:00: mouth at [place] 00 bedtime. Medical Branch atorvastati 2019- No 10mg Take 1 [facility] vers n 10 mg 7- 08-09 tablet by ity of tablet 00:00: 00:00 mouth at [place] 00 :00 bedtime. Medical Branch lisinopril Yes [id number] 20mg Take 1 U nivers 20 mg 5-10 tablet by ity of tablet 00:00: mouth 2 [place] (two) Medical times Branch daily. carvedilol Yes 12.5mg Take 1 Uni vers 12.5 mg 5-10 tablet by ity of tablet 00:00: mouth 2 [place] (two) Medical times Branch daily with meals. lisinopril Yes [id number] 20mg Take 1 U nivers 20 mg 5-10 tablet by ity of tablet 00:00: mouth 2 [place] (two) Medical times Branch daily. carvedilol 2018- Yes 12.5mg Take 1 Uni vers 12.5 mg 5-10 tablet by ity of tablet 00:00: mouth 2 (two) Medical times Branch daily with meals. lisinopril 2019-0 Yes [id number] 20mg Take 1 U nivers 20 mg 5-10 tablet by ity of tablet 00:00: mouth 2 (two) Medical times Branch daily. carvedilol 2019-0 Yes 12.5mg Take 1 Uni vers 12.5 mg 5-10 tablet by ity of tablet 00:00: mouth (two) Medical times Branch daily with meals. lisinopril 2019-0 Yes [id number] 20mg Take 1 U nivers 20 mg 5-10 tablet by ity of tablet 00:00: mouth 2 (two) Medical times Branch daily. carvedilol 2019-0 Yes 12.5mg Take 1 [facility] vers 12.5 mg 5-10 tablet by ity of tablet 00:00: mouth (two) Medical times Branch daily with meals. amoxicillin 2018- Yes [id number] 1{tbl} Take 1 [facility] -clavulanat 1-24 tablet by ity of e 00:00: mouth 2 (AUGMENTIN) 00 (two) Medical 875-125 mg times Branch per tablet daily. codeine-gua 2019-0 Yes [id number] 10mL Take 10 mL [facility] ifenesin 1-24 by mouth ity of (CHERATUSSI 00:00: every 6 [place] as N AC) 00 (six) Medical 10-100 mg/5 hours as Bran ch mL solution needed for Cough. amoxicillin 2018-0 Yes [id number] 1{tbl} Take 1 [facility] -clavulanat 1-24 tablet by ity of e 00:00: mouth 2 [place] (AUGMENTIN) 00 (two) Medical 875-125 mg times Branch per tablet daily. codeine-gua 2019-0 Yes [id number] 10mL Take 10 mL [facility] ifenesin 1-24 by mouth ity of (CHERATUSSI 00:00: every 6 [place] as N AC) 00 (six) Medical 10-100 mg/5 hours as Bran ch mL solution needed for Cough. amoxicillin 2019-0 Yes [id number] 1{tbl} Take 1 [facility] -clavulanat 1-24 tablet by ity of e 00:00: mouth 2 [place] (AUGMENTIN) 00 (two) Medical 875-125 mg times Branch per tablet daily. codeine-gua 2019-0 Yes [id number] 10mL Take 10 mL [facility] ifenesin 1-24 by mouth ity of (CHERATUSSI 00:00: every 6 [place] as N AC) 00 (six) Medical 10-100 mg/5 hours as Bran ch mL solution needed for Cough. amoxicillin 2019-0 Yes [id number] 1{tbl} Take 1 [facility] -clavulanat 1-24 tablet by ity of e 00:00: mouth 2 [place] (AUGMENTIN) 00 (two) Medical 875-125 mg times Branch per tablet daily. codeine-gua 2019-0 Yes [id number] 10mL Take 10 mL [facility] ifenesin 1-24 by mouth ity of (CHERATUSSI 00:00: every 6 [place] as N AC) 00 (six) Medical 10-100 mg/5 hours as Bran ch mL solution needed for Cough. sildenafil 2018-0 Yes 100mg Take 1 Univ ers 100 mg 8-22 tablet by ity of tablet 00:00: mouth as [place] 00 needed for Medical Other Branch (prn, sexual activity). sildenafil 2018-0 Yes 100mg Take 1 Univ ers 100 mg 8-22 tablet by ity of tablet 00:00: mouth as [place] 00 needed for Medical Other Branch (prn, sexual activity). sildenafil 2018-0 Yes 100mg Take 1 Univ ers 100 mg 8-22 tablet by ity of tablet 00:00: mouth as [place] 00 needed for Medical Other Branch (prn, sexual activity). sildenafil 2018-0 Yes 100mg Take 1 [facility] ers 100 mg 8-22 tablet by ity of tablet 00:00: mouth as [place] 00 needed for Medical Other Branch (prn, sexual activity). sildenafil 2018-0 Yes 100mg Take 1 Univ ers 100 mg 8-22 tablet by ity of tablet 00:00: mouth as [place] 00 needed for Medical Other Branch (prn, sexual activity). sildenafil 2018-0 Yes 100mg Take 1 Univ ers 100 mg 8-22 tablet by ity of tablet 00:00: mouth as [place] 00 needed for Medical Other Branch (prn, sexual activity). sildenafil 2018-0 Yes 100mg Take 1 Univ ers 100 mg 8-22 tablet by ity of tablet 00:00: mouth as [place] 00 needed for Medical Other Branch (prn, sexual activity). sildenafil 2018-0 Yes 100mg Take 1 Univ ers 100 mg 8-22 tablet by ity of tablet 00:00: mouth as [place] 00 needed for Medical Other Branch (prn, sexual activity). sildenafil 2018-0 Yes 100mg Take 1 Univ ers 100 mg 8-22 tablet by ity of tablet 00:00: mouth as [place] 00 needed for Medical Other Branch (prn, sexual activity). sildenafil 2018-0 Yes 100mg Take 1 Univ ers 100 mg 8-22 tablet by ity of tablet 00:00: mouth as [place] 00 needed for Medical Other Branch (prn, sexual activity). sildenafil 2018-0 Yes 100mg Take 1 Univ ers 100 mg 8-22 tablet by ity of tablet 00:00: mouth as [place] 00 needed for Medical Other Branch (prn, sexual activity). sildenafil 2018-0 Yes 100mg Take 1 Univ ers 100 mg 8-22 tablet by ity of tablet 00:00: mouth as [place] 00 needed for Medical Other Branch (prn, sexual activity). sildenafil 2018-0 Yes 100mg Take 1 Univ ers 100 mg 8-22 tablet by ity of tablet 00:00: mouth as [place] 00 needed for Medical Other Branch (prn, sexual activity). sildenafil 2018-0 Yes 100mg Take 1 Univ ers 100 mg 8-22 tablet by ity of tablet 00:00: mouth as [place] 00 needed for Medical Other Branch (prn, sexual activity). sildenafil 2018-0 Yes 100mg Take 1 Univ ers 100 mg 8-22 tablet by ity of tablet 00:00: mouth as [place] 00 needed for Medical Other Branch (prn, sexual activity). sildenafil 2018-0 Yes 100mg Take 1 Univ ers 100 mg 8-22 tablet by ity of tablet 00:00: mouth as [place] 00 needed for Medical Other Branch (prn, sexual activity). sildenafil 2018-0 Yes 100mg Take 1 Univ ers 100 mg 8-22 tablet by ity of tablet 00:00: mouth as [place] 00 needed for Medical Other Branch (prn, sexual activity). sildenafil 2018-0 Yes 100mg Take 1 Univ ers 100 mg 8-22 tablet by ity of tablet 00:00: mouth as [place] 00 needed for Medical Other Branch (prn, sexual activity). sildenafil 2018-0 Yes 100mg Take 1 Univ ers 100 mg 8-22 tablet by ity of tablet 00:00: mouth as [place] 00 needed for Medical Other Branch (prn, sexual activity). sildenafil 2018-0 Yes 100mg Take 1 Univ ers 100 mg 8-22 tablet by ity of tablet 00:00: mouth as [place] 00 needed for Medical Other Branch (prn, sexual activity). sildenafil 2018-0 Yes 100mg Take 1 Univ ers 100 mg 8-22 tablet by ity of tablet 00:00: mouth as [place] 00 needed for Medical Other Branch (prn, sexual activity). sildenafil 2018-0 Yes 100mg Take 1 Univ ers 100 mg 8-22 tablet by ity of tablet 00:00: mouth as [place] 00 needed for Medical Other Branch (prn, sexual activity). sildenafil 2018-0 Yes 100mg Take 1 Univ ers 100 mg 8-22 tablet by ity of tablet 00:00: mouth as [place] 00 needed for Medical Other Branch (prn, sexual activity). sildenafil 2018-0 Yes 100mg Take 1 Univ ers 100 mg 8-22 tablet by ity of tablet 00:00: mouth as [place] 00 needed for Medical Other Branch (prn, sexual activity). sildenafil 2018-0 Yes 100mg Take 1 Univ ers 100 mg 8-22 tablet by ity of tablet 00:00: mouth as [place] 00 needed for Medical Other Branch (prn, sexual activity). sildenafil 2018-0 Yes 100mg Take 1 Univ ers 100 mg 8-22 tablet by ity of tablet 00:00: mouth as [place] 00 needed for Medical Other Branch (prn, sexual activity). sildenafil 2018-0 Yes 100mg Take 1 Univ ers 100 mg 8-22 tablet by ity of tablet 00:00: mouth as [place] 00 needed for Medical Other Branch (prn, sexual activity). sildenafil 2018-0 Yes 100mg Take 1 Univ ers 100 mg 8-22 tablet by ity of tablet 00:00: mouth as [place] 00 needed for Medical Other Branch (prn, sexual activity). sildenafil 2018-0 Yes 100mg Take 1 Univ ers 100 mg 8-22 tablet by ity of tablet 00:00: mouth as [place] 00 needed for Medical Other Branch (prn, sexual activity). sildenafil 2018-0 Yes 100mg Take 1 Univ ers 100 mg 8-22 tablet by ity of tablet 00:00: mouth as [place] 00 needed for Medical Other Branch (prn, sexual activity). sildenafil 2018-0 Yes 100mg Take 1 Univ ers 100 mg 8-22 tablet by ity of tablet 00:00: mouth as [place] 00 needed for Medical Other Branch (prn, sexual activity). sildenafil 2018-0 Yes 100mg Take 1 Univ ers 100 mg 8-22 tablet by ity of tablet 00:00: mouth as [place] 00 needed for Medical Other Branch (prn, sexual activity). sildenafil 2018-0 Yes 100mg Take 1 Univ ers 100 mg 8-22 tablet by ity of tablet 00:00: mouth as [place] 00 needed for Medical Other Branch (prn, sexual activity). sildenafil 2018-0 Yes 100mg Take 1 Univ ers 100 mg 8-22 tablet by ity of tablet 00:00: mouth as [place] 00 needed for Medical Other Branch (prn, sexual activity). sildenafil 2018-0 Yes 100mg Take 1 Univ ers 100 mg 8-22 tablet by ity of tablet 00:00: mouth as [place] 00 needed for Medical Other Branch (prn, sexual activity). sildenafil 2018-0 Yes 100mg Take 1 Univ ers 100 mg 8-22 tablet by ity of tablet 00:00: mouth as [place] 00 needed for Medical Other Branch (prn, sexual activity). sildenafil 2018-0 Yes 100mg Take 1 Univ ers 100 mg 8-22 tablet by ity of tablet 00:00: mouth as [place] 00 needed for Medical Other Branch (prn, sexual activity). sildenafil 2018-0 Yes 100mg Take 1 Univ ers 100 mg 8-22 tablet by ity of tablet 00:00: mouth as [place] 00 needed for Medical Other Branch (prn, sexual activity). sildenafil 2018-0 Yes 100mg Take 1 Univ ers 100 mg 8-22 tablet by ity of tablet 00:00: mouth as [place] 00 needed for Medical Other Branch (prn, sexual activity). sildenafil 2018-0 Yes 100mg Take 1 Univ ers 100 mg 8-22 tablet by ity of tablet 00:00: mouth as [place] 00 needed for Medical Other Branch (prn, sexual activity). sildenafil 2018-0 Yes 100mg Take 1 Univ ers 100 mg 8-22 tablet by ity of tablet 00:00: mouth as [place] 00 needed for Medical Other Branch (prn, sexual activity). sildenafil 2018-0 Yes 100mg Take 1 Univ ers 100 mg 8-22 tablet by ity of tablet 00:00: mouth as [place] 00 needed for Medical Other Branch (prn, sexual activity). sildenafil 2018-0 Yes 100mg Take 1 Univ ers 100 mg 8-22 tablet by ity of tablet 00:00: mouth as [place] 00 needed for Medical Other Branch (prn, sexual activity). sildenafil 2018-0 Yes 100mg Take 1 Univ ers 100 mg 8-22 tablet by ity of tablet 00:00: mouth as [place] 00 needed for Medical Other Branch (prn, sexual activity). sildenafil 2018-0 Yes 100mg Take 1 Univ ers 100 mg 8-22 tablet by ity of tablet 00:00: mouth as [place] 00 needed for Medical Other Branch (prn, sexual activity). sildenafil 2018-0 Yes 100mg Take 1 [facility] ers 100 mg 8-22 tablet by ity of tablet 00:00: mouth as [place] 00 needed for Medical Other Branch (prn, sexual activity). sildenafil 2018-0 Yes 100mg Take 1 Univ ers 100 mg 8-22 tablet by ity of tablet 00:00: mouth as [place] 00 needed for Medical Other Branch (prn, sexual activity). sildenafil 2018-0 Yes 100mg Take 1 Univ ers 100 mg 8-22 tablet by ity of tablet 00:00: mouth as [place] 00 needed for Medical Other Branch (prn, sexual activity). sildenafil 2018-0 Yes 100mg Take 1 Univ ers 100 mg 8-22 tablet by ity of tablet 00:00: mouth as [place] 00 needed for Medical Other Branch (prn, sexual activity). sildenafil 2018-0 Yes 100mg Take 1 [facility] ers 100 mg 8-22 tablet by ity of tablet 00:00: mouth as [place] 00 needed for Medical Other Branch (prn, sexual activity). sildenafil 2018-0 Yes 100mg Take 1 Univ ers 100 mg 8-22 tablet by ity of tablet 00:00: mouth as [place] 00 needed for Medical Other Branch (prn, sexual activity). sildenafil 2018-0 Yes 100mg Take 1 Univ ers 100 mg 8-22 tablet by ity of tablet 00:00: mouth as [place] 00 needed for Medical Other Branch (prn, sexual activity). sildenafil 2018-0 Yes 100mg Take 1 Univ ers 100 mg 8-22 tablet by ity of tablet 00:00: mouth as [place] 00 needed for Medical Other Branch (prn, sexual activity). sildenafil 2018-0 Yes 100mg Take 1 Univ ers 100 mg 8-22 tablet by ity of tablet 00:00: mouth as needed for Medical Other Branch (prn, sexual activity). sildenafil 2017-0 Yes 100mg Take 1 Univ ers 100 mg 8-22 tablet by ity of tablet 00:00: mouth as 00 needed for Medical Other Branch (prn, sexual activity). sildenafil 2017-0 Yes 100mg Take 1 Univ ers 100 mg 8-22 tablet by ity of tablet 00:00: mouth as 00 needed for Medical Other Branch (prn, sexual activity). metFORMIN 2017- 2019- No 1000mg Take 1 Uni vers 1,000 mg 8-22 07-29 tablet by ity o f tablet 00:00: 00:00 mouth 2 [place] 00 :00 (two) Medical times Branch daily with meals. ONETOUCH Yes TEST BLOOD Uni vers VERIO strip 7-10 SUGAR 2 ity o f 00:00: TIMES A Medical Branch ONETOUCH Yes TEST BLOOD Uni vers VERIO strip 7-10 SUGAR 2 ity o f 00:00: TIMES A Medical Branch ONETOUCH 0 Yes TEST BLOOD Uni vers VERIO strip 7-10 SUGAR 2 ity o f 00:00: TIMES A Medical Branch ONETOUCH 0 Yes TEST BLOOD Uni vers VERIO strip 7-10 SUGAR 2 ity o f 00:00: TIMES A Medical Branch ONETOUCH 2017-0 Yes TEST BLOOD Uni vers VERIO strip 7-10 SUGAR 2 ity o f 00:00: TIMES A Medical Branch ONETOUCH 0 Yes TEST BLOOD Uni vers VERIO strip 7-10 SUGAR 2 ity o f 00:00: TIMES A Medical Branch ONETOUCH 2017-0 Yes TEST BLOOD Uni vers VERIO strip 7-10 SUGAR 2 ity o f 00:00: TIMES A Medical Branch ONETOUCH 0 Yes TEST BLOOD Uni vers VERIO strip 7-10 SUGAR 2 ity o f 00:00: TIMES A Medical Branch ONETOUCH 2017-0 Yes TEST BLOOD Uni vers VERIO strip 7-10 SUGAR 2 ity o f 00:00: TIMES A Medical Branch ONETOUCH 0 Yes TEST BLOOD Uni vers VERIO strip 7-10 SUGAR 2 ity o f 00:00: TIMES A Medical Branch ONETOUCH 2018-0 Yes TEST BLOOD Uni vers VERIO strip 7-10 SUGAR 2 ity o f 00:00: TIMES A Medical Branch ONETOUCH 0 Yes TEST BLOOD Uni vers VERIO strip 7-10 SUGAR 2 ity o f 00:00: TIMES A Medical Branch ONETOUCH Yes TEST BLOOD Uni vers VERIO strip 7-10 SUGAR 2 ity o f 00:00: TIMES A Medical Branch ONETOUCH 0 Yes TEST BLOOD Uni vers VERIO strip 7-10 SUGAR 2 ity o f 00:00: TIMES A Medical Branch ONETOUCH Yes TEST BLOOD Uni vers VERIO strip 7-10 SUGAR 2 ity o f 00:00: TIMES A Medical Branch ONETOUCH Yes TEST BLOOD Uni vers VERIO strip 7-10 SUGAR 2 ity o f 00:00: TIMES A Medical Branch ONETOUCH Yes TEST BLOOD Uni vers VERIO strip 7-10 SUGAR 2 ity o f 00:00: TIMES A Medical Branch ONETOUCH Yes TEST BLOOD Uni vers VERIO strip 7-10 SUGAR 2 ity o f 00:00: TIMES A Medical Branch ONETOUCH 0 Yes TEST BLOOD Uni vers VERIO strip 7-10 SUGAR 2 ity o f 00:00: TIMES A Medical Branch ONETOUCH 0 Yes TEST BLOOD Uni vers VERIO strip 7-10 SUGAR 2 ity o f 00:00: TIMES A Medical Branch ONETOUCH 0 Yes TEST BLOOD Uni vers VERIO strip 7-10 SUGAR 2 ity o f 00:00: TIMES A Medical Branch ONETOUCH 0 Yes TEST BLOOD Uni vers VERIO strip 7-10 SUGAR 2 ity o f 00:00: TIMES A Medical Branch ONETOUCH 0 Yes TEST BLOOD Uni vers VERIO strip 7-10 SUGAR 2 ity o f 00:00: TIMES A Medical Branch ONETOUCH 0 Yes TEST BLOOD Uni vers VERIO strip 7-10 SUGAR 2 ity o f 00:00: TIMES A Medical Branch ONETOUCH 0 Yes TEST BLOOD Uni vers VERIO strip 7-10 SUGAR 2 ity o f 00:00: TIMES A Medical Branch ONETOUCH 0 Yes TEST BLOOD Uni vers VERIO strip 7-10 SUGAR 2 ity o f 00:00: TIMES A Medical Branch ONETOUCH 0 Yes TEST BLOOD Uni vers VERIO strip 7-10 SUGAR 2 ity o f 00:00: TIMES A Medical Branch ONETOUCH 0 Yes TEST BLOOD Uni vers VERIO strip 7-10 SUGAR 2 ity o f 00:00: TIMES A Medical Branch ONETOUCH 0 Yes TEST BLOOD Uni vers VERIO strip 7-10 SUGAR 2 ity o f 00:00: TIMES A Medical Branch ONETOUCH 0 Yes TEST BLOOD Uni vers VERIO strip 7-10 SUGAR 2 ity o f 00:00: TIMES A Medical Branch ONETOUCH 0 Yes TEST BLOOD Uni vers VERIO strip 7-10 SUGAR 2 ity o f 00:00: TIMES A Medical Branch ONETOUCH 0 Yes TEST BLOOD Uni vers VERIO strip 7-10 SUGAR 2 ity o f 00:00: TIMES A Medical Branch ONETOUCH 0 Yes TEST BLOOD Uni vers VERIO strip 7-10 SUGAR 2 ity o f 00:00: TIMES A Medical Branch ONETOUCH 0 Yes TEST BLOOD Uni vers VERIO strip 7-10 SUGAR 2 ity o f 00:00: TIMES A Medical Branch ONETOUCH 0 Yes TEST BLOOD Uni vers VERIO strip 7-10 SUGAR 2 ity o f 00:00: TIMES A Medical Branch ONETOUCH 0 Yes TEST BLOOD Uni vers VERIO strip 7-10 SUGAR 2 ity o f 00:00: TIMES A Medical Branch ONETOUCH 0 Yes TEST BLOOD Uni vers VERIO strip 7-10 SUGAR 2 ity o f 00:00: TIMES A Medical Branch ONETOUCH 0 Yes TEST BLOOD Uni vers VERIO strip 7-10 SUGAR 2 ity o f 00:00: TIMES A Medical Branch ONETOUCH 0 Yes TEST BLOOD Uni vers VERIO strip 7-10 SUGAR 2 ity o f 00:00: TIMES A Medical Branch ONETOUCH 0 Yes TEST BLOOD Uni vers VERIO strip 7-10 SUGAR 2 ity o f 00:00: TIMES A Medical Branch ONETOUCH [id number] Yes TEST BLOOD Uni vers VERIO strip 7-10 SUGAR 2 ity o f 00:00: TIMES A Medical Branch ONETOUCH 0 Yes TEST BLOOD Uni vers VERIO strip 7-10 SUGAR 2 ity o f 00:00: TIMES A Medical Branch ONETOUCH 0 Yes TEST BLOOD Uni vers VERIO strip 7-10 SUGAR 2 ity o f 00:00: TIMES A Medical Branch ONETOUCH 0 Yes TEST BLOOD Uni vers VERIO strip 7-10 SUGAR 2 ity o f 00:00: TIMES A Medical Branch ONETOUCH 0 Yes TEST BLOOD Uni vers VERIO strip 7-10 SUGAR 2 ity o f 00:00: TIMES A Medical Branch ONETOUCH 0 Yes TEST BLOOD Uni vers VERIO strip 7-10 SUGAR 2 ity o f 00:00: TIMES A Medical Branch ONETOUCH 0 Yes TEST BLOOD Uni vers VERIO strip 7-10 SUGAR 2 ity o f 00:00: TIMES A Medical Branch ONETOUCH 0 Yes TEST BLOOD Uni vers VERIO strip 7-10 SUGAR 2 ity o f 00:00: TIMES A Medical Branch ONETOUCH 0 Yes TEST BLOOD Uni vers VERIO strip 7-10 SUGAR 2 ity o f 00:00: TIMES A Medical Branch ONETOUCH 0 Yes TEST BLOOD Uni vers VERIO strip 7-10 SUGAR 2 ity o f 00:00: TIMES A Medical Branch ONETOUCH 0 Yes TEST BLOOD Uni vers VERIO strip 7-10 SUGAR 2 ity o f 00:00: TIMES A Medical Branch ONETOUCH 0 Yes TEST BLOOD Uni vers VERIO strip 7-10 SUGAR 2 ity o f 00:00: TIMES A Medical Branch ONETOUCH 0 Yes TEST BLOOD Uni vers VERIO strip 7-10 SUGAR 2 ity o f 00:00: TIMES A Medical Branch ONETOUCH 0 Yes TEST BLOOD Uni vers VERIO strip 7-10 SUGAR 2 ity o f 00:00: TIMES A Medical Branch ONETOUCH 2018-0 Yes TEST BLOOD Uni vers VERIO strip 7-10 SUGAR 2 ity o f 00:00: TIMES A Medical Branch ONETOUCH 2018-0 Yes TEST BLOOD Uni vers VERIO strip 7-10 SUGAR 2 ity o f 00:00: TIMES A Medical Branch Vital Signs Vital Name Observation Time Observation Value Comments Source Systolic blood 2020-05-23 20:04:00 162 mm[Hg] Univer sity of pressure [facility] Diastolic blood 2020-05-23 20:04:00 82 mm[Hg] Unive rsity of pressure [facility] Heart rate 2020-05-23 20:04:00 75 /min Universi ty of [facility] Body temperature 2020-05-23 20:04:00 36.89 Audrey Univ ersity of [facility] Body height 2020-05-23 20:04:00 180.3 cm [facility] Body weight 2020-05-23 20:04:00 119.477 kg Universi ty [facility] BMI 2020-05-23 20:04:00 36.74 kg/m2 [facility] Oxygen saturation in 2020-05-23 20:04:00 99 /min University of Arterial blood by [place] [facility] Systolic blood 2020-05-23 20:04:00 162 mm[Hg] Univer sity of pressure [facility] Diastolic blood 2020-05-23 20:04:00 82 mm[Hg] Unive rsity of pressure [facility] Heart rate 2020-05-23 20:04:00 75 /min [facility]i [facility] Body temperature 2020-05-23 20:04:00 36.89 Audrey Univ ersity of [facility] Body height 2020-05-23 20:04:00 180.3 cm Universi ty [facility] Body weight 2020-05-23 20:04:00 119.477 kg [facility] BMI 2020-05-23 20:04:00 36.74 kg/m2 [facility] Oxygen saturation in 2020-05-23 20:04:00 99 /min University of Arterial blood by [place] [facility] Systolic blood 2020-05-14 16:38:00 173 mm[Hg] Univer sity of pressure [facility] Diastolic blood 2020-05-14 16:38:00 94 mm[Hg] Unive rsity of pressure [facility] Heart rate 2020-05-14 16:37:00 72 /min Universi ty of [facility] Body temperature 2020-05-14 16:37:00 36.72 Audrey Univ ersity of [facility] Respiratory rate 2020-05-14 16:37:00 20 /min [facility] ersity of [facility] Body height 2020-05-14 16:37:00 180.3 cm Universi ty of [facility] Body weight 2020-05-14 16:37:00 117.935 kg Universi ty of [facility] BMI 2020-05-14 16:37:00 36.26 kg/m2 Universi ty [facility] Oxygen saturation in 2020-05-14 16:37:00 96 /min [facility] Arterial blood by [facility] Pulse oximetry Branch Procedures Procedure Date / Time Performed Performing Clinician Sour e EXTERNAL PROVIDER 2020-07-01 06:01:00 Doctor Unassigned, No [facility] RECORDS Name Medical Branch CT ABDOMEN WO 2020-05-14 19:34:45 [facility] o f [facility] CBC WITH DIFF 2020-05-14 17:36:00 [facility] Encounters Start End Encounter Admission Attending Care Care Encounter Source Date/Time Date/Time Type Type Clinicians Facility Department ID 2021-07-18 2021-07-18 Donny Hernandez [facility] 1.2.840.114 [id number] Univers 00:00:00 00:00:00 [facility] 350.1.13.10 it y of [place] [id number] Tino as PROFESSIO [phone] [address] OFFICE BUILDING ONE 2021-07-17 2021-07-17 Donny Hernandez [facility] 1.2.840.114 [id number] Univers 00:00:00 00:00:00 [facility] 350.1.13.10 [facility] [id number] Tino as PROFESSIO [phone] [facility] NAL [address] [place] [address] OFFICE BUILDING ONE 2021-06-12 2021-06-12 Donny Hernandez [facility] 1.2.840.114 [id number] Univers 00:00:00 00:00:00 [facility] 350.1.13.10 it y of [place] [id number] Tino as BRIAN?BLEA [phone] Tn breonna RAPP [address] [place] [address] OFFICE BUILDING 2021-05-13 2021-05-13 Donny Newton [facility] 1.2.840.114 [id number] Univers 00:00:00 00:00:00 [facility] 350.1.13.10 it y of [place] [id number] Tino as Brian?Blea [phone] Tn austinky tobias[address] Office Building 2021-05-08 2021-05-08 [facility] 1.2.840.114 [id number] Univers 00:00:00 00:00:00 [facility] 350.1.13.10 it y of [place] [id number] Tino as Professio [phone] [address] One 2021-04-11 2021-04-11 [facility] 1.2.840.114 [id number] Univers 00:00:00 00:00:00 [facility] 350.1.13.10 it y of [place] [id number] Tino as Brian?Blea [phone] [address] Office [facility] 2021-03-27 2021-03-27 [facility] 1.2.840.114 [id number] Univers 00:00:00 00:00:00 [facility] 350.1.13.10 it y of [place] 4.2.7.2.686 Tino as Professio [phone] [address] Office [facility] One 2021-03-18 2021-03-18 [facility] 1.2.840.114 [id number] Univers 00:00:00 00:00:00 [facility] 350.1.13.10 it y of [place] 4.2.7.2.686 Tino as Brian?Blea [phone] [facility] tobias[address] Office Building 2021-03-14 2021-03-14 Donny Frostcarrillo [facility] 1.2.840.114 [id number] Univers 00:00:00 00:00:00 [facility] 350.1.13.10 it y of [place] 4.2.7.2.686 Tino as Professio [phone] [facility] nal [address] [place] [address] Office [facility] One 2021-02-15 2021-02-15 [facility] 1.2.840.114 [id number] Univers 00:00:00 00:00:00 [facility] 350.1.13.10 it y of [place] 4.2.7.2.686 Tino as Professio [phone] [facility] [address] [place] [address] Office [facility] One 2021-01-18 2021-01-18 [facility] 1.2.840.114 [id number] Univers 00:00:00 00:00:00 [facility] 350.1.13.10 it y of [place] 4.2.7.2.686 Tino as Professio [phone] [facility] nal [address] [place] [address] Office [facility] One 2021-01-17 2021-01-17 [facility] 1.2.840.114 [id number] Univers 00:00:00 00:00:00 [facility] 350.1.13.10 it y of [place] 4.2.7.2.686 Tino as Professio [phone] [facility] nal [address] [place] [address] One 2020-12-25 2020-12-25 [facility] 1.2.840.114 [id number] Univers 00:00:00 00:00:00 [facility] 350.1.13.10 it y of [place] 4.2.7.2.686 Tino as Professio [phone] [facility] [address] [place] [address] Office [facility] One 2020-11-30 2020-11-30 [facility] 1.2.840.114 [id number] Univers 00:00:00 00:00:00 [facility] 350.1.13.10 it y of [place] 4.2.7.2.686 Tino as Professio [phone] [address] Office [facility] One 2020-11-08 2020-11-08 Telephone David [facility] [id number] Univers 00:00:00 00:00:00 [facility] 350.1.13.10 it y of [place] 4.2.7.2.686 Tino as Professio [phone] [address] One 2020-10-07 2020-10-07 [facility] 1.2.840.114 [id number] Univers 00:00:00 00:00:00 [facility] 350.1.13.10 it y of [place] 4.2.7.2.686 Tino as Professio [phone] [address] One 2020-09-28 2020-09-28 Patient Lloyd [facility] 1.2.840.114 [id number] Univers 00:00:00 00:00:00 Outreach [facility] 350.1.13.10 i ty of [place] [facility] 4[place]2.7.[place] [phone] [address] 2020-08-13 2020-08-13 [facility]che[facility] 1.2.840.114 [id number] Univers 00:00:00 00:00:00 [facility] 350.1.13.10 it y of [place] 4.2.7.2.686 Tino as Professio [phone] [address] One 2020-08-13 2020-08-13 Refcherie Bullard [facility] 1.2.840.114 [id number] Univers 00:00:00 00:00:00 [facility] 350.1.13.10 ity of [place] 4.2.7.2.686 Tino as Professio [phone] [address] One 2020-07-15 2020-07-15 Donny Bullard [facility] 1.2.840.114 [id number] Univers 00:00:00 00:00:00 [facility] 350.1.13.10 ity of [place] 4.2.7.2.686 Tino as Professio [phone] [facility] nal [address] [place] [address] Office [facility] One 2020-07-15 2020-07-15 Telephone David [facility] [id number] Univers 00:00:00 00:00:00 [facility] 350.1.13.10 it y of [place] 4.2.7.2.686 Tion as Professio [phone] [address] One 2020-07-14 2020-07-14 [facility] 1.2.840.114 [id number] Univers 00:00:00 00:00:00 [facility] 350.1.13.10 it y of [place] 4.2.7.2.686 Tino as Professio [phone] [facility] nal [address] [place] [address] Office [facility] One 2020-07-04 2020-07-04 [facility]reie [facility] 1.2.840.114 [id number] Univers 00:00:00 00:00:00 [facility] 350.1.13.10 it y of [place] 4.2.7.2.686 Tino as Professio [phone] [address] 2020-07-03 2020-07-03 Refcherie Harrison [facility] 1.2.840.114 [id number] Univers 00:00:00 00:00:00 [facility] 350.1.13.10 i ty of [place] 4.2.7.2.686 Tino as Professio [phone] [address] 2020-07-01 2020-07-01 Orders Doctor GIL 1.2.840.114 [id number] Univers 00:00:00 00:00:00 Only Unassigned, [place] 350.1.13.10 ity of [place] [facility] 4.2.7.2.686 Tino as [phone] [address] 2020-07-01 2020-07-01 [facility] 1.2.840.114 [id number] Univers 00:00:00 00:00:00 [facility] 350.1.13.10 it y of [place] 4.2.7.2.686 Tino as Professio [phone] Tn dical nal [address] One 2020-06-17 2020-06-17 Telephone David [facility] [id number] Univers 00:00:00 00:00:00 [facility] 350.1.13.10 it y of [place] 4.2.7.2.686 Tino as Professio [phone] Tn dicky nal [address] [place] [address] Office Building One 2020-06-15 2020-06-15 Refcherie Hernandez [facility] 1.2.840.114 [id number] Univers 00:00:00 00:00:00 [facility] 350.1.13.10 it y of [place] 4.2.7.2.686 Tino as Professio [phone] [facility] nal [address] [place] [address] Office Building One 2020-06-06 2020-06-06 Refcherie Hernandez [facility] 1.2.840.114 [id number] 00:00:00 00:00:00 [facility] 350.1.13.10 [place] 4.2.7.2.686 Professio [phone] [place] [address] [facility] 2020-06-06 2020-06-06 [facility] 1.2.840.114 [id number] Univers 00:00:00 00:00:00 [facility] 350.1.13.10 it y of [place] 4.2.7.2.686 Tino as Professio [phone] Tn dical nal [address] [place] [address] Office [facility] 2020-05-23 2020-05-23 Office [facility] 1.2.840.114 [id number] 13:54:55 14:41:19 Visit [facility] 350.1.13.10 [place] 4.2.7.2.686 Professio [phone] [place] [address] Office [facility] 2020-05-23 2020-05-23 Office [facility] 1.2.840.114 [id number] Univers 13:54:55 14:41:19 Visit [facility] 350.1.13.10 it y of [place] 4.2.7.2.686 Tino as Professio [phone] [facility] [address] [place] [address] Office [facility] One 2020-05-23 2020-05-23 Outpatient R LAMAR [facility] [id number] Univers 14:00:00 14:00:00 ANAYA trimble [facility] 2020-05-23 2020-05-23 Outpatient R LAMAR [facility] [id number] Univers 14:00:00 14:00:00 ANAYA [id number] ity [facility] 2020-05-15 2020-05-15 Telephone [facility] [id number] Univers 00:00:00 00:00:00 [facility] 350.1.13.10 it y of [place] 4.2.7.2.686 Tino as Professio [phone] [address] Office [facility] 2020-05-14 2020-05-14 Hospital [facility] 1.2.840.114 [id number] Univers 12:45:59 23:59:00 Encounter Anaya Sullivan 350.1.13.10 ity [place] [phone] [address] 2020-05-14 2020-05-14 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, 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 Main [facility] 1.2.8 40.114 [id number] Univers 12:24:05 12:39:05 Visit Anaya Newton 350.1.13.10 ity [place] [phone] [facility] 2020-05-14 2020-05-14 Urgent Provider, [facility] 1.2.840.114 [id number] Univers 11:22:14 12:08:44 Care Anaya Newton 350.1.13.10 ity of [place] 4.2.7.2.686 Tino as Professio [phone] [address] 2020-05-14 2020-05-14 Outpatient R [facility] [id number] Univers 11:20:00 11:20:00 [id number] ity [facility] 2020-05-14 2020-05-14 Outpatient R [facility] [id number] Univers 11:20:00 11:20:00 ity of [facility] 2020-05-14 2020-05-14 Letter Doctor GIL 1.2.840.114 [id number] Univers 00:00:00 00:00:00 (Out) Unassigned, WINSTON 350.1.13.10 ity of [place] [facility] 4.2.7.2.686 Tino as [phone] [address] 2020-05-09 2020-05-09 Refill Christy, [facility] 1.2.840.114 [id number] Univers 00:00:00 00:00:00 [facility] 350.1.13.10 i ty of [place] 4.2.7.2.686 [place]ino as Professio [phone] [address] Office [facility] 2020-03-28 2020-03-28 Refcherie Harrison, [facility] 1.2.840.114 [id number] Univers 00:00:00 00:00:00 [facility] 350.1.13.10 i ty of [place] 4.2.7.2.686 Tino as Professio [phone] [address] Office [facility] 2020-02-12 2020-02-12 [facility] 1.2.840.114 [id number] Univers 00:00:00 00:00:00 [facility] 350.1.13.10 i ty of [place] 4.2.7.2.686 Tino as Professio [phone] [address] Office [facility] 2020-01-31 2020-01-31 [facility] 1.2.840.114 [id number] Univers 00:00:00 00:00:00 [facility] 350.1.13.10 it y of [place] 4.2.7.2.686 Tino as Professio [phone] [address] Office [facility] 2020-01-09 2020-01-09 [facility] 1.2.840.114 [id number] Univers 00:00:00 00:00:00 [facility] 350.1.13.10 it y of [place] 4.2.7.2.686 Tino as Professio [phone] [facility] nal [address] [place] [address] Office [facility] 2020-01-08 2020-01-08 Refill Christy, [facility] 1.2.840.114 [id number] Univers 00:00:00 00:00:00 [facility] 350.1.13.10 i ty of [place] 4.2.7.2.686 Tino as Professio [phone] [address] One 2019-12-09 2019-12-09 Refcherie Hernandez, [facility] 1.2.840.114 [id number] Univers 00:00:00 00:00:00 [facility] 350.1.13.10 it y of [place] 4.2.7.2.686 Tino as Professio [phone] [address] One 2019-11-22 2019-11-22 Refill Christy, [facility] 1.2.840.114 [id number] Univers 00:00:00 00:00:00 [facility] 350.1.13.10 i ty of [place] 4.2.7.2.686 Tino as Professio [phone] [facility] nal [address] [place] [address] One 2019-11-21 2019-11-21 Refcherie Christy, [facility] 1.2.840.114 [id number] Univers 00:00:00 00:00:00 [facility] 350.1.13.10 i ty of [place] 4.2.7.2.686 Tino as Professio [phone] [facility] nal [address] [place] [address] Office [facility] 2019-11-14 2019-11-14 Refcherie Hernandez, [facility] 1.2.840.114 [id number] Univers 00:00:00 00:00:00 [facility] 350.1.13.10 it y of [place] 4.2.7.2.686 Tino as Professio [phone] [facility] nal [address] [place] [address] One 2019-10-27 2019-10-27 Refill Christy, [facility] 1.2.840.114 [id number] Univers 00:00:00 00:00:00 [facility] 350.1.13.10 i ty of [place] 4.2.7.2.686 Tino as Professio [phone] Tn dical nal [address] [place] [address] Office [facility] 2019-10-07 2019-10-07 [facility] 1.2.840.114 [id number] Univers 00:00:00 00:00:00 [facility] 350.1.13.10 it y of [place] 4.2.7.2.686 Tino as Professio [phone] Tn breonna nal [address] [place] [address] Office [facility] 2019-09-09 2019-09-09 [facility] 1.2.840.114 [id number] Univers 00:00:00 00:00:00 [facility] 350.1.13.10 it y of [place] 4.2.7.2.686 Tino as Professio [phone] Tn breonna nal [address] [place] [address] Office [facility] 2019-08-14 2019-08-14 [facility] 1.2.840.114 [id number] Univers 00:00:00 00:00:00 [facility] 350.1.13.10 it y of [place] 4.2.7.2.686 Tino as Professio [phone] Tn breonna nal [address] [place] [address] Office [facility] 2019-03-23 2019-03-23 [facility] 1.2.840.114 [id number] Univers 00:00:00 00:00:00 [facility] 350.1.13.10 it y of [place] 4.2.7.2.686 Tino as Professio [phone] Tn austinal nal [address] [place] [address] Office [facility] 2019-03-10 2019-03-10 [facility] 1.2.840.114 [id number] Univers 00:00:00 00:00:00 [facility] 350.1.13.10 it y of [place] 4.2.7.2.686 Tino as Professio [phone] Tn austinal nal [address] [place] [address] Office [facility] 2019-02-24 2019-02-24 [facility] 1.2.840.114 [id number] Univers 00:00:00 00:00:00 [facility] 350.1.13.10 it y of [place] 4.2.7.2.686 Tino as Professio [phone] Tn dical nal [address] [facility] 2019-02-13 2019-02-13 Donny Hernandez [facility] 1.2.840.114 [id number] Univers 00:00:00 00:00:00 Osbaldo Coleman 350.1.13.10 it y of [place] 4.2.7.2.686 Tino as Profaravindio [phone] Tn dical nal [address] [facility] One Results Test Test Test Results Result Source Description Time Comments Comments CT ABDOMEN WO 2020-04- CT Abdomen without Uni versity of CONTRAST 27 contrast. [facility] 19:49:23 HISTORY: Abdominal pain. Branch TECHNIQUE: Multidetector helical CT acquisition was obtained from the lungbases to the level iliac crests without oral and IV contrast. ?The imageswere reviewed in lung, bone, and soft tissue windows. FINDINGS: ?Absence of intravenous contrast limits evaluation of the solidorgans. Evaluation of the bowel is also limited by lack of oral contrast. Lower lungs: Clear. Triple-vessel coronary atherosclerosis is noted. Liver, Gallbladder and Spleen: Liver is 20 cm in length and showed diffusehepatic steatosis. Spleen is also enlarged, measuring 15 x 7.2 cm. Probablevery small gallstone without any acute changes. Focal calcifications are seen in the soft tissues adjacent to the anteriorinferior surface of the spleen and in the left upper abdomen near the innersurface of the spleen and splenic artery/aorta adrenal gland region, fromunknown etiology. Peritoneum: ?No free air or free fluid. No lymphadenopathy. Pancreas and Adrenals: ?Unremarkable pancreas and adrenal glands. Kidneys and Ureters: 5 mm nonobstructing stone in the interpolar rightkidney and 4 mm stone in the lower pole collecting system of the leftkidney. No hydronephrosis or hydroureter.. ? Vessels: Mild diffuse atherosclerosis of the aorta. No aortic aneurysm. Retroperitoneum: No abnormal fluid or lymphadenopathy. Bowel: Portions of normal appendix visualized. Visualized large bowelshowed mild diverticular disease without any acute changes. Bones: Subcentimeter sclerotic lesion in left side of T10 vertebral body isof unknown etiology but could be an incidental bone island. Milddegenerative changes are seen in the lower thoracic and upper lumbarspines. Prominent Schmorl's nodes are seen in the L2 and lower thoracicvertebral endplates, likely secondary to remote axial loading trauma. Discosteophyte complex noted protruding into the spinal canal at L4-L5 andL5-S1. Soft tissues: Unremarkable. CONCLUSION:1. No acute intra-abdominal pathology detected.2. Focal ill-defined increased density in the left anterior abdominalsubcutaneous tissue above the level of umbilicus could be scar tissue orsecondary to recent trauma. Please correlate with history.3. Hepatosplenomegaly with hepatic steatosis.4. Bilateral kidney stones without hydronephrosis or hydroureter.5. Probable small gallstone without any acute changes of cholecystitis. [facility], Radiant Results Inft User - 05/14/2020 2:50 PM CDTCT Abdomen without contrast.CLINICAL HISTORY: Abdominal pain.TECHNIQUE: Multidetector helical CT acquisition was obtained from the lungbases to the level iliac crests without oral and IV contrast. The imageswere reviewed in lung, bone, and soft tissue windows.FINDINGS: Absence of intravenous contrast limits evaluation of the solidorgans. Evaluation of the bowel is also limited by lack of oral contrast. Lower lungs: Clear. Triple-vessel coronary atherosclerosis is noted.Liver, Gallbladder and Spleen: Liver is 20 cm in length and showed diffusehepatic steatosis. Spleen is also enlarged, measuring 15 x 7.2 cm. Probablevery small gallstone without any acute changes.Focal calcifications are seen in the soft tissues adjacent to the anteriorinferior surface of the spleen and in the left upper abdomen near the innersurface of the spleen and splenic artery/aorta adrenal gland region, fromunknown etiology.Peritoneum: No free air or free fluid. No lymphadenopathy.Pancreas and Adrenals: Unremarkable pancreas and adrenal glands.Kidneys and Ureters: 5 mm nonobstructing stone in the interpolar rightkidney and 4 mm stone in the lower pole collecting system of the leftkidney. No hydronephrosis or hydroureter.. Vessels: Mild diffuse atherosclerosis of the aorta. No aortic aneurysm.Retroperitoneum: No abnormal fluid or lymphadenopathy.Bowel: Portions of normal appendix visualized. Visualized large bowelshowed mild diverticular disease without any acute changes. Bones: Subcentimeter sclerotic lesion in left side of T10 vertebral body isof unknown etiology but could be an incidental bone island. Milddegenerative changes are seen in the lower thoracic and upper lumbarspines. Prominent Schmorl's nodes are seen in the L2 and lower thoracicvertebral endplates, likely secondary to remote axial loading trauma. Discosteophyte complex noted protruding into the spinal canal at L4-L5 andL5-S1.Soft tissues: Unremarkable.CONCLUSION:1 . No acute intra-abdominal pathology detected.2. Focal ill-defined increased density in the left anterior abdominalsubcutaneous tissue above the level of umbilicus could be scar tissue orsecondary to recent trauma. Please correlate with history.3. Hepatosplenomegaly with hepatic steatosis.4. Bilateral kidney stones without hydronephrosis or hydroureter.5. Probable small gallstone without any acute changes of cholecystitis. CBC WITH DIFF 2020-05-14 17:45:00 Test Item Value Reference Range Interpretation Comme nts WBC (test code = 6690-2) See_Comment [A utomated message] The system which [employer] nerated this result transmit joey reference range: 4.20 - 1 0.70 10*3/?L. The reference r anjelica was not used to interpr et this result as normal/abnor mal. RBC (test code = 789-8) See_Comment [Au tomated message] The system which [employer] nerated this result transmit joey reference range: 4.26 - 5 .52 10*6/?L. The reference r anjelica was not used to interpr et this result as normal/abnor mal. HGB (test code = 718-7) 15.1 g/dL 12.2-16.4 HCT (test code = 4544-3) 44.3 % 38.4-49.3 MCV (test code = 787-2) 88.6 fL 81.7-95.6 MCH (test code = 785-6) 30.2 pg 26.1-32.7 MCHC (test code = 786-4) 34.1 g/dL 31.2-35 RDW-SD (test code = 99293-6) 39.4 fL 38.5-51.6 RDW-CV (test code = 788-0) 12.2 % 12.1-15.4 PLT (test code = 777-3) See_Comment L [Au tomated message] The system which ge nerated this result transmit joey reference range: 150 - 32 8 10*3/?L. The reference range was not used to interpret th is result as normal/abnormal . MPV (test code = 35465-1) 10.2 fL 9.8-13 NRBC/100 WBC (test code = See_Comment [ Automated message] The [id number]) system which ge nerated this result transmit joey reference range: 0.0 - 10 .0 /100 WBCs. The reference r anjelica was not used to interpr et this result as normal/abnor mal. NRBC x10^3 (test code = <0.01 See_Comment [Au tomated message] The [id number]) system which ge nerated this result transmit joey reference range: 10*3/?L. The reference range was not u sed to interpret this result as normal/abnormal . GRAN MAT (NEUT) % (test code 60.5 % = 770-8) IMM GRAN % (test code = 0.40 % [id number]) LYMPH % (test code = 736-9) 29.0 % MONO % (test code = 5905-5) 5.7 % EOS % (test code = 713-8) 3.8 % BASO % (test code = 706-2) 0.6 % GRAN MAT x10^3(ANC) (test 4.32 10*3/uL 1.99-6.95 code = [id number]) IMM GRAN x10^3 (test code = 0.03 10*3/uL 0-0.06 [id number]) LYMPH x10^3 (test code = 2.07 10*3/uL 1.09-3.23 731-0) MONO x10^3 (test code = 0.41 10*3/uL 0.36-1.02 742-7) EOS x10^3 (test code = 0.27 10*3/uL 0.06-0.53 711-2) BASO x10^3 (test code = 0.04 10*3/uL 0.01-0.09 704-7) Lab Interpretation (test Abnormal code = 72161-3) [facility]
[2021-12-08 15:57] LABS: Urine Blood Trace-intact (Negative); Urine Glucose 2+ (Negative); Urine Protein Negative (Negative); Urine Specific Gravity 1.025 (1.005-1.030)
[2021-12-08 16:02] LABS: Absolute Lymphocytes (CBC) 1.8 K/uL (0.7-4.9); Hematocrit 49.2 % (39.6-49.0); Lymphocytes % 11.7 % (15.3-44.8); MPV 7.8 fL (7.6-11.3); RBC Red Blood Cell Count 5.67 M/uL (4.33-5.43)
[2021-12-08] MEDS ORDERED: ONDANSETRON 4 MG/2 ML VIAL ONE (16:03)
[2021-12-08] MEDS ORDERED: FAMOTIDINE 20 MG/2 ML VIAL IV ONE (16:03)
[2021-12-08 16:08] LABS: Urine Bacteria <20 /HPF (NONE SEEN); Urine RBC NONE SEEN /HPF (NONE SEEN)
[2021-12-08 16:15] LABS: Albumin 4.4 g/dL (3.4-5.0); Bilirubin Total 1.1 mg/dL (0.2-1.0); Potassium 3.8 mmol/L (3.5-5.1); Protein, Total 8.3 g/dL (6.4-8.2)
--- NOTE | 2021-12-08 17:06 | RAD REPORT ---
EXAM DESCRIPTION: CT - Abdomen Pelvis W Contrast - 12/08/2021 4:48 pm CLINICAL HISTORY: Abdominal pain, acute, nonlocalized COMPARISON: <Comparisons> TECHNIQUE: Biphasic, helical CT imaging of the abdomen and pelvis was performed following 100 ml non -ionic IV contrast. No oral contrast administered. All CT scans are performed using dose optimization technique as appropriate and may include automated exposure control or mA/KV adjustment according to patient size. FINDINGS: No suspicious findings in the lung bases. Liver shows mild diffuse fatty infiltration with no focal liver lesion. No portal vein abnormality. S pleen and pancreas show no acute findings. Gallbladder and biliary tree are also without suspicious f inding. Symmetric renal function is seen with no hydronephrosis or suspicious renal mass. No pyelonephritis o r acute parenchymal process. No bladder abnormalities. No adrenal abnormalities. Nonobstructing 5 mm calyx calcification noted on the right. No stomach or small bowel abnormality. Ileocecal valve is normal in appearance. The appendix is gross ly abnormal dilated to 2.2 cm. Santos of the distal appendix are thickened and edematous with strandin g in the adjacent periappendiceal fat. Tip of the cecum is only mildly thickened. The remainder of th e colon shows no acute finding. No free air or pneumatosis. No abscess. Perforation of the appendix is not suspected. No mass or bulky lymphadenopathy. Fat extends into the origin of each inguinal can al. No suspicious bony findings. IMPRESSION: Acute appendicitis. Perforation is not suspected. The appendix is in classic right lower quadrant location. Fatty infiltration of the liver.
--- NOTE | 2021-12-08 17:31 | EDPHYS ---
Physician Documentation [facility] Name: Zeus Leone Age: 56 yrs Sex: Male : 1965 Arrival Date: 12/08/2021 Time: 15:07 Bed 3 Private MD: Loy Hodge ED Physician Judson Viera HPI: 12/08 15:35 This 56 yrs old Male presents to ER via Ambulatory with complaints of Abdominal cp Cramping - bloating, Vomiting. 15:35 The patient presents with abdominal pain mid and lower abdomen abdominal distention cp that is diffuse. Onset: The symptoms/episode began/occurred this morning. The symptoms do not radiate. Associated signs and symptoms: Pertinent positives: nausea, vomiting, loose stools, Pertinent negatives: blood in stools, chest pain, constipation, shortness of breath, testicular pain. The symptoms are described as pressure. 15:35 Severity of pain: in the emergency department the pain is unchanged despite home cp interventions. Historical: - Allergies: 15:15 NKA; jd3 - PMHx: 15:15 Diabetes - NIDDM; Hypertension; jd3 - PSHx: 15:15 mass taken off of kidney; jd3 - Immunization history:: Adult Immunizations up to date, Client reports having NOT received the Covid vaccine. Flu vaccine is not up to date. - Social history:: Smoking status: Patient denies any tobacco usage or history of. ROS: 15:40 Constitutional: Negative for body aches, chills, fever, poor PO intake. cp 15:40 Eyes: Negative for injury, pain, redness, and discharge. cp 15:40 ENT: Negative for ear pain, sore throat, difficulty swallowing, difficulty handling secretions. 15:40 Cardiovascular: Negative for chest pain, palpitations. 15:40 Respiratory: Negative for cough, shortness of breath, wheezing. 15:40 Abdomen/GI: Positive for abdominal pain, nausea and vomiting, Negative for constipation, black/tarry stool, rectal bleeding. 15:40 Back: Negative for radiated pain. 15:40 Neuro: Negative for dizziness, headache, weakness. 15:40 All other systems are negative. Exam: 15:45 Constitutional: The patient appears in no acute distress, alert, awake, cp non-diaphoretic, non-toxic, well developed, well nourished, overweight 15:45 Head/Face: Normocephalic, atraumatic. cp 15:45 Eyes: Periorbital structures: appear normal, Conjunctiva: normal, no exudate, no injection, Sclera: no appreciated abnormality, Lids and lashes: appear normal, bilaterally. 15:45 ENT: External ear(s): are unremarkable, Nose: is normal, Mouth: Lips: moist, Oral mucosa: moist, Posterior pharynx: Airway: no evidence of obstruction, patent. 15:45 Chest/axilla: Inspection: normal. 15:45 Cardiovascular: Rate: normal, Rhythm: regular, Edema: is not appreciated, JVD: is not appreciated. 15:45 Respiratory: the patient does not display signs of respiratory distress, Respirations: normal, no use of accessory muscles, no retractions, labored breathing, is not present, Breath sounds: are clear throughout, no decreased breath sounds, no stridor, no wheezing. 15:45 Abdomen/GI: Inspection: obese Bowel sounds: active, all quadrants, Palpation: soft, in all quadrants, moderate abdominal tenderness, in the umbilical area, right lower quadrant and left lower quadrant, rebound tenderness, is not appreciated, voluntary guarding, is elicited in the umbilical area, right lower quadrant and left lower quadrant. 15:45 Back: pain, is absent, ROM is normal. 15:45 Skin: cellulitis, is not appreciated, no rash present. 15:45 Neuro: Orientation: to person, place \\T\\ time. Mentation: is normal, Motor: moves all fours, strength is normal, Sensation: is normal. Vital Signs: 15:16 BP 158 / 85; Pulse 75; Resp 17 S; Temp 97.7(TE); Pulse Ox 98% on R/A; Weight 114.31 kg jd3 (R); Height 5 ft. 11 in. (180.34 cm) (R); Pain 8/10; 17:15 BP 157 / 84; Pulse 79; Resp 15; Pulse Ox 97% ; jl7 18:00 BP 168 / 93; Pulse 79; Resp 15; Pulse Ox 97% ; jl7 15:16 Body Mass Index 35.15 (114.31 kg, 180.34 cm) jd3 MDM: 17:14 Patient medically screened. cp 17:25 Data reviewed: vital signs, nurses notes, lab test result(s), radiologic studies, CT cp scan, and as a result, I will discharge patient. 17:25 Counseling: I had a detailed discussion with the patient and/or guardian regarding: the cp historical points, exam findings, and any diagnostic results supporting the discharge/admit diagnosis, lab results, radiology results, the need for further work-up and treatment in the hospital. Response to treatment: the patient's symptoms have markedly improved after treatment, and as a result, I will discharge patient. 17:36 Physician consultation: Srinivasa Morton MD was called at 17:35, was contacted at 17:35, regarding consult, patient's condition, would like admission per Dr. Andriy Galloway MD. 12/08 15:31 Order name: CBC with Diff; Complete Time: 17:06 12/08 17:09 Interpretation: Normal except: WBC 15.7; RBC 5.67; HCT 49.2; EDUARDO% 81.8; LYM% 11.7; NEUT cp A 12.8. 12/08 15:31 Order name: CMP; Complete Time: 17:06 12/08 17:09 Interpretation: Normal except: GLUC 157; GFR 68; BILIT 1.1; TP 8.3; GLOB 3.9. 12/08 15:31 Order name: Lipase; Complete Time: 17:06 12/08 15:31 Order name: Urine Microscopic Only; Complete Time: 17:06 12/08 15:58 Order name: Urine Dipstick-Ancillary; Complete Time: 17:06 EDCA 12/08 17:16 Order name: SARS-COV-2 RT PCR (Document "Date of Onset" if Symptomatic) 12/08 15:31 Order name: CT Abd/Pelvis - IV Contrast Only; Complete Time: 17:17 12/08 17:17 Interpretation: Report reviewed. 12/08 17:39 Order name: XRAY Chest (1 view) 12/08 15:31 Order name: IV Saline Lock; Complete Time: 16:02 12/08 15:31 Order name: Labs collected and sent; Complete Time: 16:02 12/08 15:31 Order name: Urine Dipstick-Ancillary (obtain specimen); Complete Time: 16:02 12/08 17:06 Order name: NPO; Complete Time: 17:29 12/08 17:39 Order name: EKG; Complete Time: 17:39 cp 12/08 17:39 Order name: EKG - Nurse/Tech cp Administered Medications: 16:02 Drug: Pepcid (famotidine) 20 mg Route: IVP; Site: left antecubital; iw 17:00 Follow up: Response: No adverse reaction jl7 16:02 Drug: Zofran (Ondansetron) 4 mg Route: IVP; Site: left antecubital; iw 17:00 Follow up: Response: No adverse reaction jl7 17:40 Drug: morphine 4 mg Route: IVP; Site: left antecubital; jl7 18:00 Follow up: Response: No adverse reaction jl7 18:00 Follow up: Response: Pain is decreased jl7 17:40 Drug: Zosyn (piperacillin-tazobactam) 3.375 grams Route: IVPB; Infused Over: 60 mins; jl7 Site: left antecubital; 18:00 Follow up: IV Status: Infusion continued upon admission jl7 18:04 Drug: NS 0.9% 1000 ml Route: IV; Rate: 500 ml/hr; Site: left antecubital; jl7 18:15 Follow up: IV Status: Infusion continued upon admission jl7 18:39 Not Given (Pt taken to OR): NS 0.9% 1000 ml IV at 100 ml/hr continuous jl7 Disposition: 22:09 Co-signature as Attending Physician, Judson Viera DO I was immediately available on-site ms3 in the Emergency Department for consultation in the care of the patient. . Disposition Summary: 12/08/21 17:30 Hospitalization Ordered Location: Telemetry/MedSurg (observation) cp Condition: Stable cp Problem: new cp Symptoms: have improved cp Bed/Room Type: Standard cp Room Assignment: cp Hospitalization Status: Observation(12/08/21 18:27) mbYordy Provider: Andriy Galloway(12/08/21 18:27) jodi Diagnosis - Acute appendicitis with generalized peritonitis cp Forms: - Medication Reconciliation Form cp - SBAR form cp Signatures: Dispatcher [employer] Ester Ingram RN RN iw Page, Corey, PA PA cp Leal, Jahala, RN RN jl7 Phi Cole RN RN jd3 Sims, Marcus DO DO ms3 Nicole Goodson mb7 Corrections: (The following items were deleted from the chart) : 17:30 Srinivasa Morton [facility] 18: 17:30 Inpatient Admission mb7 18: 17:38 Andriy Galloway mb7
--- NOTE | 2021-12-08 17:31 | ER ---
Nurse's Notes [facility] Name: Zeus Leone Age: 56 yrs Sex: Male : 1965 Arrival Date: 12/08/2021 Time: 15:07 Bed 3 Private MD: Loy Hodge Diagnosis: Acute appendicitis with generalized peritonitis Presentation: 12/08 15:14 Chief complaint: Patient states: "I have been having abdominal pain with vomiting since jd3 this morning.". Coronavirus screen: At this time, the client does not indicate any symptoms associated with coronavirus-19. Ebola Screen: No symptoms or risks identified at this time. Initial Sepsis Screen: Does the patient meet any 2 criteria? No. Patient's initial sepsis screen is negative. Does the patient have a suspected source of infection? No. Patient's initial sepsis screen is negative. Risk Assessment: Do you want to hurt yourself or someone else? Patient reports no desire to harm self or others. Onset of symptoms was December 08, 2021. 15:14 Method Of Arrival: Ambulatory jd3 15:14 Acuity: YAIR 3 jd3 Triage Assessment: 15:16 GI: Reports lower abdominal pain, upper abdominal pain, nausea, vomiting. jd3 Historical: - Allergies: 15:15 NKA; jd3 - PMHx: 15:15 Diabetes - NIDDM; Hypertension; jd3 - PSHx: 15:15 mass taken off of kidney; jd3 - Immunization history:: Adult Immunizations up to date, Client reports having NOT received the Covid vaccine. Flu vaccine is not up to date. - Social history:: Smoking status: Patient denies any tobacco usage or history of. Screenin:00 Abuse screen: Denies threats or abuse. Denies injuries from another. Nutritional jl7 screening: No deficits noted. Tuberculosis screening: No symptoms or risk factors identified. Fall Risk IV access (20 points). Total Thomas Fall Scale indicates No Risk (0-24 pts). Assessment: 17:15 General: Appears in no apparent distress. uncomfortable, Behavior is calm, cooperative, jl7 appropriate for age. Pain: Complains of pain in umbilical area Pain currently is 8 out of 10 on a pain scale. Neuro: Level of Consciousness is awake, alert, obeys commands, Oriented to person, place, time, situation. Cardiovascular: Patient's skin is warm and dry. Respiratory: Airway is patent Respiratory effort is even, unlabored, Respiratory pattern is regular, symmetrical. GI: Abdomen is round Reports lower abdominal pain, upper abdominal pain, nausea, vomiting. Derm: Skin is pink, warm \\T\\ dry. 18:15 Reassessment: Pt to OR with OR nurse via stretcher. jl7 Vital Signs: 15:16 BP 158 / 85; Pulse 75; Resp 17 S; Temp 97.7(TE); Pulse Ox 98% on R/A; Weight 114.31 kg jd3 (R); Height 5 ft. 11 in. (180.34 cm) (R); Pain 8/10; 17:15 BP 157 / 84; Pulse 79; Resp 15; Pulse Ox 97% ; jl7 18:00 BP 168 / 93; Pulse 79; Resp 15; Pulse Ox 97% ; jl7 15:16 Body Mass Index 35.15 (114.31 kg, 180.34 cm) jd3 ED Course: 15:07 Patient arrived in ED. as 15:07 Loy Hodge MD is Private Physician. as 15:07 [facility] cp 15:07 Judson Viera DO is Attending Physician. cp 15:15 Triage completed. jd3 15:16 Arm band placed on. jd3 16:13 CBC with Diff Sent. mb7 16:13 CMP Sent. mb7 16:13 Lipase Sent. mb7 16:13 Initial lab(s) drawn, by il, sent to lab. Urine collected: clean catch specimen, clear. mb7 Inserted saline lock: 20 gauge in left antecubital area, using aseptic technique. Blood collected. 16:14 Patient has correct armband on for positive identification. Bed in low position. Call mb7 light in reach. Side rails up X 1. Adult w/ patient. Warm blanket given. Pulse ox on. NIBP on. 16:50 CT Abd/Pelvis - IV Contrast Only In Process Unspecified. EDMS 17:12 Mainor Ruiz, TEJ is Primary Nurse. jl7 17:30 Srinivasa Morton MD is Hospitalizing Provider. cp 17:38 Andriy Galloway MD is Hospitalizing Provider. cp 18:00 No provider procedures requiring assistance completed. Patient admitted, IV remains in jl7 place. intact, No redness/swelling at site. 18:27 Timmy Mcintyre MD is Hospitalizing Provider. mb7 18:27 Andriy Galloway MD is Hospitalizing Provider. mb7 18:57 XRAY Chest (1 view) In Process Unspecified. EDMS Administered Medications: 16:02 Drug: Pepcid (famotidine) 20 mg Route: IVP; Site: left antecubital; iw 17:00 Follow up: Response: No adverse reaction jl7 16:02 Drug: Zofran (Ondansetron) 4 mg Route: IVP; Site: left antecubital; iw 17:00 Follow up: Response: No adverse reaction jl7 17:40 Drug: morphine 4 mg Route: IVP; Site: left antecubital; jl7 18:00 Follow up: Response: No adverse reaction jl7 18:00 Follow up: Response: Pain is decreased jl7 17:40 Drug: Zosyn (piperacillin-tazobactam) 3.375 grams Route: IVPB; Infused Over: 60 mins; jl7 Site: left antecubital; 18:00 Follow up: IV Status: Infusion continued upon admission jl7 18:04 Drug: NS 0.9% 1000 ml Route: IV; Rate: 500 ml/hr; Site: left antecubital; jl7 18:15 Follow up: IV Status: Infusion continued upon admission jl7 18:39 Not Given (Pt taken to OR): NS 0.9% 1000 ml IV at 100 ml/hr continuous jl7 Medication: 18:00 VIS not applicable for this client. 7 Outcome: 17:30 Decision to Hospitalize by Provider. cp 18:00 Admitted to OR accompanied by nurse, via stretcher, with chart. jl7 18:00 Condition: stable 18:00 Discharge instructions given to patient, Instructed on the need for admit, Demonstrated understanding of instructions. 18:33 Patient left the ED. iw Signatures: Dispatcher [employer] EDMS Dolores Bolton Irene RN RN iw Dagoberto Perera PA PA cp Mainor Ruiz RN RN jl7 Phi Cole RN RN jd3 Breneman, Mary mb7 Corrections: (The following items were deleted from the chart) 17:49 17:40 Zosyn (piperacillin-tazobactam) 3.375 grams IVPB in right antecubital over 60 jl7 mins jl7
[2021-12-08] MEDS ORDERED: MORPHINE 4 MG/ML SYR ONE (17:37)
[2021-12-08] MEDS ORDERED: NA CHLORIDE 0.9% 100 ML ONE (17:37)
[2021-12-08] MEDS ORDERED: PIPERACIL/TAZO 3.375 GM VIAL IV ONE (17:38)
[2021-12-08] MEDS ORDERED: NA CHLORIDE 0.9% 1,000 ML ONE ×2 (17:57→18:44)
--- NOTE | 2021-12-08 19:09 | P.HP ---
Certification for Inpatient Patient admitted to: Observation With expected LOS: <2 Midnights Patient will require the following post-hospital care: None Practitioner: I am a practitioner with admitting privileges, knowledge of patient current condition, hospital course, and medical plan of care. Services: Services provided to patient in accordance with Admission requirements found in Title 42 Section 412.3 of the Code of Federal Regulations Patient History Date of Service: 12/08/21 Reason for admission: Acute appendicitis History of Present Illness: 56-year-old male with history of diabetes mellitus type [id number], hypertension presents emergency department for abdominal pain, reports his pain began this morning with associated with vomiting. Patient was evaluated in the emergency department his labs were significant for leukocytosis, CT with IV contrast was performed which revealed acute appendicitis General surgery was consulted who plans on performing appendectomy this evening she is for patient to be admitted to hospitalist service for management of his hypertension and diabetes. He was given a dose of Zosyn in the ER Allergies No Known Allergies Allergy (Unverified 11/27/17 11:22) - Past Medical/Surgical History Diabetic: Yes -: HTN -: NIDDM -: Left Adrenal gland tumor removal Psychosocial/ Personal History: Lives at home with /family - Family History Family History: Reviewed- Non-Contributory - Social History Smoking Status: Never smoker Alcohol use: No CD- Drugs: No Caffeine use: Yes Place of Residence: Home Review of Systems 10-point ROS is otherwise unremarkable Gastrointestinal: Nausea, Vomiting, Abdominal Pain Physical Examination - Vital Signs Temperature: 97.7 F Blood Pressure: 158/85 Pulse: 75 Respirations: 17 - Physical Exam General: Alert, In no apparent distress, Oriented x3 HEENT: Atraumatic, PERRLA, Mucous membr. moist/pink, EOMI, Sclerae nonicteric Neck: Supple, 2+ carotid pulse no bruit, No LAD, Without JVD or thyroid abnormality Respiratory: Clear to auscultation bilaterally, Normal air movement Cardiovascular: Regular rate/rhythm, Normal S1 S2 Capillary refill: <2 Seconds Gastrointestinal: Normal bowel sounds, Tenderness (Mild/moderate RLQ tenderness) Musculoskeletal: No tenderness Integumentary: No rashes Neurological: Normal speech, Normal strength at 5/5 x4 extr, Normal tone, Normal affect - Studies Laboratory Data (last 24 hrs) 12/08/21 15:50: Sodium 137, Potassium 3.8, BUN 15, Creatinine 1.23, Glucose 157 H, Total Bilirubin 1.1 H, AST 16, ALT 35, Alkaline Phosphatase 77, Lipase 69 L 12/08/21 15:50: WBC 15.7 H, Hgb 16.6, Hct 49.2 H, Plt Count 178 Assessment and Plan - Plan Assessment: Acute Appendicitis Diabetes mellitus type [id number] Hypertension Plan: Acute Appendicitis: NPO, IVF, IV Abx, PRN pain meds and antiemetics, currently being taken to OR for surgical intervention. Diabetes mellitus type [id number]: Q6H accucheck, SSI. Hypertension: Continue home meds when appropriate. DVT PPX:SCD-lovenox when cleared by surgery Code status:Full Discharge Plan: Home Plan to discharge in: 24 Hours - Advance Directives Does patient have a Living Will: No Does patient have a Durable POA for Healthcare: No - Code Status/Comfort Care Code Status Assessed: Yes (Full code) Critical Care: No Time Spent Managing Pts Care (In Minutes): 55
--- NOTE | 2021-12-08 19:11 | P.OP ---
Date of Service: 12/08/21 Reason for consult: Abdominal pain History of present illness: 56-year-old gentleman comes into the emergency room with 18-hour history of periumbilical abdominal pain associated with anorexia. Patient had nausea and vomiting earlier today. Patient denies diarrhea, constipation, bright red blood per rectum, hematuria, dysuria, sore throat, runny nose, cough, headaches, dizziness, chest pain, fever or chills. 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 Extremity: Neurovascular intact, nontender, full range of motion Neuro: Nonfocal Diagnostic data: Blood work shows leukocytosis, CAT scan of the abdomen pelvis consistent with acute appendicitis with a dilated appendix 2.2 cmno evidence of perforation or abscess formation. Assessment: Acute appendicitis Plan/recommendation: Admit, n.p.o., IV fluids, IV antibiotics and to the OR for laparoscopic appendectomy possible open. Patient understands risk benefits alternatives and agrees to procedure. CC:
[2021-12-08] MEDS ORDERED: SUCCINYLCHOLINE 20 MG/ML (10 ML) IV ONE (19:15)
[2021-12-08] MEDS ORDERED: ROCURONIUM 50 MG/5 ML VIAL IV ONE (19:18)
[2021-12-08] MEDS ORDERED: propofoL 200 MG/20 ML VIAL IV ONE (19:18)
[2021-12-08] MEDS ORDERED: MIDAZOLAM HCL 2 MG/2 ML INJ ONE (19:18)
[2021-12-08] MEDS ORDERED: FENTANYL CITR 250 MCG/5 ML ONE (19:18)
--- NOTE | 2021-12-08 19:50 | RAD REPORT ---
EXAM DESCRIPTION: RAD - Chest Single View - 12/08/2021 6:55 pm CLINICAL HISTORY: pre-op, appendicitis COMPARISON: May 2020 TECHNIQUE: AP portable chest image was obtained 12/08/2021 6:55 pm . FINDINGS: Lungs are clear. Heart and vasculature are normal. No measurable pleural effusion and no p neumothorax. No acute bony abnormality seen. No acute aortic findings suspected. IMPRESSION: No acute cardiopulmonary process. No significant change from comparison study.
[2021-12-08] MEDS: NA CHLORIDE 0.9% 1,000 ML IV SCH (20:12)
[2021-12-08] MEDS ORDERED: MORPHINE 2 MG/ML SYR IV PRN (20:12)
[2021-12-08] MEDS ORDERED: ONDANSETRON 4 MG/2 ML VIAL IV PRN ×2 (20:12→20:45)
[2021-12-08] MEDS ORDERED: NEOSTIGMINE 1 MG/ML -10 ML VIAL ONE (20:14)
[2021-12-08] MEDS ORDERED: GLYCOPYRROLATE 0.2 MG/ML SYR ONE (20:29)
--- NOTE | 2021-12-08 20:31 | P.BOP ---
Preoperative diagnosis: Acute appendicitis Postoperative diagnosis: Acute suppurative appendicitis Primary procedure: Laparoscopic appendectomy Test Engine Mechanic: NONE,NONE Estimated blood loss: Minimal Specimen: Appendix Findings: As above Anesthesia: General Complications: None Transferred to: Recovery Room Condition: Good
--- NOTE | 2021-12-08 20:34 | P.CNS ---
Date of Consult: 12/08/21 Preop diagnosis: Acute appendicitis Postop diagnosis: Acute suppurative appendicitis Procedure performed: Laparoscopic appendectomy Surgeon: Srinivasa Morton MD Director Network Development: None Estimated blood loss: Minimal Specimen: Appendix Findings: As above Anesthesia: General Complications: None Drains: None Fluids and blood products: Nonapplicable Disposition: Recovery room Operative note: Patient brought to the OR and placed in supine position. General anesthesia begun. Patient prepped and draped in the usual sterile fashion. Marcaine 0.5% infiltrated locally. 15 blade used to make a 1 cm supraumbilical midline incision. Subcutaneous tissue divided and fascia identified and divided. #1 Vicryl stay suture placed. Peritoneal cavity entered with sharp and blunt dissection. 12 mm trocar placed into the peritoneal cavity under direct vision. Pneumoperitoneum established. Then 2 5 mm trochars placed. 1 placed in the suprapubic region and the other in the left lower Quadrant. Laparoscopy revealed acute suppurative appendicitis. No other evidence of disease identified. LigaSure used to divide the mesoappendix. Base of the appendix on the cecum clearly identified. Endo RAOUL stapling device used to divide the base of the appendix on the cecum. Then the appendix retrieved through the umbilicus via Endo Catch bag. Right lower quadrant irrigated. Effluent was clear with no evidence of bleeding or bowel injury appreciated. Subsequently, all trochars removed under direct vision. Stay sutures tied to each other to reapproximate the fascial defect. Subcutaneous wounds irrigated and bleeding controlled with cautery. 3-0 chromic used to approximate subcutaneous tissue. Karl used to close skin. Sterile dressing applied and patient taken to recovery room in good general condition. CC:
[2021-12-08] MEDS ORDERED: MEPERIDINE HCL 25 MG/ML SYR ONE (20:43)
[2021-12-08] MEDS ORDERED: HYDROMORPHONE HCL 1 MG/ML INJ IV PRN (20:45)
[2021-12-08] MEDS ORDERED: HYDROCODONE/APAP 7.5/325 MG TAB PO PRN (20:45)
[2021-12-08 21:35] VITALS: BMI 35.1
[2021-12-09] MEDS: PIPER TAZO 3.375 GM in NA CHLORIDE 0.9% 100 ML IV SCH ×2 (00:46→07:56)
[2021-12-09 04:08] LABS: Absolute Lymphocytes (CBC) 1.7 K/uL (0.7-4.9); Hematocrit 40.9 % (39.6-49.0); Lymphocytes % 12.8 % (15.3-44.8); MPV 7.7 fL (7.6-11.3); RBC Red Blood Cell Count 4.74 M/uL (4.33-5.43)
[2021-12-09 04:28] LABS: Albumin 3.4 g/dL (3.4-5.0); Bilirubin Total 1.3 mg/dL (0.2-1.0); Magnesium 1.7 mg/dL (1.8-2.4); Phosphorus 3.1 mg/dL (2.5-4.9); Potassium 3.9 mmol/L (3.5-5.1); Protein, Total 6.7 g/dL (6.4-8.2)
[2021-12-09] MEDS ORDERED: INSULIN -REGULAR HUMAN 50 UNIT/0.5 ML ML SQ SCH ×2 (07:30)
[2021-12-09] MEDS: NA CHLORIDE 0.9% 1,000 ML IV SCH (07:57)
--- NOTE | 2021-12-09 08:05 | P.PN ---
Date of Service: 12/09/21 Subjective: Patient is awake and alert. Patient is tolerating diet. Pain is controlled. Objective: Vital signs stable, afebrile WBC is decreasing towards normal Abdomen: Soft, nondistended, nontender with bowel sounds present. Dressing is clean dry and intact. Assessment: Status post laparoscopic appendectomy Plan: As patient is tolerating diet, ambulating, pain controlled on p.o. pain medication, afebrile; therefore, patient will be discharged home. Discharge instructions given. Follow-up with me in 1 week. CC:
--- NOTE | 2021-12-09 09:09 | EKG ---
Test Date: 2021-12-08 Test Time: 18:56:42 Rewards Consultant: RT-O MEASUREMENT RESULTS: Intervals: Rate: 81 GA: 172 QRSD: 108 QT: 382 QTc: 443 Fults: P: 40 GA: 172 QRS: -47 T: 48 INTERPRETIVE STATEMENTS: Normal sinus rhythm Left anterior fascicular block Abnormal ECG No previous ECG available for comparison Electronically Signed On 12-09-21 09:08:04 CDT by Roe Lamb
[2021-12-09 09:43] VITALS: BP 127/72; TEMP 98.6
[2021-12-09 21:12] VITALS: O2SAT 92
== END 2021-12-09 10:12 | disposition home or self-care (01) ==
LOC: ER 15:05 → 2ND 20:50
PROVIDERS: ADMIT Internal Medicine; ATTEND Internal Medicine
PROC: 0DTJ4ZZ Resection of Appendix, Percutaneous Endoscopic Approach (ICD-10-PCS; principal; 2021-12-08 18:15)
DX: K35.80 Unspecified acute appendicitis (principal); E11.9 Type 2 diabetes mellitus without complications; I10 Essential (primary) hypertension; R63.0 Anorexia; Z68.35 Body mass index [BMI] 35.0-35.9, adult; Z90.5 Acquired absence of kidney; Z28.310 Unvaccinated for COVID-19; Z20.822 Contact with and (suspected) exposure to COVID-19
CPT/HCPCS: 96365; 93005; 85025 ×2; 36415; 83735; 84100; 82947 ×3; 88304; 83690; 80053 ×2; 74177; 71045; 94010; 96375; 99285; 44970; U0003; Q9967; J2704; J2710; J0330; J2543 ×3; J2250; J3010; J2175; J7030 ×4; J2405; J3490; G0378 ×3; 81003; 81015

== ENCOUNTER 2024-11-03 19:33 | Observation (INO) | payer OTHER ==
--- OUTSIDE RECORDS SUMMARY | 2024-11-03 19:36 | XMS REPORT | Continuity of Care Document ---
Author Name Unknown Address [address] [facility] [address] [place] [address] Organization [facility] [place] Address 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 Name Role Phone Osbaldo Hernandez MD Primary Care Physician [phone] Osbaldo Hernandez MD Attending Clinician [phone] Anaya Barry Attending Clinician [phone] Royce Desai DO Attending Clinician [phone] Juan Miguel MAGUIRE, Araceli Sanders Attending Clinician + [phone] Eve Dudley Attending Clinician [phone] Doctor Unassigned, [place] Attending Clinician U navailable ANAYA KELLY Attending Clinician Unavailable Pob, [facility] Attending Clinician Unavailabl e Provider, [facility] Attending Clinician Un available Payers Payer Name Policy Type Policy Number Effective Date Expirati on Date Source Problems Condition Name Condition Details Condition Category Status Onset Date Resolution Date Last Treatment Date Treating Clinician Comments Source Obesity (BMI 30-39.9) Obesity (BMI 30-39.9) Disease Active 11-16 00:00: 00 [facility] Type 2 diabetes mellitus without complicati on Type 2 diabetes mellitus without complicati on Disease Active 10-07 00:00: 00 [facility] Other hyperlipid emia Other hyperlipid emia Disease Active 10-07 00:00: 00 [facility] Uncontroll ed hypertensi on Uncontroll ed hypertensi on Disease Active 10-07 00:00: 00 [facility] Paresthesi a of both feet Paresthesi a of both feet Disease Active 10-07 00:00: 00 [facility] Lower extremity edema Lower extremity edema Disease Active 10-07 00:00: 00 [facility] Allergies, Adverse Reactions, Alerts Allergy Name Allergy Type Status Severity Reaction(s) Onset Date Inactive Date Treating Clinician Comments Source NO KNOWN ALLERGIE S Drug Class Active [facility] Social History Social Habit Start Date Stop Date Quantity Comments Source Exposure to SARS-CoV-2 (event) Not sure [facility] History SDOH Alcohol Frequency [facility] History SDOH Alcohol Std Drinks [facility] History SDOH Alcohol Binge [facility] Alcohol intake 2020-05-23 00:00:00 2020-05-23 00:00:00 Current drinker of alcohol (finding) [facility] Tobacco use and exposure 2017-10-07 00:00:00 2017-10-07 00:00:00 Never used [facility] Alcohol Comment 2017-10-07 00:00:00 2017-10-07 00:00:00 2 per month [facility] Sex Ass[birth year] At 1965 00:00:00 1965 00:00:00 [facility] Smoking Status Start Date Stop Date Source Never smoker [facility] Medications Ordered Medication Name Filled Medication Name Start Date Stop Date Current Medication? Ordering Clinician Indication Dosage Frequency Signature (SIG) Comments Components Source atorvastati n 10 mg tablet 2020-07 00:00: 00 Yes [id number] 10mg Take 1 tablet by mouth at bedtime. MUST BE SEEN FOR FURTHER REFILLS [facility] atorvastati n 10 mg tablet 03-20 00:00: 00 05-13 00:00 :00 No [id number] 10mg Take 1 tablet by mouth at bedtime. [facility] LISINOPRIL 20 mg tablet 03-14 00:00: 00 Yes [id number] TAKE 1 TABLET BY MOUTH TWICE A DAY [facility] ATORVASTATI N 10 mg tablet 0 8- 00:00: 00 Yes [id number] TAKE 1 TABLET BY MOUTH EVERYDAY AT BEDTIME [facility] LISINOPRIL 20 mg tablet 0 8- 00:00: 00 03-14 00:00 :00 No [id number] TAKE 1 TABLET BY MOUTH TWICE A DAY [facility] ATORVASTATI N 10 mg tablet 0 7 00:00: 00 Yes [id number] TAKE 1 TABLET BY MOUTH EVERYDAY AT BEDTIME [facility] LISINOPRIL 20 mg tablet 0 7 00:00: 00 Yes [id number] TAKE 1 TABLET BY MOUTH TWICE A DAY [facility] METFORMIN 1,000 mg tablet 01-17 00:00: 00 Yes [id number] TAKE 1 TABLET BY MOUTH TWICE A DAY WITH MEALS [facility] LISINOPRIL 20 mg tablet 0 6 00:00: 00 01-20 00:00 :00 No [id number] TAKE 1 TABLET BY MOUTH TWICE A DAY [facility] ATORVASTATI N 10 mg tablet 0 609 00:00: 00 01-20 00:00 :00 No [id number] TAKE 1 TABLET BY MOUTH EVERYDAY AT BEDTIME [facility] hydroCHLORO thiazide 12.5 mg capsule 0 4-23 00:00: 00 Yes [id number] 12.5mg Take 1 capsule by mouth daily. [facility] ATORVASTATI N 10 mg tablet 0 2-09 00:00: 00 12-25 00:00 :00 No [id number] TAKE 1 TABLET BY MOUTH EVERYDAY AT BEDTIME [facility] ATORVASTATI N 10 mg tablet 0 1- 00:00: 00 Yes [id number] TAKE 1 TABLET BY MOUTH EVERYDAY AT BEDTIME [facility] lisinopriL 20 mg tablet 0 1-26 00:00: 00 12-25 00:00 :00 No [id number] 20mg Take 1 tablet by mouth 2 (two) times daily. [facility] hydroCHLORO thiazide 12.5 mg capsule 08-13 00:00: 00 11-08 00:00 :00 No [id number] 12.5mg Take 1 capsule by mouth daily. [facility] DICYCLOMINE 10 mg capsule 2019-07 00:00: 00 Yes [id number] 20mg TAKE 2 CAPSULES BY MOUTH 3 (THREE) TIMES DAILY. [facility] CARVEDILOL 12.5 mg tablet 2019-07 00:00: 00 Yes [id number] TAKE 1 TABLET BY MOUTH TWICE A DAY WITH MEALS [facility] METFORMIN 1,000 mg tablet 2019-07 00:00: 00 01-17 00:00 :00 No [id number] TAKE 1 TABLET BY MOUTH TWICE A DAY WITH MEALS [facility] DICYCLOMINE 10 mg capsule 2019-07 00:00: 00 07-15 00:00 :00 No [id number] 20mg TAKE 2 CAPSULES BY MOUTH 3 (THREE) TIMES DAILY. [facility] ATORVASTATI N 10 mg tablet 2019-07 00:00: 00 08-13 00:00 :00 No [id number] TAKE 1 TABLET BY MOUTH EVERYDAY AT BEDTIME [facility] dicyclomine (BENTYL) 10 mg capsule 2019-07 00:00: 00 07-01 00:00 :00 No [id number] 20mg Take 2 capsules by mouth 3 (three) times daily. [facility] hydroCHLORO thiazide 12.5 mg capsule 2019-07 00:00: 00 08-13 00:00 :00 No [id number] 12.5mg Take 1 capsule by mouth daily for 90 days. [facility] lisinopriL 20 mg tablet 2019-07 00:00: 00 08-13 00:00 :00 No [id number] 20mg Take 1 tablet by mouth 2 (two) times daily for 90 days. [facility] atorvastati n 10 mg tablet 2019-07 00:00: 06-17 00:00 :00 No [id number] 10mg Take 1 tablet by mouth at bedtime. [facility] hydroCHLORO thiazide 25 mg tablet 2019-07 00:00: 05-23 00:00 :00 No [id number] 25mg Take 1 tablet by mouth daily for 90 days. [facility] acetaminoph en-codeine 300-30 mg tablet 2019-07 00:00: 00 Yes [facility] clindamycin 150 mg capsule 2019-07 00:00: 00 Yes [facility] dicyclomine (BENTYL) 10 mg capsule 2019-07 0 00:00: 06-06 00:00 :00 No [id number] 20mg Take 2 capsules by mouth 3 (three) times daily for 30 days. [facility] HYDROCHLORO THIAZIDE 12.5 mg capsule 2019-07 00:00: 05-23 00:00 :00 No [id number] TAKE 1 CAPSULE BY MOUTH EVERY DAY [facility] CARVEDILOL 12.5 mg tablet 03-29 00:00: 00 07-05 00:00 :00 No [id number] TAKE 1 TABLET BY MOUTH TWICE A DAY WITH MEALS [facility] HYDROCHLORO THIAZIDE 12.5 mg capsule 02-11 00:00: 00 05-14 00:00 :00 No [id number] TAKE 1 CAPSULE BY MOUTH EVERY DAY [facility] ATORVASTATI N 10 mg tablet 15 00:00: 00 05-23 00:00 :00 No TAKE 1 TABLET BY MOUTH EVERYDAY AT BEDTIME [facility] ATORVASTATI N 10 mg tablet 01-08 00:00: 00 Yes TAKE 1 TABLET BY MOUTH EVERYDAY AT BEDTIME [facility] METFORMIN 1,000 mg tablet 01-07 00:00: 00 07-03 00:00 :00 No [id number] TAKE 1 TABLET BY MOUTH TWICE A DAY WITH MEALS [facility] ATORVASTATI N 10 mg tablet - 00:00: 01-08 00:00 :00 No TAKE 1 TABLET BY MOUTH EVERYDAY AT BEDTIME [facility] HYDROCHLORO THIAZIDE 12.5 mg capsule 11-20 00:00: 00 02-11 00:00 :00 No [id number] TAKE 1 CAPSULE BY MOUTH EVERY DAY [facility] rosuvastati n 10 mg tablet 11-13 17:06: 11-13 00:00 :00 No 10mg Take 10 mg by mouth at bedtime. [facility] ATORVASTATI N 10 mg tablet 11-13 00:00: 00 12-11 00:00 :00 No TAKE 1 TABLET BY MOUTH EVERYDAY AT BEDTIME [facility] HYDROCHLORO THIAZIDE 12.5 mg capsule 10-26 00:00: 11-20 00:00 :00 No [id number] TAKE 1 CAPSULE BY MOUTH EVERY DAY [facility] ATORVASTATI N 10 mg tablet 09-11 00:00: 00 11-13 00:00 :00 No TAKE 1 TABLET BY MOUTH EVERYDAY AT BEDTIME [facility] atorvastati n 10 mg tablet 08-14 00:00: 00 Yes 10mg Take 1 tablet by mouth at bedtime. [facility] ATORVASTATI N 10 mg tablet 2018-07 00:00: 00 08-14 00:00 :00 No TAKE 1 TABLET BY MOUTH EVERYDAY AT BEDTIME [facility] SITagliptin 100 mg tablet 2018-07 00:00: 00 Yes [id number] 100mg Take 1 tablet by mouth daily. [facility] hydroCHLORO thiazide 12.5 mg capsule 2018-07 00:00: 00 10-26 00:00 :00 No [id number] 12.5mg Take 1 capsule by mouth daily. [facility] rosuvastati n 10 mg tablet 2018-07 22:00: 45 Yes 10mg Take 10 mg by mouth at bedtime. [facility] carvedilol 12.5 mg tablet 2018-07 00:00: 00 03-29 00:00 :00 No [id number] TAKE 1 TABLET BY MOUTH TWICE A DAY WITH MEALS [facility] metFORMIN 1,000 mg tablet 2018-07 2-04 00:00: 00 01-07 00:00 :00 No [id number] 1000mg Take 1 tablet by mouth 2 (two) times daily with meals. [facility] LISINOPRIL 20 mg tablet 2018-07 0-28 00:00: 05-23 00:00 :00 No [id number] TAKE 1 TABLET BY MOUTH TWICE A DAY [facility] atorvastati n 10 mg tablet 03-24 00:00: 00 Yes 10mg Take 1 tablet by mouth at bedtime. [facility] metFORMIN 1,000 mg tablet 03-10 00:00: 00 Yes 1000mg Take 1 tablet by mouth 2 (two) times daily with meals. [facility] atorvastati n 10 mg tablet 02-24 00:00: 03-24 00:00 :00 No 10mg Take 1 tablet by mouth at bedtime. [facility] metFORMIN 1,000 mg tablet 02-13 00:00: 00 03-10 00:00 :00 No 1000mg Take 1 tablet by mouth 2 (two) times daily with meals. [facility] atorvastati n 10 mg tablet 7 00:00: 00 Yes 10mg Take 1 tablet by mouth at bedtime. [facility] lisinopril 20 mg tablet 5-10 00:00: 00 Yes [id number] 20mg Take 1 tablet by mouth 2 (two) times daily. [facility] carvedilol 12.5 mg tablet 5-10 00:00: 00 Yes 12.5mg Take 1 tablet by mouth 2 (two) times daily with meals. [facility] amoxicillin -clavulanat e (AUGMENTIN) 875-125 mg per tablet 1-24 00:00: 00 Yes [id number] 1{tbl} Take 1 tablet by mouth 2 (two) times daily. [facility] codeine-gua ifenesin (CHERATUSSI N AC) 10-100 mg/5 mL solution 08-11 00:00: 00 Yes [id number] 10mL Take 10 mL by mouth every 6 (six) hours as needed for Cough. [facility] sildenafil 100 mg tablet 03-09 00:00: 00 Yes 100mg Take 1 tablet by mouth as needed for Other (prn, sexual activity). [facility] metFORMIN 1,000 mg tablet 03-09 00:00: 00 02-13 00:00 :00 No 1000mg Take 1 tablet by mouth 2 (two) times daily with meals. [facility] ONETOUCH VERIO strip 01-25 00:00: 00 Yes TEST BLOOD SUGAR 2 TIMES A DAY [facility] Vital Signs Vital Name Observation Time Observation Value Comments S oureric Systolic blood pressure 2020-05-23 20:04:00 162 mm[Hg] [facility] Diastolic blood pressure 2020-05-23 20:04:00 82 mm[Hg] [facility] Heart rate 2020-05-23 20:04:00 75 /min [facility] Body temperature 2020-05-23 20:04:00 36.89 [facility] Body height 2020-05-23 20:04:00 180.3 cm [facility] Body weight 2020-05-23 20:04:00 119.477 kg [facility] BMI 2020-05-23 20:04:00 36.74 kg/m2 [facility] Oxygen saturation in Arterial blood by Pulse oximetry 2020-05-23 20:04:00 99 /min [facility] Systolic blood pressure 2020-05-23 20:04:00 162 mm[Hg] [facility] Diastolic blood pressure 2020-05-23 20:04:00 82 mm[Hg] [facility] Heart rate 2020-05-23 20:04:00 75 /min [facility] Body temperature 2020-05-23 20:04:00 36.89 [facility] Body height 2020-05-23 20:04:00 180.3 cm [facility] Body weight 2020-05-23 20:04:00 119.477 kg [facility] BMI 2020-05-23 20:04:00 36.74 kg/m2 [facility] Oxygen saturation in Arterial blood by Pulse oximetry 2020-05-23 20:04:00 99 /min [facility] Systolic blood pressure 2020-05-14 16:38:00 173 mm[Hg] [facility] Diastolic blood pressure 2020-05-14 16:38:00 94 mm[Hg] [facility] Heart rate 2020-05-14 16:37:00 72 /min [facility] Body temperature 2020-05-14 16:37:00 36.72 [facility] Respiratory rate 2020-05-14 16:37:00 20 /min [facility] Body height 2020-05-14 16:37:00 180.3 cm [facility] Body weight 2020-05-14 16:37:00 117.935 kg [facility] BMI 2020-05-14 16:37:00 36.26 kg/m2 [facility] Oxygen saturation in Arterial blood by Pulse oximetry 2020-05-14 16:37:00 96 /min [facility] Procedures Procedure Date / Time Performed Performing Clinicia n Source EXTERNAL PROVIDER RECORDS 2020-07-01 06:01:00 Doctor Unassigned, [place] [facility] CT ABDOMEN WO CONTRAST 2020-05-14 19:34:45 Anaya Kelly [facility] CBC WITH DIFF 2020-05-14 17:36:00 [facility] Encounters Start Date/Time End Date/Time Encounter Type Admission Type Attending Clinicians Care Facility Care Department Encounter ID Source 2021-07-18 00:00:00 2021-07-18 00:00:00 Osbaldo Hu [facility] ONE [id number] 350.1.13.10 4.2.7.2.686 [id number] [facility] 2021-07-17 00:00:00 2021-07-17 00:00:00 Osbaldo Hu [facility] ONE 1..114 350.1.13.10 4.2.7.2.686 [id number] [facility] 2021-06-12 00:00:00 2021-06-12 00:00:00 RefOsbaldo Seth [facility] OFF[facility] BUILD[facility] 1..114 350.1.13.10 4.2.7.2.686 [id number] [facility] 2021-05-13 00:00:00 2021-05-13 00:00:00 Anaya Bush [facility] Brian?[facility] Medical Office Building 1..114 350.1.13.10 4.2.7.2.686 [id number] [facility] 2021-05-08 00:00:00 2021-05-08 00:00:00 [facility] One 1..114 350.1.13.10 4.2.7.2.686 [id number] [facility] 2021-04-11 00:00:00 2021-04-11 00:00:00 Osbaldo Hu [facility] Brian?[facility] Medical Office Building 1..114 350.1.13.10 4.2.7.2.686 [id number] [facility] 2021-03-27 00:00:00 2021-03-27 00:00:00 Osbaldo Hu [facility] Building One 1.84.114 350.1.13.10 4.2.7.2.686 [id number] [facility] 2021-03-18 00:00:00 2021-03-18 00:00:00 Refill Hernandez, [facility] Medical Office Building 1.840.114 350.1.13.10 4.2.7.2.686 [id number] [facility] 2021-03-14 00:00:00 2021-03-14 00:00:00 Refill Anaya Kelly [facility] Office Building One 1.840.114 350.1.13.10 4.2.7.2.686 [id number] [facility] 2021-02-15 00:00:00 2021-02-15 00:00:00 Refill Osbaldo Hernandez [facility] Office Building One 1.840.114 350.1.13.10 4.2.7.2.686 [id number] [facility] 2021-01-18 00:00:00 2021-01-18 00:00:00 Refill David [facility] Office Building One 1.840.114 350.1.13.10 4.2.7.2.686 [id number] [facility] 2021-01-17 00:00:00 2021-01-17 00:00:00 Refcherie Hernandez Osbaldo [facility] Office Building One 1.0.114 350.1.13.10 4.2.7.2.686 [id number] [facility] 2020-12-25 00:00:00 2020-12-25 00:00:00 Refill David Osbaldo [facility] Office Building One 1.840.114 350.1.13.10 4.2.7.2.686 [id number] [facility] 2020-11-30 00:00:00 2020-11-30 00:00:00 Refill Osbaldo Hernandez [facility] Office Building One 1.840.114 350.1.13.10 4.2.7.2.686 [id number] [facility] 2020-11-08 00:00:00 2020-11-08 00:00:00 Telephone Osbaldo Hernandez [facility] Office Building One 1.840.114 350.1.13.10 4.2.7.2.686 [id number] [facility] 2020-10-07 00:00:00 2020-10-07 00:00:00 Refill David Osbaldo [facility] Office Building One 1.840.114 350.1.13.10 4.2.7.2.686 [id number] [facility] 2020-09-28 00:00:00 2020-09-28 00:00:00 Patient Outreach Ryoce Desai [facility] 1.840.114 350.1.13.10 4.2.7.2.686 [id number] [facility] 2020-08-13 00:00:00 2020-08-13 00:00:00 Refill David Osbaldo [facility] Office Building One 1.840.114 350.1.13.10 4.2.7.2.686 [id number] [facility] 2020-08-13 00:00:00 2020-08-13 00:00:00 Refill Araceli Bullard [facility] Office Building One 1.2840.114 350.1.13.10 4.2.7.2.686 [id number] [facility] 2020-07-15 00:00:00 2020-07-15 00:00:00 Refill Araceli Bullard [facility] Office Building One 1..114 350.1.13.10 4.2.7.2.686 [id number] [facility] 2020-07-15 00:00:00 2020-07-15 00:00:00 Telephone Osbaldo Hernandez [facility] Office Building One 1..114 350.1.13.10 4.2.7.2.686 [id number] [facility] 2020-07-14 00:00:00 2020-07-14 00:00:00 Refill sObaldo Hernandez [facility] Office Building One 1..114 350.1.13.10 4.2.7.2.686 [id number] [facility] 2020-07-04 00:00:00 2020-07-04 00:00:00 Refill David Osbaldo [facility] Office Building One 1..114 350.1.13.10 4.2.7.2.686 [id number] [facility] 2020-07-03 00:00:00 2020-07-03 00:00:00 Refill Christy Eve Tommy [facility] Office Building One 1.114 350.1.13.10 4.2.7.2.686 [id number] [facility] 2020-07-01 00:00:00 2020-07-01 00:00:00 Orders Only Doctor Unassigned, [place] [facility] 1..114 350.1.13.10 4.2.7.2.686 [id number] [facility] 2020-07-01 00:00:00 2020-07-01 00:00:00 Refill Osbaldo Hernandez [facility] Office Building One 1.2.840.114 350.1.13.10 4.2.7.2.686 [id number] [facility] 2020-06-17 00:00:00 2020-06-17 00:00:00 Telephone Osbaldo Hernandez [facility] Office Building One 1.2.840.114 350.1.13.10 4.2.7.2.686 [id number] [facility] 2020-06-15 00:00:00 2020-06-15 00:00:00 [facility] One 1.2.840.114 350.1.13.10 4.2.7.2.686 [id number] [facility] 2020-06-06 00:00:00 2020-06-06 00:00:00 Refill Osbaldo Hernandez [facility] Office Building One 1.2.840.114 350.1.13.10 4.2.7.2.686 [id number] 2020-06-06 00:00:00 2020-06-06 00:00:00 Refill Osbaldo Hernandez [facility] Office Building One 1.2.840.114 350.1.13.10 4.2.7.2.686 [id number] [facility] 2020-05-23 13:54:55 2020-05-23 14:41:19 Office Visit Anaya Kelly [facility] Office Building One 1.2.840.114 350.1.13.10 4.2.7.2.686 [id number] 2020-05-23 13:54:55 2020-05-23 14:41:19 Office Visit Anaya Kelly [facility] Office Building One 1.2.840.114 350.1.13.10 4.2.7.2.686 [id number] [facility] 2020-05-23 14:00:00 2020-05-23 14:00:00 Outpatient R ANAYA KELLY [facility] [id number] [facility] 2020-05-15 00:00:00 2020-05-15 00:00:00 Telephone Osbaldo Hernandez [facility] Office Building One 1.20.114 350.1.13.10 4.2.7.2.686 [id number] [facility] 2020-05-14 12:45:59 2020-05-14 23:59:00 Hospital Encounter Anaya Kelly [facility] 1.2840.114 350.1.13.10 4.2.7.2.686 [id number] [facility] 2020-05-14 12:24:05 2020-05-14 12:39:05 Disposal Man Visit Pob, Adc Lab Main Anaya Kelly [facility] Building 1.20.114 350.1.13.10 4.2.7.2.686 [id number] [facility] 2020-05-14 11:22:14 2020-05-14 12:08:44 Urgent Care Provider, [facility] One 1.20.114 350.1.13.10 4.2.7.2.686 [id number] [facility] 2020-05-14 11:20:00 2020-05-14 11:20:00 Outpatient R [facility] [id number] [facility] 2020-05-14 00:00:00 2020-05-14 00:00:00 Letter (Out) Doctor Unassigned, [place] [facility] [id number] 350.1.13.10 4.2.7.2.686 [id number] [facility] 2020-05-09 00:00:00 2020-05-09 00:00:00 Refill Eve Harrison [facility] Office Building One 1.2.840.114 350.1.13.10 4.2.7.2.686 [id number] [facility] 2020-03-28 00:00:00 2020-03-28 00:00:00 Refill Eve Harrison [facility] Office Building One 1.2840.114 350.1.13.10 4.2.7.2.686 [id number] [facility] 2020-02-12 00:00:00 2020-02-12 00:00:00 Refill Eev Harrison [facility] Office Building One 1.2840.114 350.1.13.10 4.2.7.2.686 [id number] [facility] 2020-01-31 00:00:00 2020-01-31 00:00:00 Refill Osbaldo Hernandez [facility] Office Building One 1.2.840.114 350.1.13.10 4.2.7.2.686 [id number] [facility] 2020-01-09 00:00:00 2020-01-09 00:00:00 Refill Osbaldo Hernandez [facility] Office Building One 1.2.840.114 350.1.13.10 4.2.7.2.686 [id number] [facility] 2020-01-08 00:00:00 2020-01-08 00:00:00 Refill Eve Harrison [facility] Office Building One 1.2840.114 350.1.13.10 4.2.7.2.686 [id number] [facility] 2019-12-09 00:00:00 2019-12-09 00:00:00 Refill Osbaldo Hernandez [facility] Office Building One 1.2840.114 350.1.13.10 4.2.7.2.686 [id number] [facility] 2019-11-22 00:00:00 2019-11-22 00:00:00 Refill Eve Harrison [facility] Office Building One 1.2.840.114 350.1.13.10 4.2.7.2.686 [id number] [facility] 2019-11-21 00:00:00 2019-11-21 00:00:00 Refill Eve Harrison [facility] Office Building One 1.2840.114 350.1.13.10 4.2.7.2.686 [id number] [facility] 2019-11-14 00:00:00 2019-11-14 00:00:00 Refill Osbaldo Hernandez [facility] Office Building One 1.2840.114 350.1.13.10 4.2.7.2.686 [id number] [facility] 2019-10-27 00:00:00 2019-10-27 00:00:00 Refill Eve Harrison [facility] Office [facility] [id number] [facility] 2019-10-07 00:00:00 2019-10-07 00:00:00 Refill Osbaldo Hernandez [facility] Office [facility] One [id number] [facility] 2019-09-09 00:00:00 2019-09-09 00:00:00 Osbaldo Hu [facility] Office [facility] One [id number] [facility] 2019-08-14 00:00:00 2019-08-14 00:00:00 Osbaldo Hu [facility] [id number] [facility] 2019-03-23 00:00:00 2019-03-23 00:00:00 Donny Hernandez [facility] Office [facility] One [id number] [facility] 2019-03-10 00:00:00 2019-03-10 00:00:00 Donny Hernandez [facility] One [id number] [facility] 2019-02-24 00:00:00 2019-02-24 00:00:00 Donny Hernandez [facility] [id number] [facility] 2019-02-13 00:00:00 2019-02-13 00:00:00 Donny Hernandez [facility] [id number] [facility] Results Test Description Test Time Test Comments Results Result Comments Source CT ABDOMEN WO CONTRAST 19:49:23 CT Abdomen without contrast. CLINICAL HISTORY: Abdominal pain. TECHNIQUE: Multidetector helical CT acquisition was obtained [...] gallstone without any acute changes of cholecystitis. [facility]
[2024-11-03 20:57] LABS: Absolute Eosinophils 0.2 K/uL (0-0.5); Absolute Lymphocytes (CBC) 1.9 K/uL (0.7-4.9); Absolute Monocytes 0.6 K/uL (0.1-1.3); Absolute Neutrophil 6.2 K/uL (1.8-8.0); Basophils % 0.4 % (0-1.3); Eosinophils % 2.7 % (0-4.4); Hematocrit 46.2 % (39.6-49.0); Hemoglobin 16.4 g/dL (13.6-17.9); Lymphocytes % 21.4 % (15.3-44.8); MCH 30.8 pg (27.0-35.0); MCHC 35.5 g/dL (32.0-36.0); MCV 86.7 fL (80-100); MPV 8.5 fL (7.6-11.3); Monocytes % 6.8 % (3.3-12.3); Neutrophils % 68.7 % (41.7-73.7); Nucleated Red Blood Cells % 0.1 % (0-0); PT Prothrombin Time 11.6 SECONDS (10-13.0); Platelets 162 thou/uL (152-406); Protime INR 1.02; RBC Red Blood Cell Count 5.33 M/uL (4.33-5.43); Red Cell Distribution Width 14.2 % (12.1-15.2)
[2024-11-03 21:06] LABS: Albumin/Globulin Ratio 1.1 (1.1-1.8); Anion Gap 9.1 mEq/L (5.0-15.0); Bilirubin Direct 0.2 mg/dL (0-0.2); Bilirubin Indirect, Calculated 0.5 mg/dL (0.2-0.8); Bilirubin Total 0.7 mg/dL (0.2-1.0); Globulin 3.5 g/dL (2.3-3.5); Potassium 4.1 mEq/L (3.5-5.1); Protein, Total 7.5 g/dL (6.4-8.2); Troponin High Sensitivity 19.8 pg/mL (<58.9)
--- NOTE | 2024-11-03 21:09 | RAD REPORT ---
Procedure: Chest Single View HISTORY: Dizziness COMPARISON: 2021 FINDINGS: The lungs appear clear of acute infiltrate. No significant pleural effusion noted. The heart is normal size. IMPRESSION: No acute abnormality is displayed.
--- NOTE | 2024-11-03 21:10 | RAD REPORT ---
EXAM: CT brain without contrast HISTORY: Dizziness COMPARISON: None TECHNIQUE: Multiple contiguous axial images were obtained and a CT of the brain without contrast.. Sagittal and coronal reconstruction performed. Automated exposure control, adjustment of the mA and/or kV according to patient size, and/or iterative reconstruction. Unless otherwise specified, incidental f indings do not require dedicated imaging follow-up FINDINGS: An intracranial bleed is not seen Ventricles are normal caliber No extra-axial fluid collection noted Mild low-density paraventricular white matter probably mild ischemic changes secondary to small vesse l disease. No fluid within the visualized sinuses or mastoids noted. IMPRESSION: No acute intracranial abnormality noted. If the patient continues to have symptoms to suggest an acute intracranial abnormality then MRI of th e brain would be recommended.
[2024-11-03] MEDS ORDERED: ONDANSETRON 4 MG/2 ML VIAL IV PRN (21:20)
[2024-11-03] MEDS ORDERED: ACETAMINOPHEN 325 MG TABLET PO PRN (21:20)
--- NOTE | 2024-11-03 21:20 | P.HP ---
Certification for Inpatient Patient admitted to: Observation With expected LOS: <2 Midnights Practitioner: I am a practitioner with admitting privileges, knowledge of patient current condition, hospital course, and medical plan of care. Services: Services provided to patient in accordance with Admission requirements found in Title 42 Section 412.3 of the Code of Federal Regulations Patient History Date of Service: 11/03/24 Reason for admission: Syncope History of Present Illness: 59-year-old male with past medical history hypertension, hyperlipidemia, diabetes brought to ER with dizziness and presyncopal episodes. Which started 2 weeks ago insidiously and has been feeling dizzy even with minimal physical exertion and postural changes. Patient had several episodes of near syncope and had multiple falls recently. Today he got up to go to the bathroom and fell after he had similar episode. Denies any loss of consciousness. Denies any chest pain or palpitations. No fever or chills. Denies any nausea vomiting or diarrhea. Patient was alert assessed in the ER and was admitted for further management of presyncopal episodes Allergies No Known Allergies Allergy (Unverified 11/27/17 11:22) Home medications list reviewed: Yes Home Medications: Amlodipine [Norvasc*] 10 mg PO DAILY 12/09/21 Atorvastatin Calcium [Lipitor*] 20 mg PO DAILY 12/09/21 Dapagliflozin Propanediol [Farxiga] 10 mg PO DAILY 12/09/21 Gabapentin 300 mg PO TID 12/09/21 Losartan/Hydrochlorothiazide [Losartan-Hctz 100-25 mg Tab] 1 tab PO DAILY 12/09/21 Metformin ER [Glucophage ER*] 1,000 mg PO BID 12/09/21 Semaglutide [Ozempic] 0.5 mg SQ EVERY 7TH DAY 12/09/21 icosapent ethyL [Vascepa 1 gm Cap] 2 gm PO BIDWM 12/09/21 - Past Medical/Surgical History Diabetic: Yes Past Medical History: Reviewed- Non-Contributory -: HTN -: NIDDM Past Surgical History: Reviewed- Non-Contributory -: Left Adrenal gland tumor removal -: appendectomy Psychosocial/ Personal History: Lives at home with /family - Family History Family History: Reviewed- Non-Contributory - Social History Smoking Status: Never smoker Alcohol use: No CD- Drugs: No Caffeine use: Yes Review of Systems 10-point ROS is otherwise unremarkable Other: Constitutional: Reports: generalized weakness. Skin: Denies: rash. Allergy/Immun: Denies: rhinorrhea, sneezing. Eyes: Denies: visual loss/blurred. ENT: Denies: earache, nasal congestion. Respiratory: Denies: non productive cough. Cardiovascular: Denies: chest pain, palpitations. GI: Denies: diarrhea, nausea. : Denies: dysuria. Musculoskeletal: Reports: arthritis. Denies: extremity pain. Heme: Denies: bleeding. Endocrine: Denies: polydipsia. Neuro: Reports: dizziness, gait problem, lightheaded, spinning sensation. Psych: Reports: anxiety. All systems rev & neg: except as noted Physical Examination - Vital Signs Temperature: 98.4 F Blood Pressure: 190/82 Pulse: 58 Respirations: 18 Pulse Ox (%): 94 - Physical Exam General: Alert, Oriented x3, Mild distress HEENT: Atraumatic, Normocephalic Neck: Supple, No Thyromegaly Respiratory: Clear to auscultation bilaterally, Normal air movement Cardiovascular: Regular rate/rhythm, Normal S1 S2 Capillary refill: <2 Seconds Gastrointestinal: Soft and benign, W/out hepatosplenomegaly Musculoskeletal: No clubbing, No swelling Integumentary: No rashes Neurological: Normal speech, Normal strength at 5/5 x4 extr, Cranial nerves 3-12 intact, Normal reflexes 2+, Normal affect Lymphatics: No axilla or inguinal lymphadenopathy - Studies Laboratory Data (last 24 hrs) 11/03/24 11/03/24 11/03/24 20:26 20:26 20:26 WBC 9.10 Hgb 16.4 Hct 46.2 Plt Count 162 PT 11.6 INR 1.02 Sodium 138 Potassium 4.1 BUN 17 Creatinine 1.36 H Glucose 201 H Magnesium 2.0 Total Bilirubin 0.7 AST 18 ALT 31 Alkaline Phosphatase 81 Assessment and Plan - Plan Syncope No focal weakness Started on aspirin and statin CT findings noted Monitor under telemetry Syncopal workup Will get an echocardiogram Cardiology consulted Hypertension Antihypertensives titrated Continue home medications and titrate as needed Patient is bradycardic Will hold atenolol for now Hyperlipidemia Continue statin Acute kidney injury Monitor renal parameters Electrolytes monitor and replace accordingly Diabetes Insulin sliding scale Accu-Chek before every meal and at bedtime GI/DVT prophylaxis Advanced directive full code Discharge Plan: Home Plan to discharge in: 48 Hours - Advance Directives Does patient have a Living Will: No Does patient have a Durable POA for Healthcare: No - Code Status/Comfort Care Code Status: Full Code Time Spent Managing Pts Care (In Minutes): 48
--- NOTE | 2024-11-03 21:30 | EDPHYS ---
Physician Documentation [facility] Name: Zeus Leone Age: 59 yrs Sex: Male : 1965 Arrival Date: 11/03/2024 Time: 19:33 Bed 8 Private MD: ED Physician Marbin Cunningham HPI: 11/03 20:06 This 59 yrs old Male presents to ER via Ambulatory with complaints of sp4 Dizziness. 20:52 Patient is a very pleasant 59-year-old male with history of hypertension and diabetes. sp4 Patient takes atenolol 100 mg p.o. daily losartan 100 mg p.o. daily Farxiga 10 mg p.o. daily and metformin as well. Patient reports in the last 2 weeks he has been feeling dizzy with physical exertion and positional changes. Patient had several episodes of near syncope. Today he got up to go to the bathroom and fell after he had near syncopal episode. Denied actual syncope. Reported no chest pain no palpitations.. Historical: - Allergies: 19:46 NKA; dd2 - PMHx: 19:46 Diabetes - NIDDM; Hypertension; dd2 - PSHx: 19:46 mass taken off of kidney; dd2 - Immunization history:: Adult Immunizations up to date. - Infectious Disease History:: Denies. - Social history:: Smoking status: Patient denies any tobacco usage or history of. - Family history:: not pertinent. ROS: 20:56 Constitutional: Negative for fever, chills, and weight loss, positive for exertional sp4 near syncope 20:56 All other systems are negative, Exam: 20:57 Constitutional: This is a well developed, well nourished patient who is awake, alert, sp4 and in no acute distress. Head/Face: Normocephalic, atraumatic. Eyes: Pupils equal round and reactive to light, extra-ocular motions intact. Lids and lashes normal. Conjunctiva and sclera are not injected. Cornea within normal limits. Periorbital areas with no swelling, redness, or edema. ENT: Nares patent. No nasal discharge, no septal abnormalities noted. Tympanic membranes are normal and external auditory canals are clear. Oropharynx with no redness, swelling, or masses, exudates, or evidence of obstruction, uvula midline. Mucous membranes moist. Neck: Trachea midline, no thyromegaly or masses palpated, and no cervical lymphadenopathy. Supple, full range of motion without nuchal rigidity, or vertebral point tenderness. Chest/axilla: Normal chest wall appearance and motion. Nontender with no deformity. No lesions are appreciated. Cardiovascular: Regular rate and rhythm with a normal S1 and S2. No gallops, murmurs, or rubs. Normal PMI, no JVD. No pulse deficits. Respiratory: Lungs have equal breath sounds bilaterally, clear to auscultation and percussion. No rales, rhonchi or wheezes noted. No increased work of breathing, no retractions or nasal flaring. Abdomen/GI: Soft, with normal bowel sounds. No distension or tympany. No guarding or rebound. No evidence of tenderness throughout. Back: No spinal tenderness. No costovertebral tenderness. Skin: Warm, dry with normal turgor. Normal color with no rashes, no lesions, and no evidence of cellulitis. MS/ Extremity: Pulses equal, no cyanosis. Neurovascular intact. Full, normal range of motion. Neuro: Awake and alert, GCS 15, oriented to person, place, time, and situation. Cranial nerves II-XII grossly intact. Motor strength 5/5 in all extremities. Sensory grossly intact. Psych: Awake, alert, with orientation to person, place and time. Behavior, mood, and affect are within normal limits 20:57 ECG was reviewed by the Attending Physician. EKG at 2007 sinus bradycardia rate 56 with left axis deviation left ventricular hypertrophy. Vital Signs: 19:44 BP 190 / 83; Pulse 59; Resp 17; Temp 98.4; Pulse Ox 100% on R/A; Weight 108.86 kg; dd2 Height 5 ft. 11 in. ; Pain 0/10; 20:27 BP 181 / 89 Supine; Pulse 61; kd3 20:27 BP 184 / 95 Sitting; Pulse 63; kd3 20:27 BP 177 / 88 Standing; Pulse 63; kd3 21:41 BP 171 / 86; Pulse 57; Resp 16; Pulse Ox 100% on R/A; kd3 19:44 Body Mass Index 33.47 (108.86 kg, 180.34 cm) dd2 19:44 Pain Scale: Adult dd2 [place] Coma Score: 20:57 Eye Response: spontaneous(4). Motor Response: obeys commands(6). Verbal Response: sp4 oriented(5). Total: 15. MDM: 20:08 Medical Screening Exam initiated sp4 21:16 Differential diagnosis: cardiac arrhythmia, generalized weakness, hyperventilation, sp4 TIA, vertigo. ED course: EXAM: CT brain without contrast HISTORY: Dizziness COMPARISON: None TECHNIQUE: Multiple contiguous axial images were obtained and a CT of the brain without contrast.. Sagittal and coronal reconstruction performed. Automated exposure control, adjustment of the mA and/or kV according to patient size, and/or iterative reconstruction. Unless otherwise specified, incidental findings do not require dedicated imaging follow-up FINDINGS: An intracranial bleed is not seen Ventricles are normal caliber No extra-axial fluid collection noted Mild low-density paraventricular white matter probably mild ischemic changes secondary to small vessel disease. No fluid within the visualized sinuses or mastoids noted. IMPRESSION: No acute intracranial abnormality noted. If the patient continues to have symptoms to suggest an acute intracranial abnormality then MRI of the brain would be recommended. . ED course: Procedure: Chest Single View HISTORY: Dizziness COMPARISON: 2021 FINDINGS: The lungs appear clear of acute infiltrate. No significant pleural effusion noted. The heart is normal size. IMPRESSION: No acute abnormality is displayed. . 21:27 Data reviewed: vital signs, nurses notes, lab test result(s), EKG, radiologic studies, sp4 CT scan, plain films. Consideration of Admission/Observation Escalation of care including admission/observation considered. ED course: Patient's primary physician is Dr. Hodge patient is here today for exertional near syncopal episodes worsening over the past 2 weeks. Patient reports dizziness and falling down secondary to getting very dizzy with physical exertion and with positional changes. Patient's workup thus far is remarkable for mild elevation of creatinine and elevated blood sugar. Patient has mild elevation in creatinine blood sugar 201 consistent with chronic diabetes. Was staffed with cardiology Dr. Hopkins and commercial real estate underwriter Dr. Fitzpatrick. Will be admitted for further evaluation and cardiology assessment in the morning.. 11/03 20:08 Order name: Basic Metabolic Panel; Complete Time: 21:11 sp4 11/03 20:08 Order name: CBC with Diff; Complete Time: 21:11 sp4 11/03 20:08 Order name: LFT's; Complete Time: :11 sp4 11/03 20:08 Order name: Magnesium; Complete Time: 21:11 sp4 11/03 20:08 Order name: NT PRO-BNP; Complete Time: 21:11 sp4 11/03 20:08 Order name: PT-INR; Complete Time: 21:11 sp4 11/03 20:08 Order name: Troponin HS; Complete Time: 21:11 sp4 11/03 21:28 Order name: CBC with Automated Diff EDMS 11/03 21:28 Order name: CBC with Automated Diff EDMS 11/03 21:28 Order name: Comprehensive Metabolic Panel EDMS 11/03 21:28 Order name: Comprehensive Metabolic Panel EDMS 11/03 21:28 Order name: Troponin High Sensitivity EDMS 11/03 21:28 Order name: Troponin High Sensitivity EDMS 11/03 21:28 Order name: Troponin High Sensitivity EDMS 11/03 21:28 Order name: Troponin High Sensitivity EDMS 11/03 20:08 Order name: XRAY Chest (1 view); Complete Time: 21:11 sp4 11/03 20:24 Order name: CT Head Brain wo Cont; Complete Time: 21:16 sp4 11/03 21:29 Order name: Echo with Doppler EDMS 11/03 21:29 Order name: Carotid Artery Bilateral EDMS 11/03 20:08 Order name: Cardiac monitoring; Complete Time: 20:08 sp4 11/03 20:08 Order name: EKG - Nurse/Tech; Complete Time: 20:08 sp4 11/03 20:08 Order name: IV Saline Lock; Complete Time: 20:31 sp4 11/03 20:08 Order name: Labs collected and sent; Complete Time: 20:31 sp4 11/03 20:08 Order name: O2 Per Protocol; Complete Time: 20:31 sp4 11/03 20:08 Order name: O2 Sat Monitoring; Complete Time: 20:31 sp4 EC:07 Rate is 56 beats/min. Rhythm is regular, Sinus bradycardia. Left axis deviation noted. sp4 MT interval is normal. QRS interval is normal. QT interval is normal. No Q waves. T waves are Normal. No ST changes noted. Clinical impression: No evidence of ischemia. Interpreted by me. Reviewed by me. Administered Medications: No medications were administered Disposition Summary: 11/03/24 21:30 Hospitalization Ordered Notes: Hospitalization Status: Observation sp4 Provider: Catrachito Fitzpatrick sp4 Location: Telemetry/MedSurg (observation) sp4 Condition: Stable sp4 Problem: new sp4 Symptoms: have improved sp4 Bed/Room Type: Standard sp4 Room Assignment: 201(11/03/24 21:36) vk Diagnosis - Orthostatic near syncopal episodes,, sinus bradycardia, exertional Near syncopesp4 Forms: - Medication Reconciliation Form sp4 - SBAR form sp4 - Leadership Thank You Letter sp4 Signatures: Dispatcher [employer] EDMS Marbin Cunningham MD MD sp4 Carole Briscoe DIANA, RN RN dd2 Corrections: (The following items were deleted from the chart) 20:09 20:09 BASIC METABOLIC PANEL+C.LAB.BRZ ordered. EDMS EDMS 20:09 20:09 CBC+H.LAB.BRZ ordered. EDMS EDMS 20:09 20:09 HEPATIC FUNCTION+C.LAB.BRZ ordered. EDMS EDMS 20:09 20:09 MAGNESIUM+C.LAB.BRZ ordered. EDMS EDMS 20:09 20:09 PROBNP+C.LAB.BRZ ordered. EDMS EDMS 20:09 20:09 PROTIME (+INR)+COAG.LAB.BRZ ordered. EDMS EDMS 20:09 20:09 Troponin High Sensitivity+C.LAB.BRZ ordered. EDMS EDMS 20:09 20:09 Chest Single View+RAD.RAD.BRZ ordered. EDMS EDMS 21:36 21:30 sp4 vk
--- NOTE | 2024-11-03 21:30 | ER ---
Nurse's Notes [facility] Name: Zeus Leone Age: 59 yrs Sex: Male : 1965 Arrival Date: 11/03/2024 Time: 19:33 Bed 8 Private MD: Diagnosis: Orthostatic near syncopal episodes,, sinus bradycardia, exertional Near syncope Presentation: 11/03 19:44 Chief complaint: Patient states: DIZZINESS THAT BEGAN APPROX 2 WEEKS AGO. PT REPORTS dd2 WORSE WHEN STANDING OR WALKING. HAS FALLEN TWICE WHILE WALKING. Coronavirus screen: At this time, the client does not indicate any symptoms associated with coronavirus-19. Ebola Screen: No symptoms or risks identified at this time. Initial Sepsis Screen: Does the patient meet any 2 criteria? No. Patient's initial sepsis screen is negative. Does the patient have a suspected source of infection? No. Patient's initial sepsis screen is negative. Risk Assessment: Do you want to hurt yourself or someone else? Patient reports no desire to harm self or others. Onset of symptoms is unknown. 19:44 Method Of Arrival: Ambulatory dd2 19:44 Acuity: YAIR 3 dd2 Triage Assessment: 19:46 General: Appears in no apparent distress. Behavior is calm, cooperative, appropriate dd2 for age. Pain: Denies pain. EENT: Reports DIZZINESS. Neuro: Level of Consciousness is awake, alert, obeys commands, Oriented to person, place, time, situation, Appropriate for age Analog Circuit Designer are equal bilaterally Moves all extremities. Gait is steady, Speech is normal, Facial symmetry appears normal, Reports dizziness, since X 2WEEKS. Cardiovascular: Patient's skin is warm and dry. Respiratory: Airway is patent Respiratory effort is even, unlabored, Respiratory pattern is regular, symmetrical. GI: No deficits noted. No signs and/or symptoms were reported involving the gastrointestinal system. Abdomen is non-distended, obese. : No deficits noted. No signs and/or symptoms were reported regarding the genitourinary system. Derm: No deficits noted. No signs and/or symptoms reported regarding the dermatologic system. Skin is intact, Skin is dry, Skin is normal, Skin temperature is warm. Musculoskeletal: No deficits noted. No signs and/or symptoms reported regarding the musculoskeletal system. Circulation, motion, and sensation intact. Range of motion: intact in all extremities. Historical: - Allergies: 19:46 NKA; dd2 - PMHx: 19:46 Diabetes - NIDDM; Hypertension; dd2 - PSHx: 19:46 mass taken off of kidney; dd2 - Immunization history:: Adult Immunizations up to date. - Infectious Disease History:: Denies. - Social history:: Smoking status: Patient denies any tobacco usage or history of. - Family history:: not pertinent. Screenin:09 [facility] ED Fall Risk Assessment (Adult) History of falling in the last 3 months, kd3 including since admission No falls in past 3 months (0 pts) Confusion or Disorientation No (0 pts) Intoxicated or Sedated No (0 pts) Impaired Gait No (0 pts) Mobility Assist Device Used No (0 pt) Altered Elimination No (0 pt) Score/Fall Risk Level 0 - 2 = Low Risk Oriented to surroundings. Abuse screen: Denies threats or abuse. Denies injuries from another. Nutritional screening: No deficits noted. Tuberculosis screening: No symptoms or risk factors identified. Assessment: 20:08 General: Appears in no apparent distress. Behavior is calm, cooperative. Pain: Denies kd3 pain. Neuro: Level of Consciousness is awake, alert, obeys commands, Oriented to person, place, time, situation. Cardiovascular: Patient's skin is warm and dry. Respiratory: Airway is patent Trachea midline Respiratory effort is even, unlabored. Vital Signs: 19:44 BP 190 / 83; Pulse 59; Resp 17; Temp 98.4; Pulse Ox 100% on R/A; Weight 108.86 kg; dd2 Height 5 ft. 11 in. ; Pain 0/10; 20:27 BP 181 / 89 Supine; Pulse 61; kd3 20:27 BP 184 / 95 Sitting; Pulse 63; kd3 20:27 BP 177 / 88 Standing; Pulse 63; kd3 21:41 BP 171 / 86; Pulse 57; Resp 16; Pulse Ox 100% on R/A; kd3 19:44 Body Mass Index 33.47 (108.86 kg, 180.34 cm) dd2 19:44 Pain Scale: Adult dd2 [place] Coma Score: 20:57 Eye Response: spontaneous(4). Motor Response: obeys commands(6). Verbal Response: sp4 oriented(5). Total: 15. ED Course: 19:37 Patient arrived in ED. jj6 19:46 Triage completed. dd2 19:46 Arm band placed on left wrist. dd2 19:54 Elena Yeh, RN is Primary Nurse. kd3 20:06 Marbin Cunningham MD is Attending Physician. sp4 20:09 Patient has correct armband on for positive identification. Provided Education on: EKG. kd3 20:09 EKG done, by medical imaging technician. reviewed by Marbin Cunningham MD. kd3 20:30 Inserted saline lock: 20 gauge in right antecubital area, using aseptic technique. oe Blood collected. Flushed with 10 mL NS. 20:31 Basic Metabolic Panel Sent. oe 20:31 CBC with Diff Sent. oe 20:31 LFT's Sent. oe 20:31 Magnesium Sent. oe 20:31 NT PRO-BNP Sent. oe 20:31 PT-INR Sent. oe 20:31 Troponin HS Sent. oe 20:44 XRAY Chest (1 view) In Process Unspecified. EDMS 20:48 CT Head Brain wo Cont In Process Unspecified. EDMS 21:29 Catrachito Fitzpatrick MD is Hospitalizing Provider. sp4 21:41 No provider procedures requiring assistance completed. Patient admitted, IV remains in kd3 place. Administered Medications: No medications were administered Medication: 21:41 VIS not applicable for this client. kd3 Outcome: 21:30 Decision to Hospitalize by Provider. sp4 21:42 Admitted to Med/surg accompanied by shwetha, kd3 21:42 Condition: stable 21:42 Discharge instructions given to patient, Instructed on the need for admit, 22:38 Patient left the ED. kd3 Signatures: Dispatcher [employer] EDMS Kg De La Rosa oe Anna Marie Marah jj6 Elena Yeh, RN RN kd3 Marbin Cunningham MD MD sp4 RYAN SMALL RN RN dd2
[2024-11-03 22:59] VITALS: O2SAT 100
[2024-11-03] MEDS: NA CHLORIDE 0.9% 1,000 ML IV SCH (23:18)
[2024-11-03 23:51] VITALS: BMI 33.5
[2024-11-04] MEDS: HYDRALAZINE HCL 20 MG/ML VIAL IV PRN (04:23)
[2024-11-04] MEDS: AMLODIPINE 5 MG TAB PO SCH (06:31)
[2024-11-04 07:16] LABS: Absolute Basophils 0.1 K/uL (0-0.5); Absolute Eosinophils 0.3 K/uL (0-0.5); Absolute Lymphocytes (CBC) 2.4 K/uL (0.7-4.9); Absolute Monocytes 0.6 K/uL (0.1-1.3); Absolute Neutrophil 5.1 K/uL (1.8-8.0); Basophils % 0.7 % (0-1.3); Eosinophils % 3.5 % (0-4.4); Hematocrit 45.9 % (39.6-49.0); Hemoglobin 16.1 g/dL (13.6-17.9); Lymphocytes % 28.4 % (15.3-44.8); MCH 30.6 pg (27.0-35.0); MCV 87.5 fL (80-100); MPV 8.2 fL (7.6-11.3); Monocytes % 6.8 % (3.3-12.3); Neutrophils % 60.6 % (41.7-73.7); Nucleated Red Blood Cells % 0.1 % (0-0); Platelets 135 thou/uL (152-406); RBC Red Blood Cell Count 5.25 M/uL (4.33-5.43); Red Cell Distribution Width 13.9 % (12.1-15.2)
[2024-11-04 07:43] LABS: Albumin 3.8 g/dL (3.4-5.0); Albumin/Globulin Ratio 1.2 (1.1-1.8); Anion Gap 9.8 mEq/L (5.0-15.0); Bilirubin Total 0.9 mg/dL (0.2-1.0); Globulin 3.2 g/dL (2.3-3.5); Potassium 3.8 mEq/L (3.5-5.1); Troponin High Sensitivity 28.7 pg/mL (<58.9)
[2024-11-04 07:46] LABS: Thyroid Stimulating Hormone 4.52 uIU/mL (0.358-3.740)
[2024-11-04] MEDS: ATORVASTATIN 20 MG TAB PO SCH (08:11)
[2024-11-04] MEDS: LOSARTAN/HCTZ 50-12.5 PO SCH (08:11)
[2024-11-04] MEDS: DULOXETINE 30 MG CAP PO SCH (08:11)
[2024-11-04] MEDS: ENOXAPARIN 40 MG/0.4 ML SQ SCH (08:12)
--- NOTE | 2024-11-04 08:59 | P.PN ---
Date of Service: 11/04/24 Subjective: No further episodes of dizziness overnight No acute events overnight Feels okay this morning ROS: 10 point ROS as noted above, otherwise negative Physical exam GEN: Alert, oriented, NAD HEENT: Normal conjunctiva, sclera anicteric CV: Sinus bradycardia in the 50s, no edema Pulm: Nonlabored respirations on room air ABD: Soft, nontender, nondistended MSK: No joint tenderness Integumentary: No rashes Neuro: Normal speech, normal affect Vitals reviewed Assessment: Dizziness/near syncope Bradycardia Hypertension Hyperlipidemia Diabetes mellitus type [id number] History of left adrenal gland removal Plan: Dizziness/near syncope Bradycardia Describes episodes of disequilibrium/vertigo Has not had true syncope thus far Denies chest pain does report feeling short of breath with exertion occasionally Holding atenolol Will repeat orthostatic vital signs Troponin negative thus far Obtain carotid Doppler Hypertension Continue losartan/hydrochlorothiazide Will hold atenolol given relative bradycardia Hyperlipidemia Continue statin Diabetes mellitus type [id number] ACHS Accu-Chek, sign scale insulin History of left adrenal gland removal Noted, many years ago DVT PPX:Lovenox Code status: Full code Time Spent Managing Pts Care (In Minutes): 35
[2024-11-04 12:14] VITALS: TEMP 97.6
--- NOTE | 2024-11-04 15:56 | RAD REPORT ---
EXAMINATION: US CAROTID DUPLEX CLINICAL INDICATION: , 59 years old. Syncope. TECHNIQUE: Real-time grayscale, color flow and spectral Doppler sonographic images were obtained of t extracranial carotid system using a linear transducer. [id number]. COMPARISON: No prior exam. FINDINGS: RIGHT: Common carotid artery: 103 cm/s Internal carotid artery: 110 cm/s External carotid artery: 51 cm/s Right ICA/CCA ratio: 1.1 Plaque Mild Calcified and noncalcified Vertebral artery Antegrade LEFT: Common carotid artery: 99 cm/s Internal carotid artery: 61 cm/s External carotid artery: 57 cm/s lEFT ICA/CCA ratio: 0.6 Plaque Mild Calcified and noncalcified Vertebral artery Antegrade IMPRESSION: No hemodynamically significant stenosis (greater than 50%) within the extracranial internal carotid [facility].
[2024-11-04 16:09] VITALS: BP 157/92
--- NOTE | 2024-11-04 16:22 | P.DS ---
Admission Date: 11/03/24 Discharge Date: 11/04/24 Reason for Admission: Syncope Brief History of Present Illness: 59-year-old male with past medical history hypertension, hyperlipidemia, diabetes brought to ER with dizziness and presyncopal episodes. Which started 2 weeks ago insidiously and has been feeling dizzy even with minimal physical exertion and postural changes. Patient had several episodes of near syncope and had multiple falls recently. Today he got up to go to the bathroom and fell after he had similar episode. Denies any loss of consciousness. Denies any chest pain or palpitations. No fever or chills. Denies any nausea vomiting or diarrhea. Patient was alert assessed in the ER and was admitted for further management of presyncopal episodes Hospital Course: Assessment: Dizziness/near syncope Bradycardia Hypertension Hyperlipidemia Diabetes mellitus type [id number] History of left adrenal gland removal Patient was admitted to the hospital for episodes of dizziness/near syncope. His symptoms sound to be more related to vertigo than cardiac. He was monitored on telemetry and had no significant rhythm he is, troponins were negative x 3. He was seen by cardiology who also lives his symptoms are more related to vertigo. He is on atenolol and his heart rate was in the 50s to 60s, recommended continuation of atenolol at this time will switch to amlodipine 5 mg daily which has been sent to his pharmacy. Carotid arteries were also evaluated and found to have no significant stenosis. Recommend follow-up with PCP and cardiology in 1 to 2 weeks If still having episodes of vertigo at home recommend attempting [place] maneuver and following up with ENTDr. Sunil Discontinue atenolol New medication amlodipine sent to pharmacy Continue other home indications as previously prescribed <Poncho Soriano - Last Filed: 11/04/24 16:21> Admission Date: 11/03/24 Discharge Date: 11/05/24 Hospital Course: Syncopal workup has been unremarkable except patient was found to have bradycardia Atenolol replaced with amlodipine given the bradycardia. Patient's symptoms probably related to benign positional vertigo. Patient advised to follow-up with ENT if the vertigo return. <bishnu rivera - Last Filed: 11/05/24 15:43> Disposition: ROUTINE DISCHARGE Discharge Condition: GOOD Vital Signs/Physical Exam: Temp Pulse Resp BP Pulse Ox 97.6 F 63 17 157/92 H 94 11/04/24 16:00 11/04/24 16:00 11/04/24 16:00 11/04/24 16:00 11/04/24 16:00 General: Alert, In no apparent distress, Oriented x3 HEENT: Atraumatic, PERRLA Neck: Supple, JVD not distended Respiratory: Clear to auscultation bilaterally, Normal air movement Cardiovascular: Regular rate/rhythm, Normal S1 S2 Gastrointestinal: Normal bowel sounds, No tenderness Musculoskeletal: No tenderness Integumentary: No rashes Neurological: Normal speech, Normal affect Laboratory Data at Discharge: WBC 8.50 thou/uL (4.3-10.9) 11/04/24 06:59 Hgb 16.1 g/dL (13.6-17.9) 11/04/24 06:59 Hct 45.9 % (39.6-49.0) 11/04/24 06:59 Plt Count 135 thou/uL (152-406) L 11/04/24 06:59 PT 11.6 SECONDS (10-13.0) 11/03/24 20:26 INR 1.02 11/03/24 20:26 Sodium 139 mEq/L (136-145) 11/04/24 06:59 Potassium 3.8 mEq/L (3.5-5.1) 11/04/24 06:59 BUN 17 mg/dL (7-18) 11/04/24 06:59 Creatinine 1.07 mg/dL (0.70-1.30) 11/04/24 06:59 Glucose 151 mg/dL (74-106) H 11/04/24 06:59 Magnesium 2.0 mg/dL (1.6-2.4) 11/03/24 20:26 Total Bilirubin 0.9 mg/dL (0.2-1.0) 11/04/24 06:59 AST 18 U/L (15-37) 11/04/24 06:59 ALT 30 U/L (16-61) 11/04/24 06:59 Alkaline Phosphatase 74 U/L (45-117) 11/04/24 06:59 <Poncho Soriano - Last Filed: 11/04/24 16:21> Vital Signs/Physical Exam: Temp Pulse Resp BP Pulse Ox 97.6 F 63 17 157/92 H 94 11/04/24 16:00 11/04/24 16:00 11/04/24 16:00 11/04/24 16:00 11/04/24 16:00 Laboratory Data at Discharge: WBC 8.50 thou/uL (4.3-10.9) 11/04/24 06:59 Hgb 16.1 g/dL (13.6-17.9) 11/04/24 06:59 Hct 45.9 % (39.6-49.0) 11/04/24 06:59 Plt Count 135 thou/uL (152-406) L 11/04/24 06:59 PT 11.6 SECONDS (10-13.0) 11/03/24 20:26 INR 1.02 11/03/24 20:26 Sodium 139 mEq/L (136-145) 11/04/24 06:59 Potassium 3.8 mEq/L (3.5-5.1) 11/04/24 06:59 BUN 17 mg/dL (7-18) 11/04/24 06:59 Creatinine 1.07 mg/dL (0.70-1.30) 11/04/24 06:59 Glucose 151 mg/dL (74-106) H 11/04/24 06:59 Magnesium 2.0 mg/dL (1.6-2.4) 11/03/24 20:26 Total Bilirubin 0.9 mg/dL (0.2-1.0) 11/04/24 06:59 AST 18 U/L (15-37) 11/04/24 06:59 ALT 30 U/L (16-61) 11/04/24 06:59 Alkaline Phosphatase 74 U/L (45-117) 11/04/24 06:59 <bishnu rivera - Last Filed: 11/05/24 15:43> Diet: Regular Activity: Ad jose Time spent managing pt's care (in minutes): 46 <Poncho Soriano - Last Filed: 11/04/24 16:21> <bishnu rivera - Last Filed: 11/05/24 15:43> Home Medications: Atorvastatin Calcium [Lipitor*] 20 mg PO DAILY 12/09/21 Dapagliflozin Propanediol [Farxiga] 10 mg PO DAILY 12/09/21 Losartan/Hydrochlorothiazide [Losartan-Hctz 100-25 mg Tab] 1 tab PO DAILY 12/09/21 Metformin ER [Glucophage ER*] 1,000 mg PO BID 12/09/21 Cholecalciferol (Vitamin D3) [Decara] 50,000 units PO Q7D 11/03/24 Duloxetine [Cymbalta *] 30 mg PO DAILY 11/03/24 Amlodipine [Norvasc*] 5 mg PO DAILY #30 tab 11/04/24 New Medications: Amlodipine [Norvasc*] 5 mg PO DAILY #30 tab Physician Discharge Instructions: Patient was admitted to the hospital for episodes of dizziness/near syncope. His symptoms sound to be more related to vertigo than cardiac. He was monitored on telemetry and had no significant rhythm he is, troponins were negative x 3. He was seen by cardiology who also lives his symptoms are more related to vertigo. He is on atenolol and his heart rate was in the 50s to 60s, recommended continuation of atenolol at this time will switch to amlodipine 5 mg daily which has been sent to his pharmacy. Carotid arteries were also evaluated and found to have no significant stenosis. Recommend follow-up with PCP and cardiology in 1 to 2 weeks If still having episodes of vertigo at home recommend attempting [place] maneuver and following up with ENTDrDaryl Barber Discontinue atenolol New medication amlodipine sent to pharmacy Continue other home indications as previously prescribed Followup: Mira Barber DO [ACTIVE - CAN ADMIT] - 1-2 Weeks Loy Hodge MD [Primary Care Provider] - 1-2 Weeks Jonas Hopkins MD [ACTIVE - CAN ADMIT] - 1-2 Weeks
--- NOTE | 2024-11-04 23:14 | CON ---
Date of Consultation: 11/04/2024 Reason For Consultation: Syncope and dizziness. History Of Present Illness: 59-year-old male with history of hypertension, diabetes, dyslipidemia, p resented to the emergency room with near syncopal episodes. He said he started to feel dizzy in the past 2 weeks. He describes it more of a vertigo-like symptoms with things spinning around. 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 He said his balances had been good. He denies having any chest pain or palpitations. No cardiac complaints. Past Medical History: As outlined above in the HPI. Medications: Detailed home medication list was reviewed. Please refer to reconciliation sheet. Allergies: NO KNOWN DRUG ALLERGIES. Family History: No premature coronary artery disease or cancer. Social History: Does not smoke or drink. Does not use any drugs. Review of Systems: All systems reviewed and they were negative except as mentioned in the HPI. Physical Examination: Vital Signs: Reviewed. Blood pressure on arrival to the emergency room was 190/83. Head and Neck: Pupils are equal, reactive to light. Intact eye movements. No JVD. No cervical lym phadenopathy. Neck is supple. Thyroid is not enlarged. Lungs: Clear to auscultation bilaterally. No rhonchi, wheezing, or crackles. No accessory muscle u se. Heart: Regular rate and rhythm. No extra sounds. Abdomen: Soft, nontender. Bowel sounds positive. No organomegaly. No masses or hernia. No rigidi ty or rebound. Extremities: No edema, clubbing, or cyanosis. Intact pulses. Skin: No rash. No nodules. Neurologic: Alert, awake, and oriented x3. No acute focal deficits appreciated. Lymph Nodes: No cervical or axillary lymphadenopathy. Investigations: His cardiac enzymes are negative. NT-proBNP is elevated at 583. BUN 17, creatinine 1.07, and hemoglobin is 16.1. Assessment And Recommendations: 1. Dizziness with near-syncope. His symptoms that he is describing represent vertigo. I recommend E NT evaluation and Neurology evaluation. It could be benign positional vertigo, however, monitor on t elemetry and the patient needs an echocardiogram which can be arranged for and done as an outpatient. 2. Hypertension. Blood pressure is extremely high, uncontrolled. Resume home medications and adjust further. 3. 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 Recommend event monitor to be done as an outpatient along with the echo as well as outpatient ischemia evaluation due to multiple risk f actors. 4. Elevated NT-proBNP. Patient will need an echo to further evaluate. 5. Dyslipidemia, on statin, to continue. Cardiology will sign-off, and the patient to follow up early next week for outpatient workup as outli brandyn above. SR/MODL Voice ID: [id number] Report ID: [id number]
== END 2024-11-04 17:07 | disposition home or self-care (01) ==
LOC: ER 19:33 → 2ND 21:20
PROVIDERS: ADMIT Family Medicine; ATTEND Internal Medicine
DX: R55 Syncope and collapse (principal); N17.9 Acute kidney failure, unspecified; R79.89 Other specified abnormal findings of blood chemistry; I10 Essential (primary) hypertension; R00.1 Bradycardia, unspecified; E78.5 Hyperlipidemia, unspecified; Z91.81 History of falling
CPT/HCPCS: 85025 ×2; 80048; 36415; 83735; 85610; 82947 ×3; 80076; 84443; 84484 ×3; 84439; 80053; 82533; 82088; 83880; 70450; 71045; 93880; J0360; J1650; J7030; G0378